=== PATIENT | female | born 1930 | race Caucasian/White ===

== ENCOUNTER 2016-02-11 10:50 | Outpatient (CLI) | payer MEDICARE, OTHER | END 2016-02-11 10:51 | disposition home or self-care (01) | DX: N30.00 Acute cystitis without hematuria (principal) ==

== ENCOUNTER 2016-02-11 11:00 | Outpatient (CLI) | payer MEDICARE, OTHER | END 2016-02-11 11:01 | disposition home or self-care (01) | DX: N30.00 Acute cystitis without hematuria (principal); I10 Essential (primary) hypertension ==

== ENCOUNTER 2016-02-11 14:03 | Emergency (ER) | payer MEDICARE, OTHER ==
[2016-02-11] MEDS ORDERED: SODIUM CHLORIDE 0.9% 1,000 ML IV ONE (15:17)
[2016-02-11] MEDS ORDERED: cefTRIAXone 1 GM in SODIUM CHLORIDE 0.9% MINIBAG 100 ML IV STA (17:28)
== END 2016-02-11 17:47 | disposition home or self-care (01) ==
DX: N30.00 Acute cystitis without hematuria (principal); R06.02 Shortness of breath; R53.1 Weakness; J44.9 Chronic obstructive pulmonary disease, unspecified; K21.9 Gastro-esophageal reflux disease without esophagitis; M19.90 Unspecified osteoarthritis, unspecified site; I10 Essential (primary) hypertension

== ENCOUNTER 2016-03-09 09:03 | Outpatient (CLI) | payer MEDICARE, OTHER | END 2016-03-09 09:04 | disposition home or self-care (01) | DX: D50.9 Iron deficiency anemia, unspecified (principal); R63.4 Abnormal weight loss; N30.90 Cystitis, unspecified without hematuria; R79.9 Abnormal finding of blood chemistry, unspecified ==

== ENCOUNTER 2016-03-17 07:53 | Outpatient (CLI) | payer MEDICARE, OTHER | END 2016-03-17 07:54 | disposition home or self-care (01) | DX: D64.9 Anemia, unspecified (principal) ==

== ENCOUNTER 2016-04-16 09:01 | Outpatient (CLI) | payer MEDICARE, OTHER | END 2016-04-16 09:02 | disposition home or self-care (01) | DX: L29.8 Other pruritus (principal); L57.0 Actinic keratosis; Z85.828 Personal history of other malignant neoplasm of skin; L21.8 Other seborrheic dermatitis ==

== ENCOUNTER 2016-05-07 17:57 | Outpatient (CLI) | payer MEDICARE, OTHER | END 2016-05-07 17:58 | disposition home or self-care (01) | DX: L29.8 Other pruritus (principal) ==

== ENCOUNTER 2016-05-29 18:29 | Outpatient (CLI) | payer MEDICARE, OTHER | END 2016-05-29 18:30 | disposition critical access hospital (66) | DX: R53.1 Weakness (principal) | CPT/HCPCS: A0425; A0429 ==

== ENCOUNTER 2016-05-29 18:43 | Emergency (ER) | payer MEDICARE, OTHER ==
[2016-05-29] MEDS ORDERED: SODIUM CHLORIDE 0.9% 1,000 ML IV ONE (19:02)
== END 2016-05-29 21:25 | disposition home or self-care (01) ==
DX: R53.1 Weakness (principal); M79.1 Myalgia; R19.7 Diarrhea, unspecified; D64.9 Anemia, unspecified; N28.9 Disorder of kidney and ureter, unspecified

== ENCOUNTER 2016-06-03 15:40 | Outpatient (CLI) | payer MEDICARE, OTHER | END 2016-06-03 15:41 | disposition home or self-care (01) | DX: R50.9 Fever, unspecified (principal); M79.1 Myalgia ==

== ENCOUNTER 2016-06-14 08:01 | Outpatient (CLI) | payer MEDICARE, OTHER | END 2016-06-14 08:02 | disposition home or self-care (01) | DX: M35.3 Polymyalgia rheumatica (principal) ==

== ENCOUNTER 2016-06-22 09:35 | Outpatient (CLI) | payer MEDICARE, OTHER | END 2016-06-22 09:36 | disposition home or self-care (01) | DX: M35.3 Polymyalgia rheumatica (principal) ==

== ENCOUNTER 2016-06-26 10:00 | Outpatient (CLI) | payer MEDICARE, OTHER | END 2016-06-26 10:01 | disposition home or self-care (01) | LOC: LAB 10:00 | PROVIDERS: ATTEND Physician Assistant | DX: Z71.89 Other specified counseling (principal); L81.4 Other melanin hyperpigmentation; L29.8 Other pruritus | CPT/HCPCS: 87177; 87209 ==

== ENCOUNTER 2016-06-30 10:12 | Outpatient (CLI) | payer MEDICARE, OTHER | END 2016-06-30 10:13 | disposition home or self-care (01) | LOC: LAB 10:12 | PROVIDERS: ATTEND Internal Medicine | DX: M35.3 Polymyalgia rheumatica (principal) | CPT/HCPCS: 36415; 85651; 86140 ==

== ENCOUNTER 2016-07-02 14:43 | Outpatient (CLI) | payer MEDICARE, OTHER ==
--- NOTE | 2016-07-06 15:20 | DEXA Report ---
DEXA SCAN: 07/02/2016 CLINICAL INDICATION: Osteoporosis. TECHNIQUE: Dual energy x-ray absorptiometry (DXA) was performed on a [employer] system. Regions measured are the AP spine, femoral neck, and, if needed, forearm. COMPARISON: None. In accordance with the International Society for Clinical Densitometry (ISCD) guidelines, data from previous exams may be reanalyzed using current recommendations and techniques. This is done to allow a more accurate basis for comparison with the current study. FINDINGS: The data for the lumbar spine is as follows: REGION BMD (g/cm/cm) T-SCORE Z-SCORE L1 1.019 -0.9 1.6 L2 0.921 -2.3 0.2 L3 1.019 -1.5 1.0 L4 1.152 -0.4 2.1 TOTAL 1.037 -1.2 1.3 NOTE: All evaluable vertebrae are used for classification. The data for the hip is as follows: REGION BMD (g/cm/cm) T-SCORE Z-SCORE Neck 0.738 -2.2 0.7 TOTAL 0.747 -2.1 0.7 NOTE: The femoral neck or total proximal femur, whichever is lowest, is used for classification. * Denotes significant change at the 95% confidence level. Denotes dissimilar scan types or analysis methods. IMPRESSION: THE WHO CLASSIFICATION BASED ON THE INTERNATIONAL REFERENCE STANDARD IS OSTEOPENIA. THE FRACTURE RISK IS INCREASED. RECOMMENDATION: Patients with diagnosis of osteoporosis or osteopenia should have regular bone mineral density assessment. For those eligible for Medicare, routine testing is allowed once every 2 years. Testing frequency can be increased for patients who have rapidly progressing disease or for those who are receiving medical therapy to restore bone mass. COMMENT: World Health Organization (WHO) definitions for osteoporosis and osteopenia: NORMAL BMD: T-score at -1.0 or higher, fracture risk is low. OSTEOPENIA BMD: T-score between -1.0 and -2.5, fracture risk is increased. OSTEOPOROSIS BMD: T-score at -2.5 or lower, fracture risk high. National Osteoporosis Foundation recommends: 1. Obtain adequate dietary calcium (at least 1200 mg per day) and vitamin D (400 -800 international units per day). 2. Participate, as appropriate, in regular weightbearing and muscle- strengthening exercise. 3. Avoid tobacco use and reduce alcohol and caffeine intake. 4. For more detailed information see the website at www.NOF.org. MTDD
== END 2016-07-02 14:44 | disposition home or self-care (01) ==
LOC: DI 14:43
PROVIDERS: ATTEND Internal Medicine
DX: M85.89 Other specified disorders of bone density and structure, multiple sites (principal)
CPT/HCPCS: 77080

== ENCOUNTER 2016-07-14 09:56 | Outpatient (CLI) | payer MEDICARE, OTHER | END 2016-07-14 09:57 | disposition home or self-care (01) | LOC: LAB 09:56 | PROVIDERS: ATTEND Internal Medicine | DX: M35.3 Polymyalgia rheumatica (principal) | CPT/HCPCS: 36415; 85651; 86140 ==

== ENCOUNTER 2016-07-19 20:35 | Inpatient (IN) | payer MEDICARE, OTHER ==
[2016-07-19] MEDS ORDERED: HYDROCORTISONE SUCCINATE 100 MG/2 ML VIAL IVP ONE (20:54)
[2016-07-19] MEDS ORDERED: SODIUM CHLORIDE 0.9% 1,000 ML IV ONE ×5 (21:00→23:37)
[2016-07-19] MEDS ORDERED: HYDROCORTISONE SUCCINATE 100 MG/2 ML VIAL IVP STA (21:00)
--- NOTE | 2016-07-19 21:04 | ED Physician Documentation ---
History of Present Illness - Stated complaint Stated Complaint: BODY ACHES - Chief complaint Chief Complaint: Back Pain - History obtained from History obtained from: Patient, Family - History of Present Illness Timing: Today - Additonal information Additional information: 86 y/o female on prednisone for PMR has developed a cough 3 days ago and today she has developed profound weakness, vomiting and worsening pain of her PMR. She has been tapered to about 10mg this past week and she is getting weekly blood draws to check her ESR. Review of Systems Constitutional: reports: Myalgias. denies: Fever, Chills Eyes: denies: Decreased vision Ears: denies: Ear pain Nose: reports: Rhinorrhea / runny nose, Sinus pressure / pain Throat: denies: Sore throat Cardiac: denies: Chest pain / pressure, Palpitations Respiratory: reports: Cough. denies: Dyspnea GI: reports: Nausea, Vomiting. denies: Abdominal Pain, Constipation, Diarrhea : denies: Dysuria, Frequency Skin: denies: Rash Musculoskeletal: denies: Neck pain, Back pain, Extremity pain Neurologic: reports: Generalized weakness. denies: Focal weakness, Numbness PD PAST MEDICAL HISTORY - Past Medical History Cardiovascular: Arrhythmia Respiratory: COPD Neuro: None Endocrine/Autoimmune: None GI: GERD, Hiatal hernia : Other HEENT: None Psych: None Musculoskeletal: Osteoarthritis, Osteoporosis Derm: Eczema, Psoriasis, Other - Past Surgical History Past Surgical History: Yes General: Cholecystectomy, Colonoscopy, EGD Ortho: Hip replacement, Other /[employer]: Other Cardiovascular: Other HEENT: Cataracts Derm: Skin cancer surgery - Present Medications Home Medications: Ambulatory Orders Medication Instructions Recorded Confirmed Calcium Carbonate [Calcium] 600 mg PO DAILY 04/01/13 05/29/16 Amitriptyline [Elavil] 10 mg PO HS 11/08/13 05/29/16 Montelukast [Singulair] 10 mg PO QPM 05/18/16 05/29/16 Triamcinolone 0.1% Cream [Kenalog 15 gm TOP 05/29/16 0.1% Cream] - Allergies Allergies/Adverse Reactions: Allergies Allergy/AdvReac Type Severity Reaction Status Date / Time ciprofloxacin HCl * Allergy Intermediate Itching Verified 02/11/16 14:32 [From Cipro] Sulfa (Sulfonamide Allergy Mild Respiratory Verified 02/11/16 14:32 Antibiotics) ciprofloxacin [From Cipro] Allergy Itching Verified 02/11/16 14:32 nitrofurantoin Allergy Unknown Verified 02/14/16 15:11 Ubdqeir-Vbg-Dnx Reductase Allergy Cramps Verified 02/11/16 14:32 Inhibitor levofloxacin AdvReac Nausea Verified 02/11/16 14:32 metoprolol AdvReac Respiratory Verified 02/11/16 14:32 shrimp Allergy Severe Anaphylaxis Uncoded 02/11/16 14:32 statin Allergy Unknown Uncoded 02/14/16 15:11 - Social History Does the pt smoke?: No Smoking Status: Never smoker Does the pt drink ETOH?: Yes Does the pt have substance abuse?: No - Immunizations Immunizations are current?: Yes - POLST Patient has POLST: Yes POLST Status: Full Code PD ED PE NORMAL - Vitals Vital signs reviewed: Yes (febrile tachy and hypotensive ) - General General: Well developed/nourished, Other (The patient appears anxious and is in pain ) - HEENT HEENT: Atraumatic, PERRL, EOMI - Neck Neck: Supple, no meningeal sign - Cardiac Cardiac: Other (tachy with a rate of 120 and regular) - Respiratory Respiratory: No respiratory distress, Other (unable to cooperate with exam well. bibasilar rhonchi are present. ) - Abdomen Abdomen: Soft, Non tender, Other (well healed surgical scars without inflamation ) - Back Back: No CVA TTP, No spinal TTP - Derm Derm: Normal color, Warm and dry, No rash - Extremities Extremities: No deformity, No edema - Neuro Neuro: No motor deficit, No sensory deficit - Psych Psych: Normal affect, Other (mood is anxious ) Results - Vitals Vitals: Vital Signs - 24 hr 07/19/16 07/19/16 07/19/16 20:44 21:08 21:39 Temperature 38.4 C H 39.2 C H Heart Rate 122 H 107 H 105 H Respiratory 20 20 26 H Rate Blood Pressure 85/57 L 85/51 L 76/48 L O2 Saturation 100 98 97 07/19/16 07/19/16 07/19/16 21:56 22:06 22:39 Temperature Heart Rate 108 H 106 H 100 Respiratory 28 H 22 18 Rate Blood Pressure 66/40 L 69/52 L 67/52 L O2 Saturation 98 95 93 07/19/16 07/19/1617 23:37 23:50 00:10 Temperature Heart Rate 104 H 101 H 108 H Respiratory 22 29 H 8 L Rate Blood Pressure 74/55 L 76/50 L O2 Saturation 95 94 94 07/20/16 07/20/16 07/20/16 00:15 00:20 00:25 Temperature Heart Rate 105 H 105 H 105 H Respiratory 28 H 26 H 25 H Rate Blood Pressure 120/74 122/72 122/71 O2 Saturation 94 95 96 07/20/16 07/20/16 00:30 00:50 Temperature Heart Rate 104 H 104 H Respiratory 26 H 22 Rate Blood Pressure 123/70 114/74 O2 Saturation 96 97 Oxygen O2 Source Nasal cannula Oxygen Flow Rate 4 - Labs Labs: Laboratory Tests 07/19/16 07/19/16 07/19/16 20:50 20:50 20:50 WBC 10.8 RBC 3.52 L Hgb 11.0 L Hct 33.5 L MCV 95.1 MCH 31.3 H MCHC 32.9 RDW 15.7 H Plt Count 237 MPV 8.3 Neut # Not Reportable Lymph # Not Reportable [place] # Not Reportable Eos # Not Reportable Baso # Not Reportable Absolute Nucleated RBC Not Reportable Total Counted 100 Band Neuts % (Manual) 20 H Neutrophils # (Manual) 9.9 H Lymphocytes # (Manual) 0.1 L Monocytes # (Manual) 0.4 Eosinophils # (Manual) 0.2 Basophils # (Manual) 0.1 Nucleated RBCs Not Reportable Differential Comment MANUAL DIFFERENTIAL Manual Slide Review Indicated WBC Morphology NORMAL APPEARANCE Platelet Estimate NORMAL (130-450,000) Platelet Morphology NORMAL APPEARANCE RBC Morph Micro Appear NORMAL APPEARANCE ESR Sodium 136 Potassium 4.2 Chloride 101 Carbon Dioxide 24 Anion Gap 11.0 BUN 31 H Creatinine 1.5 H Estimated GFR (MDRD) 33 L Glucose 103 H Lactic Acid Calcium 9.2 Total Bilirubin 0.5 AST 24 ALT 17 Alkaline Phosphatase 53 Troponin I < 0.04 C-Reactive Protein 4.0 H Total Protein 6.4 L Albumin 3.5 Globulin 2.9 Albumin/Globulin Ratio 1.2 Lipase 116 H Urine Color Urine Clarity Urine pH Ur Specific [place] Urine Protein Urine Glucose (UA) Urine Ketones Urine Occult Blood Urine Nitrite Urine Bilirubin Urine Urobilinogen Ur Leukocyte Esterase Ur Microscopic Review Urine Culture Comments 07/19/16 07/19/16 07/19/16 20:50 20:50 21:53 WBC RBC Hgb Hct MCV MCH MCHC RDW Plt Count MPV Neut # Lymph # [place] # Eos # Baso # Absolute Nucleated RBC Total Counted Band Neuts % (Manual) Neutrophils # (Manual) Lymphocytes # (Manual) Monocytes # (Manual) Eosinophils # (Manual) Basophils # (Manual) Nucleated RBCs Differential Comment Manual Slide Review WBC Morphology Platelet Estimate Platelet Morphology RBC Morph Micro Appear ESR 29 Sodium Potassium Chloride Carbon Dioxide Anion Gap BUN Creatinine Estimated GFR (MDRD) Glucose Lactic Acid 2.3 H Calcium Total Bilirubin AST ALT Alkaline Phosphatase Troponin I C-Reactive Protein Total Protein Albumin Globulin Albumin/Globulin Ratio Lipase Urine Color YELLOW Urine Clarity CLEAR Urine pH 7.5 Ur Specific [place] 1.010 Urine Protein NEGATIVE Urine Glucose (UA) NEGATIVE Urine Ketones NEGATIVE Urine Occult Blood NEGATIVE Urine Nitrite NEGATIVE Urine Bilirubin NEGATIVE Urine Urobilinogen 0.2 (NORMAL) Ur Leukocyte Esterase NEGATIVE Ur Microscopic Review NOT INDICATED Urine Culture Comments NOT INDICATED - Rads (name of study) 2 view chest Radiology: Prelim report reviewed (Impression: No acute cardiopulmonary abnormality.), EMP read indepedently, See rad report 1 view chest Radiology: Prelim report reviewed (Impression: Right IJ line to the low SVC, otherwise no change. No pneumothorax identified.), EMP read indepedently, See rad report CT chest without Radiology: Prelim report reviewed (Impression: 1. New bibasilar pulmonary opacities, right greater than left, with small pleural effusions. Suspect pneumonia or aspiration. 2. Increased interstitial prominence which may represent pulmonary edema. 3. Groundglass opacity in the left upper lobe appears more tense and slightly larger compared with the prior exam. Slowly growing neoplasm not excluded. 4. Mildly enlarged paratracheal lymph node measuring 1 point exam air. This is nonspecific.), EMP read indepedently, See rad report CT ab/pel w/o Radiology: Prelim report reviewed (Impression: 1. See chest CT report regarding pulmonary findings. 2. Multiple nonspecific normal to upper normal caliper fluid -filled small bowel loops with air-fluid levels. 3. Moderate stool in the colon. ), EMP read indepedently, See rad report Procedures - Central Line Central Line Preparation: Ultrasound used, Sterile prep and drape Central line location: Right IJ Central line type: Triple lumen Central line aftercare: Chlorhexidine disc placed, Secured - IVC sono (time) 2100 Bedside IVC sono: IVC measures (cm) (1.02), IVC collapsed c insp (cm) (complete) , Dehydration 2350 Bedside IVC sono: IVC measures (cm) (1.47), IVC collapsed c insp (cm) (1.20), Euvolemia PD MEDICAL DECISION MAKING - ED course Complexity details: reviewed old records, reviewed results, re-evaluated patient , considered differential, d/w patient, d/w family ED course: 86 y/o female being treated for PMR has developed a cough and now is profoundly weak. She is found to have low central venous pressure and IV saline is given as well as stress dose of hydrocortisone. She is febrile, tachycardic and hypotensive on arrival. She meets criteria for admission for sepsis and Dr. Begum is consulted in the case at 2200 and recommends placement of a central line and administration of zosyn and vanco as well as a CT of the abdomen and pelvis and chest. The central line is placed and the fluid rates is decreased to 200ml/hr and levophed is started. The patient has remained alert, talkative and oriented. Prior to transfer to the CT scan the patient's CVP is checked by ultrasound and is normal. CT demonstrates bibasilar infiltrates. She does have improvement in her blood pressure on levofed and is transferred to the CCU on levophed with a motley in place. Departure - Departure Disposition: [address] [facility] DC/Xfer Clinical Impression: Sepsis Qualifiers: Sepsis type: sepsis due to unspecified organism Qualified Code(s): A41.9 - Sepsis, unspecified organism Pneumonia Qualifiers: Pneumonia type: due to unspecified organism Laterality: bilateral Lung location : lower lobe of lung Qualified Code(s): J18.9 - Pneumonia, unspecified organism Condition: Serious
[2016-07-19 21:13] LABS: BASOPHILS % (AUTO) 0.2 %; EOSINOPHILS % (AUTO) 0.9 %; HCT - HEMATOCRIT 33.5 % (37.0-47.0); LYMPHOCYTES % (AUTO) 4.4 %; MEAN CORPUSCULAR HEMOGLOBIN 31.3 pg (27.0-31.0); MEAN CORPUSCULAR HGB CONC 32.9 g/dL (32.0-36.0); MEAN CORPUSCULAR VOLUME 95.1 fL (81.0-99.0); MEAN PLATELET VOLUME 8.3 fL (7.9-10.8); MONOCYTES % (AUTO) 3.5 %; RED BLOOD COUNT 3.52 10^6/uL (4.20-5.40); RED CELL DISTRIBUTION WIDTH 15.7 % (12.0-15.0); UNCORRECTED WHITE BLOOD COUNT 10.8 x10^3/uL; WHITE BLOOD COUNT 10.8 x10^3/uL (4.8-10.8)
[2016-07-19 21:31] LABS: ALBUMIN/GLOBULIN RATIO 1.2 (1.0-2.2); BILIRUBIN,TOTAL 0.5 mg/dL (0.2-1.0); CALCIUM 9.2 mg/dL (8.5-10.3); CREATININE 1.5 mg/dL (0.4-1.0); POTASSIUM 4.2 mmol/L (3.5-5.0); TOTAL PROTEIN 6.4 g/dL (6.7-8.2)
[2016-07-19] MEDS ORDERED: ACETAMINOPHEN 325 MG TABLET PO ONE (21:40)
--- NOTE | 2016-07-19 21:45 | XRAY Preliminary Report ---
Exam: XR Chest 2 View PA/LAT IMPRESSION: No acute cardiopulmonary abnormality. [facility] SITE ID: [id number]
--- NOTE | 2016-07-19 21:47 | XRAY Report ---
EXAM: CHEST RADIOGRAPHY EXAM DATE: 07/19/2016 09:16 PM. CLINICAL HISTORY: Cough weakness. COMPARISON: 05/29/2016 chest x-ray. TECHNIQUE: 2 views. FINDINGS: Lungs/Pleura: No focal opacities evident. No pleural effusion. No pneumothorax. Normal volumes. Mediastinum: Normal heart size and mitral annulus calcifications noted. Other: None. IMPRESSION: No acute cardiopulmonary abnormality. [facility] Referring Provider Line: [phone] SITE ID: [id number]
[2016-07-19] MEDS ORDERED: ACETAMINOPHEN 325 MG TABLET PO STA (21:51)
[2016-07-19] MEDS ORDERED: cefTRIAXone 1 GM VIAL ONE (21:59)
[2016-07-19 22:01] LABS: BAND NEUTROPHILS % (MANUAL) 20 %; BASOPHILS % (MANUAL) 1 %; EOSINOPHILS % (MANUAL) 2 %; LYMPHOCYTES % (MANUAL) 1 %; NEUTROPHILS % (MANUAL) 72 %; TOTAL CELLS COUNTED 100
[2016-07-19 22:03] LABS: PLATELET ESTIMATE, MANUAL NORMAL (130-450,000) (NORMAL); PLATELET MORPHOLOGY NORMAL APPEARANCE (NORMAL); WBC MORPHOLOGY (MULTIPLE) NORMAL APPEARANCE (NORMAL)
[2016-07-19] MEDS ORDERED: VANCOMYCIN INJ 1 GM in SODIUM CHLORIDE 0.9% 250 ML IV STA (22:03)
[2016-07-19] MEDS ORDERED: PIPERACILLIN/TAZOBACTAM 4.5 GM in SODIUM CHLORIDE 0.9% MINIBAG 100 ML IV STA (22:03)
[2016-07-19 22:04] LABS: NP AUTO DIFFERENTIAL? YES; NP MAN DIFFERENTIAL? NO
[2016-07-19 22:05] LABS: BILIRUBIN,URINE NEGATIVE (NEGATIVE); PH,URINE 7.5 PH (5.0-7.5)
[2016-07-19 22:08] LABS: UA CHARGE (STRIP ONLY) YES; UR CULTURE IF IND NOT INDICATED
[2016-07-19] MEDS ORDERED: VANCOMYCIN 1 GM VIAL ONE (22:54)
[2016-07-19] MEDS ORDERED: SODIUM CHLORIDE 0.9% 250 ML IV ONE (22:55)
--- NOTE | 2016-07-19 23:54 | XRAY Preliminary Report ---
Exam: XR Chest 1 View IMPRESSION: Right IJ line to the low SVC, otherwise no change. No pneumothorax identified. [facility] SITE ID: [id number]
--- NOTE | 2016-07-19 23:57 | XRAY Report ---
EXAM: CHEST RADIOGRAPHY EXAM DATE: 07/19/2016 11:40 PM. CLINICAL HISTORY: Line placement. COMPARISON: Today at 2108. TECHNIQUE: 1 view. FINDINGS: Lungs/Pleura: No focal opacities evident. No pleural effusion. No pneumothorax. Mediastinum: Within exam limitations, cardiomediastinal contour is normal. Other: Right IJ line to the low SVC. IMPRESSION: Right IJ line to the low SVC, otherwise no change. No pneumothorax identified. [facility] Referring Provider Line: [phone] SITE ID: [id number]
[2016-07-20] MEDS ORDERED: SODIUM CHLORIDE 0.9% 1,000 ML IV ONE ×2 (00:22→00:45)
[2016-07-20] MEDS ORDERED: ONDANSETRON 4 MG/2 ML VIAL IVP STA (00:35)
[2016-07-20] MEDS ORDERED: HYDROmorphone 1 MG/ML SYRINGE IVP STA (00:35)
[2016-07-20] MEDS ORDERED: HYDROmorphone 1 MG/ML SYRINGE ONE (00:44)
--- NOTE | 2016-07-20 00:44 | CT Report ---
EXAM: CT CHEST EXAM DATE: 07/20/2016 12:18 AM. CLINICAL HISTORY: RUQ pain, sepsis, cough. COMPARISONS: 10/18/2015. TECHNIQUE: Routine helical CT imaging was performed through the chest. IV contrast: None. Reconstructions: Coron al and sagittal. In accordance with CT protocol optimization, one or more of the following dose reduction techniques w ere utilized for this exam: automated exposure control, adjustment of mA and/or KV based on patient s ize, or use of iterative reconstructive technique. FINDINGS: Lungs/Pleura: There are new bibasilar infiltrates, right greater than left. Small bilateral pleural e ffusions are seen. There is bilateral interstitial prominence possibly representing pulmonary edema. Groundglass opacity in the left upper lobe appears more dense and slightly larger compared with the p rior exam. No pneumothorax is seen. There is emphysema. Mediastinum: Heart size is normal to upper normal. Coronary artery calcifications and mitral annulus calcification again seen. Pretracheal lymph node measuring 1.2 cm. Small hiatal hernia. Aorta and arc h vessels show moderate atherosclerosis. Bones: Osteopenia. Degenerative changes in the spine. Degenerative joint disease in the shoulders. Visualized Abdomen: See abdomen and pelvis CT report. Other: None. IMPRESSION: 1. New bibasilar pulmonary opacities, right greater than left, with small pleural effusions. Suspect pneumonia or aspiration. 2. Increased interstitial prominence which may represent pulmonary edema. 3. Groundglass opacity in the left upper lobe appears more dense and slightly larger compared with th e prior exam. Slowly growing neoplasm not excluded. 4. Mildly enlarged pretracheal lymph node measuring 1.2 cm. This is nonspecific. [facility] Referring Provider Line: [phone] SITE ID: [id number]
[2016-07-20] MEDS ORDERED: ONDANSETRON 4 MG/2 ML VIAL ONE (00:45)
--- NOTE | 2016-07-20 00:50 | CT Preliminary Report ---
Exam: CT Abdomen/Pelvis W/O IMPRESSION: 1. See chest CT report regarding pulmonary findings. 2. Multiple nonspecific normal to upper normal caliber fluid-filled small bowel loops with air-fluid levels. 3. Moderate stool in the colon. [facility] SITE ID: [id number]
[2016-07-20] MEDS ORDERED: HYDROmorphone 1 MG/ML SYRINGE IVP PRN (00:52)
[2016-07-20] MEDS ORDERED: ONDANSETRON 4 MG/2 ML VIAL IVP PRN (00:52)
[2016-07-20] MEDS ORDERED: ALBUTEROL NEB 2.5 MG/3 ML INH PRN (00:52)
--- NOTE | 2016-07-20 00:52 | CT Report ---
EXAM: CT ABDOMEN AND PELVIS EXAM DATE: 07/20/2016 12:18 AM. CLINICAL HISTORY: Abdominal pain and sepsis. COMPARISONS: 12/20/2013. TECHNIQUE: Routine helical CT imaging was performed through the abdomen and pelvis. IV contrast: None . Enteric contrast: No. Reconstructions: Coronal and sagittal. In accordance with CT protocol optimization, one or more of the following dose reduction techniques w ere utilized for this exam: automated exposure control, adjustment of mA and/or KV based on patient s ize, or use of iterative reconstructive technique. FINDINGS: Lung Bases: See chest CT report. Liver: No focal lesion identified on this noncontrast examination. Gallbladder/Bile Ducts: Gallbladder is not seen. Spleen: Normal. Pancreas: Normal. Adrenal Glands: Normal. Kidneys: No obvious masses or hydronephrosis. Peritoneal Cavity/Bowel: Multiple normal to upper normal caliber fluid-filled small bowel loops with air-fluid levels. Moderate stool in the colon. No diverticulitis seen. No free air or free fluid. Nor mal-sized retroperitoneal lymph nodes. Appendix is not well seen. No evidence of appendicitis. Pelvic Organs: Streak artifact. Pelvic floor relaxation. Visualized pelvic organs are otherwise gross ly unremarkable. Vasculature: Severe atherosclerosis. Bones: Osteopenia. Right hip prosthesis. Grade 1 degenerative spondylolisthesis at L5-S1. Degenerativ e joint disease in the left hip. Other: None. IMPRESSION: 1. See chest CT report regarding pulmonary findings. 2. Multiple nonspecific normal to upper normal caliber fluid-filled small bowel loops with air-fluid levels. 3. Moderate stool in the colon. [facility] Referring Provider Line: [phone] SITE ID: [id number]
[2016-07-20] MEDS ORDERED: TRIAMCINOLONE 0.1% CREAM 15 GM TUBE TOP PRN (01:19)
[2016-07-20] MEDS: AZITHROMYCIN INJ 500 MG in SODIUM CHLORIDE 0.9% 250 ML IV SCH ×2 (02:14→09:03)
[2016-07-20] MEDS: FAMOTIDINE 20 MG/50 ML 50 ML IV SCH ×2 (02:14→09:04)
[2016-07-20] MEDS ORDERED: FLUMAZENIL 0.1 MG/1 ML 5 ML MDV IVP ONE (02:17)
--- NOTE | 2016-07-20 02:17 | PROVIDER PROGRESS NOTE ---
Assessment/Plan - Lab Result Lab results reviewed: Yes Fish Bone Diagrams: 07/20/16 03:55 07/20/16 03:55 - EKG Results EKG Comparison: Other (Pending) - Additional Planning My Orders: My Active Orders 07/20/16 00:58 Straight Catheter Insertion [RC] PRN 07/20/16 01:00 CUL, RESPIRATORY [RM] Routine GRAM STAIN [RM] Routine Dextrose 5% [D5w] 242 ml NORepinephrine [Levophed] 8 mg IV 8 mcg/min 07/20/16 01:02 EKG - Electrocardiogram [RC] .ONCE 07/20/16 01:19 Triamcinolone 0.1% Cream [Kenalog 0.1% Cream] 0 applic TOP BID PRN 07/20/16 01:35 RT [Nebulizer/MDI Tx.] [RC] .q4prn 07/20/16 02:03 LACTIC ACID, VENOUS [CHEM] Q2H TROPONIN I [IAI] Q6H 07/20/16 02:58 LACTIC ACID, VENOUS [CHEM] Q2H 07/20/16 04:58 LACTIC ACID, VENOUS [CHEM] Q2H 07/20/16 05:00 CBC - COMP BLD CT W/AUTO DIFF [HEME] DAILYLAB 07/20/16 06:00 Hydrocortisone Succinate [Solu-CORTEF] 100 mg IVP Q6HR Piperacillin/Tazobactam [Zosyn] 3.375 gm Sodium Chloride 0.9% Minibag [Normal Saline 0.9% Minibag] 100 ml IV Q6HR 07/20/16 06:58 LACTIC ACID, VENOUS [CHEM] Q2H 07/20/16 07:03 TROPONIN I [IAI] Q6H 07/20/16 08:58 LACTIC ACID, VENOUS [CHEM] Q2H 07/20/16 13:03 TROPONIN I [IAI] Q6H 07/20/16 21:00 Montelukast [Singulair] 10 mg PO QPM Subjective - Subjective Patient Reports: Other (Asked to see patient for increased drowsiness, somnolence and hypoxia. Pt received some iv ativan due to agitation and also hx of ETOH dependence. She was not hypertensive or tachycardic and still agittaed so given zyprexa 5 mg im. About an ho) Objective Vital Signs: Vital Signs - 24 hr 07/20/16 07/20/16 01:00 01:18 Heart Rate 106 H 106 H Respiratory 20 20 Rate Blood Pressure 108/64 101/63 O2 Saturation 96 96 Oxygen O2 Source Nasal cannula - Results Results: Laboratory Results WBC 10.8 x10^3/uL (4.8-10.8) 07/19/16 20:50 RBC 3.52 10^6/uL (4.20-5.40) L 07/19/16 20:50 Hgb 11.0 g/dL (12.0-16.0) L 07/19/16 20:50 Hct 33.5 % (37.0-47.0) L 07/19/16 20:50 MCV 95.1 fL (81.0-99.0) 07/19/16 20:50 MCH 31.3 pg (27.0-31.0) H 07/19/16 20:50 MCHC 32.9 g/dL (32.0-36.0) 07/19/16 20:50 RDW 15.7 % (12.0-15.0) H 07/19/16 20:50 Plt Count 237 10^3/uL (130-450) 07/19/16 20:50 MPV 8.3 fL (7.9-10.8) 07/19/16 20:50 Neut # Not Reportable 07/19/16 20:50 Lymph # Not Reportable 07/19/16 20:50 [place] # Not Reportable 07/19/16 20:50 Eos # Not Reportable 07/19/16 20:50 Baso # Not Reportable 07/19/16 20:50 Absolute Nucleated RBC Not Reportable 07/19/16 20:50 Total Counted 100 07/19/16 20:50 Band Neuts % (Manual) 20 % (0-10) H 07/19/16 20:50 Neutrophils # (Manual) 9.9 10^3/uL (1.5-6.6) H 07/19/16 20:50 Lymphocytes # (Manual) 0.1 10^3/uL (1.5-3.5) L 07/19/16 20:50 Monocytes # (Manual) 0.4 10^3/uL (0.0-1.0) 07/19/16 20:50 Eosinophils # (Manual) 0.2 10^3/uL (0-0.7) 07/19/16 20:50 Basophils # (Manual) 0.1 10^3/uL (0-0.1) 07/19/16 20:50 Nucleated RBCs Not Reportable 07/19/16 20:50 Differential Comment MANUAL DIFFERENTIAL 07/19/16 20:50 Manual Slide Review Indicated 07/19/16 20:50 WBC Morphology NORMAL APPEARANCE (NORMAL) 07/19/16 20:50 Platelet Estimate NORMAL (130-450,000) (NORMAL) 07/19/16 20:50 Platelet Morphology NORMAL APPEARANCE (NORMAL) 07/19/16 20:50 RBC Morph Micro Appear NORMAL APPEARANCE (NORMAL) 07/19/16 20:50 ESR 29 mm/Hr (0-30) 07/19/16 20:50 Sodium 136 mmol/L (135-145) 07/19/16 20:50 Potassium 4.2 mmol/L (3.5-5.0) 07/19/16 20:50 Chloride 101 mmol/L (101-111) 07/19/16 20:50 Carbon Dioxide 24 mmol/L (21-32) 07/19/16 20:50 Anion Gap 11.0 (6-13) 07/19/16 20:50 BUN 31 mg/dL (6-20) H 07/19/16 20:50 Creatinine 1.5 mg/dL (0.4-1.0) H 07/19/16 20:50 Estimated GFR (MDRD) 33 (>89) L 07/19/16 20:50 Glucose 103 mg/dL (70-100) H 07/19/16 20:50 Lactic Acid 2.3 mmol/L (0.5-2.2) H 07/19/16 20:50 Calcium 9.2 mg/dL (8.5-10.3) 07/19/16 20:50 Total Bilirubin 0.5 mg/dL (0.2-1.0) 07/19/16 20:50 AST 24 IU/L (10-42) 07/19/16 20:50 ALT 17 IU/L (10-60) 07/19/16 20:50 Alkaline Phosphatase 53 IU/L (42-121) 07/19/16 20:50 Troponin I < 0.04 ng/mL (<0.49) 07/19/16 20:50 C-Reactive Protein 4.0 mg/dL (0-1.0) H 07/19/16 20:50 Total Protein 6.4 g/dL (6.7-8.2) L 07/19/16 20:50 Albumin 3.5 g/dL (3.2-5.5) 07/19/16 20:50 Globulin 2.9 g/dL (2.1-4.2) 07/19/16 20:50 Albumin/Globulin Ratio 1.2 (1.0-2.2) 07/19/16 20:50 Lipase 116 U/L (22-51) H 07/19/16 20:50 Urine Color YELLOW 07/19/16 21:53 Urine Clarity CLEAR (CLEAR) 07/19/16 21:53 Urine pH 7.5 PH (5.0-7.5) 07/19/16 21:53 Ur Specific [place] 1.010 (1.002-1.030) 07/19/16 21:53 Urine Protein NEGATIVE mg/dL (NEGATIVE) 07/19/16 21:53 Urine Glucose (UA) NEGATIVE mg/dL (NEGATIVE) 07/19/16 21:53 Urine Ketones NEGATIVE mg/dL (NEGATIVE) 07/19/16 21:53 Urine Occult Blood NEGATIVE (NEGATIVE) 07/19/16 21:53 Urine Nitrite NEGATIVE (NEGATIVE) 07/19/16 21:53 Urine Bilirubin NEGATIVE (NEGATIVE) 07/19/16 21:53 Urine Urobilinogen 0.2 (NORMAL) E.U./dL (NORMAL) 07/19/16 21:53 Ur Leukocyte Esterase NEGATIVE (NEGATIVE) 07/19/16 21:53 Ur Microscopic Review NOT INDICATED 07/19/16 21:53 Urine Culture Comments NOT INDICATED 07/19/16 21:53 - Procedures Procedures: Procedures CATARAC PHACOEMULS/ASPIR (03/20/14) ESOPHAGOGASTRODUODENOSCOPY [EGD] W/CLOSED BIOPSY (11/08/13) INSERT LENS AT CATAR EXT (03/20/14)
[2016-07-20] MEDS: HEPARIN 5,000 UNIT/ML VIAL SUBQ SCH ×3 (02:45→20:13)
--- NOTE | 2016-07-20 03:19 | HISTORY & PHYSICAL EXAMINATION ---
DATE OF ADMISSION: 07/20/2016 PRIMARY CARE PROVIDER: Reji Baeza MD. CHIEF COMPLAINT: Fevers, chills, weakness. HISTORY OF PRESENT ILLNESS: This is an 86-year-old female who presents with several days of a slight cough, generally nonproductive. She also felt weak. She had some vomiting today. Also notes significa nt right upper abdominal pain and right posterior back pain in the same area, which started today. Rosalee turner does have a history of PMR, currently is on a taper of prednisone 10 mg p.o. daily. [facility] in [facility] upon presentation, she was found to have profound hypotension down to 66/40 with a heart rate of 108 sinus, T-max in the emergency room was 39.2. She also had a central line placed in the em ergency room and started on IV Levophed for blood pressure support along with aggressive IV fluids. H er O2 saturations have been approximately 4 liters nasal cannula 96%. She does have intact mentation. Initial chest x-ray did not reveal any acute abnormalities. Because she was having right upper quadr ant pain, right lower back pain, CT of chest, abdomen and pelvis without contrast as she does have ch ronic kidney disease with GFR of 33 was done and revealed new bibasilar primary opacities, right grea ter than left, with small pleural effusions, suspect pneumonia or aspiration, increased interstitial prominence, may represent pulmonary edema. Ground glass opacity in left upper lobe appears more dense and slightly larger compared with prior exam. Slowly growing neoplasm cannot be excluded. Mildly enl arged peritracheal lymph node measuring 1.2 cm, multiple nonspecific normal to the upper normal calib er fluid filled small bowel loops with air fluid levels noted. Moderate stool in the colon seen. Lact ic acid was noted to be 2.3. White count 10.8 with 20% bands, 9.9 neutrophils. Urine was negative for infection. PAST MEDICAL HISTORY 1. Polymyalgia rheumatica, currently on steroid therapy. 2. History of COPD. Still smokes occasionally. 3. History of osteoporosis. 4. History of eczema and psoriasis. 5. Status post cholecystectomy. 6. Status post hip replacement. 7. History of monoclonal gammopathy of undetermined significance. 8. History of bladder cancer. 9. History of hyperlipidemia. 10. History of appendectomy. 11. History of supraventricular tachycardia with ablation. 12. History of dyspepsia. ALLERGIES 1. CIPROFLOXACIN. 2. SULFA. 3. LEVAQUIN. MEDICATIONS UPON ADMISSION 1. Amitriptyline 10 mg p.o. at bedtime. 2. Calcium carbonate 500 mg p.o. daily. 3. Montelukast 10 mg p.o. q.p.m. 4. Triamcinolone 0.1% topically to skin p.r.n. SOCIAL HISTORY: Lives with . History of smoking, continues to smoke maybe 1-2 cigarettes daily . Alcohol is rare. FAMILY MEDICAL HISTORY: Mom at the age of 99 of dementia. One child committed suicide. REVIEW OF SYSTEMS: All other review of systems are reviewed and are negative except for as documented in the HPI. The patient denies any chest pain, denies any lower extremity swelling. PHYSICAL EXAMINATION VITAL SIGNS: Heart rate 101, blood pressure 76/50, respiratory rate 29, 4 liters nasal cannula, O2 sa turation 94%. CONSTITUTIONAL: Elderly woman who is in moderate pain distress. HEAD: Normocephalic, atraumatic. EYES: PERLLA-DC. EOMI. MOUTH: No lesions. NECK: No adenopathy. Carotids 2+/4, right has mild bruit. CHEST: Crackles at her bases. COR: Tachycardic, S1, S2 without murmur. ABDOMEN: Soft. There is tenderness in the right upper quadrant. There also is some tenderness to palp ation over the right CVA area. No rebound, no guarding. Bowel sounds are present. EXTREMITIES: No pedal edema. SKIN: No rashes. PSYCHIATRIC: Mood and affect are appropriate. NEUROLOGIC: Alert and oriented x3. Motor strength is intact bilaterally. LABORATORY DATA: As above, also to include urine, specific gravity 1.010, otherwise negative. Sodium 136, potassium 4.2, chloride 101, bicarbonate 24, anion gap 11, BUN 31, creatinine 1.5, calculated GF R 33, which is stable for her, glucose 103, lactic acid 2.3, calcium 9.2, total bilirubin 0.5, AST 24 , ALT 17, alkaline phosphatase 53. Troponin less than 0.04. C-reactive protein 4.0, total protein 6.4 , albumin 3.5, lipase 116. White count 10.8, hemoglobin 11.0, hematocrit 33.5, MCV 95.1, platelets 23 7 with 20% bands. EKG is pending at the time of this dictation. ASSESSMENT AND PLAN 1. Septic shock secondary to bibasilar pneumonia, right greater than left, acute, present on admissio n. We will treat with IV Zosyn and IV azithromycin. This will cover for community-acquired pneumonia, as well as possible aspiration pneumonia. The patient did have an episode of vomiting today. Hence, one might consider aspiration also. The patient will be in ICU. We will monitor CVP, fluid resuscitat ion as appropriate, and we will also start low dose Levophed to maintain MAP at 65. Also, check sputu m studies. Monitor q.2h. lactic acid levels to ensure improvement. 2. Stage III chronic kidney disease, present on admission. GFR is fairly stable at 33. Will continue to monitor. 3. Acute respiratory failure with tachypnea secondary to pneumonia and possibly underlying chronic ob structive pulmonary disease. We will go ahead and replete oxygen and give support as necessary. 4. Deep venous thrombosis prophylaxis. We will use SCDs and place on subcutaneous heparin, renally ad justed. 5. CODE STATUS. The patient is FULL CODE. TIME SPENT: 60 minutes. JOB #: [id number] EXT JOB #:[id number]
[2016-07-20] MEDS: SODIUM CHLORIDE 0.9% 1,000 ML IV SCH ×3 (03:30→23:55)
[2016-07-20 04:04] LABS: BASOPHILS % (AUTO) 0.2 %; HCT - HEMATOCRIT 29.1 % (37.0-47.0); HGB - HEMOGLOBIN 9.4 g/dL (12.0-16.0); LYMPHOCYTES % (AUTO) 2.4 %; MEAN CORPUSCULAR HEMOGLOBIN 30.9 pg (27.0-31.0); MEAN CORPUSCULAR HGB CONC 32.3 g/dL (32.0-36.0); MEAN CORPUSCULAR VOLUME 95.7 fL (81.0-99.0); MONOCYTES % (AUTO) 8.1 %; NEUTROPHILS % (AUTO) 89.3 %; RED BLOOD COUNT 3.04 10^6/uL (4.20-5.40); RED CELL DISTRIBUTION WIDTH 15.3 % (12.0-15.0); UNCORRECTED WHITE BLOOD COUNT 23.6 x10^3/uL; WHITE BLOOD COUNT 23.6 x10^3/uL (4.8-10.8)
[2016-07-20 04:17] LABS: ALBUMIN/GLOBULIN RATIO 1.2 (1.0-2.2); BILIRUBIN,TOTAL 0.9 mg/dL (0.2-1.0); CALCIUM 7.1 mg/dL (8.5-10.3)
[2016-07-20 04:56] LABS: BAND NEUTROPHILS % (MANUAL) 37 %; LYMPHOCYTES % (MANUAL) 5 %; NEUTROPHILS % (MANUAL) 52 %; TOTAL CELLS COUNTED 100
[2016-07-20 04:57] LABS: NP AUTO DIFFERENTIAL? YES; NP MAN DIFFERENTIAL? NO; PLATELET ESTIMATE, MANUAL NORMAL (130-450,000) (NORMAL); PLATELET MORPHOLOGY NORMAL APPEARANCE (NORMAL)
[2016-07-20] MEDS ORDERED: PIPERACILLIN/TAZOBACTAM 3.375 GM in SODIUM CHLORIDE 0.9% MINIBAG 100 ML IV SCH (06:00)
[2016-07-20] MEDS: SODIUM CHLORIDE FLUSH 0.9% 10 ML SYRINGE IVP SCH ×3 (06:06→21:17)
[2016-07-20] MEDS: HYDROCORTISONE SUCCINATE 100 MG/2 ML VIAL IVP SCH ×3 (06:12→20:13)
[2016-07-20] MEDS ORDERED: CALCIUM GLUCONATE 1,000 MG in SODIUM CHLORIDE 0.9% 50 ML IV ONE (08:00)
[2016-07-20] MEDS: SODIUM CHLORIDE FLUSH 0.9% 10 ML SYRINGE IVP PRN ×2 (08:20→10:29)
[2016-07-20 08:33] LABS: CALCIUM, IONIZED 1.05 mmol/L (1.15-1.33); VBG PH 7.266 (7.31-7.41)
[2016-07-20 08:38] LABS: MAGNESIUM 1.6 mg/dL (1.7-2.8); PHOSPHORUS 3.3 mg/dL (2.5-4.6)
[2016-07-20 09:02] LABS: BASOPHILS % (AUTO) 0.2 %; EOSINOPHILS % (AUTO) 0.1 %; HCT - HEMATOCRIT 29.5 % (37.0-47.0); HGB - HEMOGLOBIN 9.9 g/dL (12.0-16.0); LYMPHOCYTES % (AUTO) 2.2 %; MEAN CORPUSCULAR HEMOGLOBIN 31.7 pg (27.0-31.0); MEAN CORPUSCULAR HGB CONC 33.6 g/dL (32.0-36.0); MEAN CORPUSCULAR VOLUME 94.5 fL (81.0-99.0); MEAN PLATELET VOLUME 7.8 fL (7.9-10.8); MONOCYTES % (AUTO) 9.1 %; NEUTROPHILS % (AUTO) 88.4 %; RED BLOOD COUNT 3.13 10^6/uL (4.20-5.40); RED CELL DISTRIBUTION WIDTH 15.7 % (12.0-15.0)
[2016-07-20] MEDS: PIPERACILLIN/TAZOBACTAM 3.375 GM in SODIUM CHLORIDE 0.9% MINIBAG 100 ML IV SCH ×2 (09:13→16:38)
[2016-07-20 09:14] LABS: ALBUMIN/GLOBULIN RATIO 1.1 (1.0-2.2); BILIRUBIN,TOTAL 0.8 mg/dL (0.2-1.0); BUN - BLOOD UREA NITROGEN 24 mg/dL (6-20); CALCIUM 7.3 mg/dL (8.5-10.3); CARBON DIOXIDE - CO2 17 mmol/L (21-32); CHLORIDE 115 mmol/L (101-111); CREATININE 1.2 mg/dL (0.4-1.0); GFR - MDRD 42 (>89); GLUCOSE 143 mg/dL (70-100); MAGNESIUM 1.5 mg/dL (1.7-2.8); PHOSPHORUS 3.3 mg/dL (2.5-4.6); POTASSIUM 4.3 mmol/L (3.5-5.0); SODIUM 140 mmol/L (135-145); TOTAL PROTEIN 5.3 g/dL (6.7-8.2)
[2016-07-20 09:19] LABS: CALCIUM, IONIZED 1.06 mmol/L (1.15-1.33); VBG PH 7.25 (7.31-7.41)
[2016-07-20 10:24] LABS: BAND NEUTROPHILS % (MANUAL) 44 %; LYMPHOCYTES % (MANUAL) 2 %; NEUTROPHILS % (MANUAL) 46 %; TOTAL CELLS COUNTED 100
[2016-07-20] MEDS: ACETAMINOPHEN 325 MG TABLET PO PRN ×2 (10:24→20:04)
[2016-07-20 10:25] LABS: NP AUTO DIFFERENTIAL? YES; NP MAN DIFFERENTIAL? NO
[2016-07-20] MEDS ORDERED: MAGNESIUM SULFATE 2 GRAM 50 ML IV SCH (12:00)
--- NOTE | 2016-07-20 16:16 | PROVIDER PROGRESS NOTE ---
Hospitalist Cross-cover Note - Cross-Cover Note Cross-Cover Note: Patient was admitted for septic shock secondary to pneumonia. On levophed this morning but alert and breathing well on O2. Lactate improved. Patient with elevated Trop peaked at 1.46 likely secondary to septic shock. Echo showed normal EF and no wall motion abnormalities. Patient not started on heparin drip. Continue broad spectrum IV abx with vanco and zosyn. Improving slowly. Wean levophed today. Will monitor closely.
[2016-07-20] MEDS: MONTELUKAST 10 MG TABLET PO SCH (20:03)
[2016-07-21] MEDS: HYDROCORTISONE SUCCINATE 100 MG/2 ML VIAL IVP SCH ×4 (00:06→18:00)
[2016-07-21] MEDS: SODIUM CHLORIDE 0.9% 1,000 ML IV SCH ×5 (00:53→19:51)
[2016-07-21] MEDS: PIPERACILLIN/TAZOBACTAM 3.375 GM in SODIUM CHLORIDE 0.9% MINIBAG 100 ML IV SCH ×3 (00:53→17:24)
[2016-07-21 04:45] LABS: BASOPHILS % (AUTO) 0.1 %; HCT - HEMATOCRIT 28.6 % (37.0-47.0); HGB - HEMOGLOBIN 9.4 g/dL (12.0-16.0); LYMPHOCYTES # (AUTO) 0.6 10^3/uL (1.5-3.5); LYMPHOCYTES % (AUTO) 2.4 %; MEAN CORPUSCULAR HEMOGLOBIN 31.3 pg (27.0-31.0); MEAN CORPUSCULAR HGB CONC 32.9 g/dL (32.0-36.0); MEAN CORPUSCULAR VOLUME 95.2 fL (81.0-99.0); MEAN PLATELET VOLUME 8.5 fL (7.9-10.8); MONOCYTES # (AUTO) 1.4 10^3/uL (0.0-1.0); MONOCYTES % (AUTO) 5.7 %; NEUTROPHILS % (AUTO) 91.8 %
[2016-07-21 04:56] LABS: ALBUMIN/GLOBULIN RATIO 0.9 (1.0-2.2); BILIRUBIN,TOTAL 0.3 mg/dL (0.2-1.0); BUN - BLOOD UREA NITROGEN 22 mg/dL (6-20); CALCIUM 7.6 mg/dL (8.5-10.3); CARBON DIOXIDE - CO2 17 mmol/L (21-32); CHLORIDE 116 mmol/L (101-111); CREATININE 1.1 mg/dL (0.4-1.0); GFR - MDRD 47 (>89); GLUCOSE 173 mg/dL (70-100); MAGNESIUM 2.2 mg/dL (1.7-2.8); PHOSPHORUS 2.7 mg/dL (2.5-4.6); POTASSIUM 3.5 mmol/L (3.5-5.0); SODIUM 140 mmol/L (135-145); TOTAL PROTEIN 5.2 g/dL (6.7-8.2)
[2016-07-21 05:09] LABS: CALCIUM, IONIZED 1.16 mmol/L (1.15-1.33); VBG PH 7.243 (7.31-7.41)
[2016-07-21] MEDS: SODIUM CHLORIDE FLUSH 0.9% 10 ML SYRINGE IVP SCH ×3 (05:10→21:24)
[2016-07-21 05:15] LABS: PLATELET ESTIMATE, MANUAL NORMAL (130-450,000) (NORMAL); PLATELET MORPHOLOGY NORMAL APPEARANCE (NORMAL)
--- NOTE | 2016-07-21 05:47 | XRAY Preliminary Report ---
Exam: XR Chest 1 View IMPRESSION: 1. Pulmonary vascular congestion with worsening pulmonary opacities and pleural effusions. [facility] SITE ID: [id number]
--- NOTE | 2016-07-21 05:50 | XRAY Report ---
EXAM: CHEST RADIOGRAPHY EXAM DATE: 07/21/2016 05:41 AM. CLINICAL HISTORY: Short of breath, in ICU. COMPARISON: 07/19/2016. TECHNIQUE: 1 view. FINDINGS: Lungs/Pleura: Pulmonary vascular congestion. Worsening pulmonary edema or infiltrate. Increased bilat eral pleural effusions. No pneumothorax. Mediastinum: Heart size normal to upper normal. Aortic atherosclerosis. Other: Right internal jugular catheter is unchanged. Osteopenia. IMPRESSION: 1. Pulmonary vascular congestion with worsening pulmonary opacities and pleural effusions. [facility] Referring Provider Line: [phone] SITE ID: [id number]
[2016-07-21] MEDS ORDERED: FUROSEMIDE 40 MG/4 ML VIAL IVP STA (05:51)
[2016-07-21] MEDS: POLYETHYLENE GLYCOL 3350 17 GM PACKET PO SCH (08:37)
[2016-07-21] MEDS: FAMOTIDINE 20 MG/50 ML 50 ML IV SCH (08:37)
[2016-07-21] MEDS: AZITHROMYCIN INJ 500 MG in SODIUM CHLORIDE 0.9% 250 ML IV SCH (08:37)
[2016-07-21] MEDS: HEPARIN 5,000 UNIT/ML VIAL SUBQ SCH ×2 (08:38→20:01)
--- NOTE | 2016-07-21 17:19 | PROVIDER PROGRESS NOTE ---
Assessment/Plan - Problem List (1) Septic shock Assessment/Plan: Secondary to pneumonia Blood cx negative On Levophed 4mcg this am On broad spectrum abx Lactate normalized WBC improved slightly down to 24K Bandemia resolved Plan: COntinue IV zosyn and azithromycin Continue levophed Stopped iVFs as patient was overloaded this am (2) Elevated troponin Assessment/Plan: Echo showed normal EF No wall motion abnormalities Trop peaked at 1.46 No chest pain or EKG changes Likely secondary to septic shock Patient will need follow up with PCP after hospitalization Cardiology would not consider any intervention during septic shock (3) Acute kidney injury Assessment/Plan: Secondary to septic shock Learning Facilitator was 1.5 on presentation Improved with IVFs and levophed Learning Facilitator down to 1.1 today (4) CAP (community acquired pneumonia) Assessment/Plan: Likely cause of septic shock Blood cx negative Day 2 of zosyn and azithromycin Continues to be hypoxic Wean O2 - Current Meds Current Meds: Current Medications Generic Name Dose Route Start Last Admin Trade Name Freq PRN Reason Stop Dose Admin Acetaminophen 650 mg 07/20/16 00:52 07/20/16 20:04 Tylenol PO 650 mg Q4HR PRN Administration Pain 1 to 4 Albuterol 2.5 mg 07/20/16 00:52 07/21/16 04:36 INH 2.5 mg Q4HR PRN Administration Wheezing Heparin Sodium (Porcine) 5,000 unit 07/20/16 01:00 07/21/16 08:38 SUBQ 5,000 unit BID MCKAY Administration Hydrocortisone Sodium Succinate 100 mg 07/20/16 06:00 07/21/16 13:11 Solu-Cortef IVP 100 mg Q6HR MCKAY Administration Azithromycin 500 mg/ Sodium 250 mls @ 250 mls/hr 07/20/16 01:00 07/21/16 08:37 Chloride IV 250 mls/hr DAILY MCKAY Administration Famotidine 50 mls @ 100 mls/hr 07/20/16 01:00 07/21/16 08:37 Pepcid 20 Mg/50 Ml IV 100 mls/hr DAILY MCKAY Administration Norepinephrine Bitartrate 8 mg 250 mls @ 15 mls/hr 07/20/16 01:00 07/21/16 15: 51 / Dextrose IV 0 mcg/min .[id number] MCKAY Titration Protocol 8 MCG/MIN Piperacillin Sod/Tazobactam 100 mls @ 25 mls/hr 07/20/16 09:00 07/21/16 08:37 Sod 3.375 gm/ Sodium Chloride IV 25 mls/hr Q8H MCKAY Administration Sodium Chloride 1,000 mls @ 80 mls/hr 07/21/16 04:57 07/21/16 10:52 Normal Saline 0.9% IV 80 mls/hr .[id number] MCKAY Administration Montelukast Sodium 10 mg 07/20/16 21:00 07/20/16 20:03 Singulair PO 10 mg QPM MCKAY Administration Ondansetron HCl 4 mg 07/20/16 00:52 07/20/16 10:27 Zofran Inj IVP 4 mg Q6HR PRN Administration Nausea / Vomiting Polyethylene Glycol 17 gm 07/21/16 09:00 07/21/16 08:37 Miralax PO 17 gm DAILY MCKAY Administration Sodium Chloride 10 ml 07/20/16 00:52 07/20/16 10:29 Normal Saline Flush 0.9% IVP 10 ml PRN PRN Administration NEEDED PER PROVIDER ORDERS Sodium Chloride 10 ml 07/20/16 06:00 07/21/16 13:11 Normal Saline Flush 0.9% IVP 10 ml Q8HR MCKAY Administration - Lab Result Lab results reviewed: Yes Fish Bone Diagrams: 07/21/16 04:12 07/21/16 04:12 - EKG Results EKG Interpreted Independently: Yes - Diagnostic Imaging Results Diagnostic Imaging Results: positive: Final report reviewed - Additional Planning Condition/Complexity: Critical My Orders: My Active Orders 07/21/16 09:00 Polyethylene Glycol 3350 [Miralax] 17 gm PO DAILY 07/22/16 05:00 BNP - B-NATRIURETIC PEPTIDE [IAI] DAILYLAB CBC - COMP BLD CT W/AUTO DIFF [HEME] DAILYLAB CMP, RFLX TO IONIZED CA IF [CHEM] DAILYLAB MAGNESIUM [CHEM] DAILYLAB PHOSPHORUS [CHEM] DAILYLAB 07/23/16 05:00 BNP - B-NATRIURETIC PEPTIDE [IAI] DAILYLAB CBC - COMP BLD CT W/AUTO DIFF [HEME] DAILYLAB CMP, RFLX TO IONIZED CA IF [CHEM] DAILYLAB MAGNESIUM [CHEM] DAILYLAB PHOSPHORUS [CHEM] DAILYLAB 07/24/16 05:00 BNP - B-NATRIURETIC PEPTIDE [IAI] DAILYLAB CBC - COMP BLD CT W/AUTO DIFF [HEME] DAILYLAB CMP, RFLX TO IONIZED CA IF [CHEM] DAILYLAB MAGNESIUM [CHEM] DAILYLAB PHOSPHORUS [CHEM] DAILYLAB 07/25/16 05:00 BNP - B-NATRIURETIC PEPTIDE [IAI] DAILYLAB CBC - COMP BLD CT W/AUTO DIFF [HEME] DAILYLAB CMP, RFLX TO IONIZED CA IF [CHEM] DAILYLAB MAGNESIUM [CHEM] DAILYLAB PHOSPHORUS [CHEM] DAILYLAB Plan Discussed with:: Patient, Family Time Spent: 31-60 minutes Subjective - Subjective Patient Reports: Shortness of Breath (Very short of breath this morning. With coughing and became hypoxic. She improved with IV lasix. Now feeling better. Still very weak. No fevers overnight.) Nursing Reports: No Complaints Objective Vital Signs: Vital Signs - 24 hr 07/20/16 07/20/16 07/20/16 18:00 19:00 19:45 Temperature 36.5 C Heart Rate Heart Rate [ 85 78 79 Monitoring electrodes] Respiratory 24 22 19 Rate Blood Pressure 99/55 L 93/54 L 102/55 L [Right Brachial artery] O2 Saturation 96 99 99 07/20/16 07/20/16 07/20/16 20:49 21:52 22:00 Temperature Heart Rate Heart Rate [ 85 79 78 Monitoring electrodes] Respiratory 23 17 18 Rate Blood Pressure 92/49 L 83/42 L 100/54 L [Right Brachial artery] O2 Saturation 96 96 96 07/20/16 07/21/16 07/21/16 22:53 00:00 00:54 Temperature 36.9 C Heart Rate Heart Rate [ 76 75 76 Monitoring electrodes] Respiratory 19 18 17 Rate Blood Pressure 102/54 L 93/56 L 100/47 L [Right Brachial artery] O2 Saturation 95 96 92 07/21/16 07/21/16 07/21/16 01:58 02:59 03:50 Temperature Heart Rate Heart Rate [ 72 72 71 Monitoring electrodes] Respiratory 17 17 18 Rate Blood Pressure 101/57 L 113/55 L 108/60 [Right Brachial artery] O2 Saturation 95 94 94 07/21/16 07/21/16 07/21/16 04:36 05:00 05:48 Temperature 35.9 C L Heart Rate 91 Heart Rate [ 87 82 Monitoring electrodes] Respiratory 22 20 18 Rate Blood Pressure 102/67 92/50 L [Right Brachial artery] O2 Saturation 97 96 07/21/16 07/21/16 07/21/16 07:00 07:35 08:00 Temperature 36.7 C Heart Rate 85 Heart Rate [ 86 94 Monitoring electrodes] Respiratory 20 18 20 Rate Blood Pressure 111/98 H 112/68 [Right Brachial artery] O2 Saturation 96 96 07/21/16 07/21/16 07/21/16 09:00 10:00 11:00 Temperature Heart Rate Heart Rate [ 91 98 85 Monitoring electrodes] Respiratory 18 24 18 Rate Blood Pressure 103/61 110/78 99/80 [Right Brachial artery] O2 Saturation 97 99 98 07/21/16 07/21/16 07/21/16 12:00 13:00 14:00 Temperature Heart Rate Heart Rate [ 74 93 96 Monitoring electrodes] Respiratory 15 21 30 H Rate Blood Pressure 98/55 L 114/72 160/139 H [Right Brachial artery] O2 Saturation 96 97 85 L 07/21/16 07/21/16 07/21/16 14:41 15:00 15:50 Temperature 36.2 C L Heart Rate Heart Rate [ 92 89 102 H Monitoring electrodes] Respiratory 27 H 22 Rate Blood Pressure 92/58 L 101/71 97/45 L [Right Brachial artery] O2 Saturation 97 94 07/21/16 17:00 Temperature Heart Rate Heart Rate [ 103 H Monitoring electrodes] Respiratory 22 Rate Blood Pressure 86/33 L [Right Brachial artery] O2 Saturation 96 Oxygen O2 Source Nasal cannula I&O (Last 24 Hrs): Intake and Output Totals x24h 07/19/16 07/20/16 07/21/16 23:59 23:59 23:59 Intake Total 4936 3401 Output Total 2082 2811 Balance 2854 590 General: Alert, Oriented x3, Mild distress (short of breath) HEENT: Atraumatic, PERRLA, EOMI, Mucous membr. moist/pink Neck: Supple, No thyromegaly, +2 carotid pulse wo bruit, No LAD Lymphatic: no adenopathy Neuro: Alert, Non Focal, CN 2-12 Grossly Intact, Oriented Times 3 Cardiovascular: Regular rate, Normal S1, Normal S2, No murmurs Respiratory: Chest non-tender, Rales (bibasilar), Rhonchi (bilateral with coarse breath sounds) Abdomen: Normal bowel sounds, Soft, No tenderness, No hepatospenomegaly Extremities: No clubbing, No cyanosis, No edema, Normal pulses Skin: No rashes, No breakdown - Results Results: Laboratory Results WBC 24.0 x10^3/uL (4.8-10.8) H 07/21/16 04:12 RBC 3.00 10^6/uL (4.20-5.40) L 07/21/16 04:12 Hgb 9.4 g/dL (12.0-16.0) L 07/21/16 04:12 Hct 28.6 % (37.0-47.0) L 07/21/16 04:12 MCV 95.2 fL (81.0-99.0) 07/21/16 04:12 MCH 31.3 pg (27.0-31.0) H 07/21/16 04:12 MCHC 32.9 g/dL (32.0-36.0) 07/21/16 04:12 RDW 16.0 % (12.0-15.0) H 07/21/16 04:12 Plt Count 228 10^3/uL (130-450) 07/21/16 04:12 MPV 8.5 fL (7.9-10.8) 07/21/16 04:12 Neut # 22.0 10^3/uL (1.5-6.6) H 07/21/16 04:12 Lymph # 0.6 10^3/uL (1.5-3.5) L 07/21/16 04:12 [place] # 1.4 10^3/uL (0.0-1.0) H 07/21/16 04:12 Eos # 0.0 10^3/uL (0.0-0.7) 07/21/16 04:12 Baso # 0.0 10^3/uL (0.0-0.1) 07/21/16 04:12 Absolute Nucleated RBC 0.00 x10^3/uL 07/21/16 04:12 Total Counted 100 07/20/16 08:54 Band Neuts % (Manual) 44 % (0-10) H 07/20/16 08:54 Metamyelocytes % 4 % (-0) H 07/20/16 08:54 Neutrophils # (Manual) 22.5 10^3/uL (1.5-6.6) H 07/20/16 08:54 Lymphocytes # (Manual) 0.5 10^3/uL (1.5-3.5) L 07/20/16 08:54 Monocytes # (Manual) 1.0 10^3/uL (0.0-1.0) 07/20/16 08:54 Eosinophils # (Manual) 0.2 10^3/uL (0-0.7) 07/19/16 20:50 Basophils # (Manual) 0.1 10^3/uL (0-0.1) 07/19/16 20:50 Nucleated RBCs 0.0 /100WBC 07/21/16 04:12 Differential Comment MANUAL DIFFERENTIAL 07/20/16 08:54 Manual Slide Review Indicated 07/21/16 04:12 WBC Morphology NORMAL APPEARANCE (NORMAL) 07/19/16 20:50 Platelet Estimate NORMAL (130-450,000) (NORMAL) 07/21/16 04:12 Platelet Morphology NORMAL APPEARANCE (NORMAL) 07/21/16 04:12 RBC Morph Micro Appear 1+ ANISOCYTOSIS (NORMAL) 07/21/16 04:12 ESR 29 mm/Hr (0-30) 07/19/16 20:50 VBG pH 7.243 (7.31-7.41) L 07/21/16 04:12 Ionized Calcium 1.16 mmol/L (1.15-1.33) 07/21/16 04:12 Sodium 140 mmol/L (135-145) 07/21/16 04:12 Potassium 3.5 mmol/L (3.5-5.0) 07/21/16 04:12 Chloride 116 mmol/L (101-111) H 07/21/16 04:12 Carbon Dioxide 17 mmol/L (21-32) L 07/21/16 04:12 Anion Gap 7.0 (6-13) 07/21/16 04:12 BUN 22 mg/dL (6-20) H 07/21/16 04:12 Creatinine 1.1 mg/dL (0.4-1.0) H 07/21/16 04:12 Estimated GFR (MDRD) 47 (>89) L 07/21/16 04:12 Glucose 173 mg/dL (70-100) H 07/21/16 04:12 Lactic Acid 1.1 mmol/L (0.5-2.2) 07/20/16 08:54 Calcium 7.6 mg/dL (8.5-10.3) L 07/21/16 04:12 Ionized Calcium YES 07/21/16 04:12 Phosphorus 2.7 mg/dL (2.5-4.6) 07/21/16 04:12 Magnesium 2.2 mg/dL (1.7-2.8) 07/21/16 04:12 Total Bilirubin 0.3 mg/dL (0.2-1.0) 07/21/16 04:12 AST 32 IU/L (10-42) 07/21/16 04:12 ALT 25 IU/L (10-60) 07/21/16 04:12 Alkaline Phosphatase 45 IU/L (42-121) 07/21/16 04:12 Troponin I 1.36 ng/mL (<0.49) H* 07/20/16 14:18 C-Reactive Protein 4.0 mg/dL (0-1.0) H 07/19/16 20:50 B-Natriuretic Peptide 1715 pg/mL (5-100) H 07/21/16 04:12 Total Protein 5.2 g/dL (6.7-8.2) L 07/21/16 04:12 Albumin 2.4 g/dL (3.2-5.5) L 07/21/16 04:12 Globulin 2.8 g/dL (2.1-4.2) 07/21/16 04:12 Albumin/Globulin Ratio 0.9 (1.0-2.2) L 07/21/16 04:12 Lipase 116 U/L (22-51) H 07/19/16 20:50 Urine Color YELLOW 07/19/16 21:53 Urine Clarity CLEAR (CLEAR) 07/19/16 21:53 Urine pH 7.5 PH (5.0-7.5) 07/19/16 21:53 Ur Specific [place] 1.010 (1.002-1.030) 07/19/16 21:53 Urine Protein NEGATIVE mg/dL (NEGATIVE) 07/19/16 21:53 Urine Glucose (UA) NEGATIVE mg/dL (NEGATIVE) 07/19/16 21:53 Urine Ketones NEGATIVE mg/dL (NEGATIVE) 07/19/16 21:53 Urine Occult Blood NEGATIVE (NEGATIVE) 07/19/16 21:53 Urine Nitrite NEGATIVE (NEGATIVE) 07/19/16 21:53 Urine Bilirubin NEGATIVE (NEGATIVE) 07/19/16 21:53 Urine Urobilinogen 0.2 (NORMAL) E.U./dL (NORMAL) 07/19/16 21:53 Ur Leukocyte Esterase NEGATIVE (NEGATIVE) 07/19/16 21:53 Ur Microscopic Review NOT INDICATED 07/19/16 21:53 Urine Culture Comments NOT INDICATED 07/19/16 21:53 - Procedures Procedures: Procedures CATARAC PHACOEMULS/ASPIR (03/20/14) ESOPHAGOGASTRODUODENOSCOPY [EGD] W/CLOSED BIOPSY (11/08/13) INSERT LENS AT CATAR EXT (03/20/14)
[2016-07-21] MEDS ORDERED: FUROSEMIDE 40 MG/4 ML VIAL IVP SCH (17:30)
[2016-07-21] MEDS: ACETAMINOPHEN 325 MG TABLET PO PRN (19:51)
[2016-07-21] MEDS: MONTELUKAST 10 MG TABLET PO SCH (20:01)
[2016-07-22] MEDS: HYDROCORTISONE SUCCINATE 100 MG/2 ML VIAL IVP SCH ×2 (00:19→05:13)
[2016-07-22] MEDS: PIPERACILLIN/TAZOBACTAM 3.375 GM in SODIUM CHLORIDE 0.9% MINIBAG 100 ML IV SCH (00:55)
[2016-07-22 03:47] LABS: BASOPHILS % (AUTO) 0.1 %; HCT - HEMATOCRIT 26.6 % (37.0-47.0); HGB - HEMOGLOBIN 8.8 g/dL (12.0-16.0); LYMPHOCYTES # (AUTO) 0.5 10^3/uL (1.5-3.5); LYMPHOCYTES % (AUTO) 2.6 %; MEAN CORPUSCULAR HEMOGLOBIN 31.1 pg (27.0-31.0); MEAN CORPUSCULAR HGB CONC 33.2 g/dL (32.0-36.0); MEAN CORPUSCULAR VOLUME 93.7 fL (81.0-99.0); MEAN PLATELET VOLUME 8.4 fL (7.9-10.8); MONOCYTES # (AUTO) 0.9 10^3/uL (0.0-1.0); MONOCYTES % (AUTO) 4.7 %; NEUTROPHILS # (AUTO) 18.2 10^3/uL (1.5-6.6); NEUTROPHILS % (AUTO) 92.6 %; NUCLEATED RED BLOOD CELLS AUTO 0.1 /100WBC; RED BLOOD COUNT 2.84 10^6/uL (4.20-5.40); RED CELL DISTRIBUTION WIDTH 15.1 % (12.0-15.0); UNCORRECTED WHITE BLOOD COUNT 19.6 x10^3/uL; WHITE BLOOD COUNT 19.6 x10^3/uL (4.8-10.8)
[2016-07-22 04:01] LABS: ALBUMIN/GLOBULIN RATIO 0.9 (1.0-2.2); BILIRUBIN,TOTAL 0.3 mg/dL (0.2-1.0); BUN - BLOOD UREA NITROGEN 30 mg/dL (6-20); CARBON DIOXIDE - CO2 22 mmol/L (21-32); CHLORIDE 112 mmol/L (101-111); CREATININE 1.5 mg/dL (0.4-1.0); GFR - MDRD 33 (>89); GLUCOSE 127 mg/dL (70-100); MAGNESIUM 1.9 mg/dL (1.7-2.8); PHOSPHORUS 3.1 mg/dL (2.5-4.6); POTASSIUM 2.6 mmol/L (3.5-5.0); SODIUM 144 mmol/L (135-145); TOTAL PROTEIN 5.3 g/dL (6.7-8.2)
[2016-07-22 04:06] LABS: CALCIUM, IONIZED 1.11 mmol/L (1.15-1.33); VBG PH 7.375 (7.31-7.41)
[2016-07-22] MEDS: SODIUM CHLORIDE FLUSH 0.9% 10 ML SYRINGE IVP SCH ×2 (05:13→16:04)
[2016-07-22] MEDS: POTASSIUM CHLOR 20 MEQ/100 ML 100 ML IV SCH ×4 (05:13→09:48)
[2016-07-22] MEDS: AZITHROMYCIN INJ 500 MG in SODIUM CHLORIDE 0.9% 250 ML IV SCH (08:42)
[2016-07-22] MEDS: HEPARIN 5,000 UNIT/ML VIAL SUBQ SCH ×2 (08:43→21:24)
[2016-07-22] MEDS: FAMOTIDINE 20 MG/50 ML 50 ML IV SCH (08:43)
[2016-07-22] MEDS: POLYETHYLENE GLYCOL 3350 17 GM PACKET PO SCH (08:45)
[2016-07-22] MEDS ORDERED: SODIUM CHLORIDE 0.9% 1,000 ML IV SCH (09:00)
[2016-07-22] MEDS ORDERED: CALCIUM GLUCONATE 1,000 MG in SODIUM CHLORIDE 0.9% 50 ML IV ONE (09:00)
[2016-07-22] MEDS ORDERED: FUROSEMIDE 40 MG/4 ML VIAL IVP SCH (09:39)
[2016-07-22] MEDS ORDERED: IPRATROPIUM/ALBUTEROL 3 ML NEB INH PRN (09:41)
[2016-07-22] MEDS ORDERED: IPRATROPIUM/ALBUTEROL 3 ML NEB INH SCH (09:41)
[2016-07-22 09:42] LABS: IRON 10 ug/dL (28-170); TOTAL IRON BINDING CAPACITY 262 ug/dL (250-450); TRANSFERRIN 187 mg/dL (192-382)
[2016-07-22 09:53] LABS: FERRITIN 63.1 ng/mL (11.0-306.8)
[2016-07-22] MEDS: CEFEPIME 2 GM in SODIUM CHLORIDE 0.9% MINIBAG 100 ML IV SCH (09:55)
[2016-07-22 09:57] LABS: FOLATE 20.52 ng/mL (5.90 - >24.8)
[2016-07-22] MEDS: POTASSIUM CHLORIDE 20 MEQ TABLET PO SCH (16:11)
[2016-07-22] MEDS: MONTELUKAST 10 MG TABLET PO SCH (21:24)
[2016-07-22] MEDS ORDERED: diphenhydrAMINE 25 MG CAPSULE PO PRN (21:35)
[2016-07-22] MEDS ORDERED: POTASSIUM CHLORIDE 20 MEQ TABLET PO ONE (21:37)
[2016-07-23] MEDS: POTASSIUM CHLORIDE 20 MEQ TABLET PO SCH ×3 (00:38→08:55)
[2016-07-23] MEDS: SODIUM CHLORIDE FLUSH 0.9% 10 ML SYRINGE IVP PRN (03:20)
[2016-07-23 03:45] LABS: BASOPHILS % (AUTO) 0.3 %; EOSINOPHILS % (AUTO) 0.7 %; HCT - HEMATOCRIT 27.2 % (37.0-47.0); LYMPHOCYTES % (AUTO) 10.1 %; MEAN CORPUSCULAR HEMOGLOBIN 30.7 pg (27.0-31.0); MEAN CORPUSCULAR HGB CONC 33.1 g/dL (32.0-36.0); MEAN CORPUSCULAR VOLUME 92.8 fL (81.0-99.0); MEAN PLATELET VOLUME 8.1 fL (7.9-10.8); MONOCYTES % (AUTO) 6.8 %; NEUTROPHILS % (AUTO) 82.1 %; RED BLOOD COUNT 2.93 10^6/uL (4.20-5.40); RED CELL DISTRIBUTION WIDTH 15.2 % (12.0-15.0); UNCORRECTED WHITE BLOOD COUNT 18.2 x10^3/uL; WHITE BLOOD COUNT 18.2 x10^3/uL (4.8-10.8)
[2016-07-23 03:51] LABS: ALBUMIN/GLOBULIN RATIO 0.8 (1.0-2.2); BILIRUBIN,TOTAL 0.2 mg/dL (0.2-1.0); BUN - BLOOD UREA NITROGEN 32 mg/dL (6-20); CALCIUM 8.3 mg/dL (8.5-10.3); CARBON DIOXIDE - CO2 23 mmol/L (21-32); CHLORIDE 110 mmol/L (101-111); CREATININE 1.3 mg/dL (0.4-1.0); GFR - MDRD 39 (>89); GLUCOSE 87 mg/dL (70-100); MAGNESIUM 1.8 mg/dL (1.7-2.8); PHOSPHORUS 1.6 mg/dL (2.5-4.6); POTASSIUM 2.7 mmol/L (3.5-5.0); SODIUM 142 mmol/L (135-145); TOTAL PROTEIN 5.6 g/dL (6.7-8.2)
[2016-07-23 03:57] LABS: CALCIUM, IONIZED 1.17 mmol/L (1.15-1.33); VBG PH 7.432 (7.31-7.41)
[2016-07-23 04:29] LABS: BAND NEUTROPHILS % (MANUAL) 7 %; LYMPHOCYTES % (MANUAL) 23 %; NEUTROPHILS % (MANUAL) 61 %; TOTAL CELLS COUNTED 100
[2016-07-23 04:30] LABS: NP AUTO DIFFERENTIAL? YES; NP MAN DIFFERENTIAL? NO; PLATELET ESTIMATE, MANUAL NORMAL (130-450,000) (NORMAL)
[2016-07-23] MEDS: NEUTRA-PHOS 250 MG TABLET PO SCH ×2 (05:06→09:02)
[2016-07-23] MEDS: SODIUM CHLORIDE FLUSH 0.9% 10 ML SYRINGE IVP SCH ×3 (06:58→13:50)
[2016-07-23] MEDS: predniSONE 20 MG TABLET PO SCH (08:54)
[2016-07-23] MEDS: ASPIRIN 325 MG TABLET PO SCH (08:54)
[2016-07-23] MEDS: AZITHROMYCIN INJ 500 MG in SODIUM CHLORIDE 0.9% 250 ML IV SCH (08:54)
[2016-07-23] MEDS: FAMOTIDINE 20 MG/50 ML 50 ML IV SCH (08:55)
[2016-07-23] MEDS: HEPARIN 5,000 UNIT/ML VIAL SUBQ SCH (08:55)
[2016-07-23] MEDS: POLYETHYLENE GLYCOL 3350 17 GM PACKET PO SCH (09:02)
[2016-07-23] MEDS: CEFEPIME 2 GM in SODIUM CHLORIDE 0.9% MINIBAG 100 ML IV SCH (10:43)
--- NOTE | 2016-07-23 17:03 | PROVIDER PROGRESS NOTE ---
Assessment/Plan - Problem List (1) Septic shock Assessment/Plan: Secondary to pneumonia Blood cx negative Off levophed this morning On broad spectrum abx change to cefepime and azithro secondary to renal failure and worsening SOA Lactate normalized WBC improved slightly down to 19.6 from 25 Bandemia resolved COntinue IV cefepime and azithromycin Monitor in ICU for one more day as patient still has borderline BP and very short of breath (2) Elevated troponin Assessment/Plan: Echo showed normal EF, moderate tricuspid regurgitation and RVSP of 52 mmHg No wall motion abnormalities Trop peaked at 1.46 No chest pain or EKG changes Likely secondary to septic shock Patient will need follow up with PCP after hospitalization Cardiology would not consider any intervention during septic shock (3) Acute kidney injury Assessment/Plan: Secondary to septic shock Assistant Manager/Embalmer was 1.5 on presentation Improved with IVFs and levophed But back up to 1.5 this am Concern that it is because of zosyn will stop zosyn Patient does not appear volume depleted will continue lasix maybe cardiorenal (4) CAP (community acquired pneumonia) Assessment/Plan: Likely cause of septic shock Blood cx negative 2 days of zosyn and azithromycin will change to cefepime Continues to be hypoxic and had acute worsening this morning associated with fluid overload Wean O2 (5) Fluid Overload Assessment/Plan: Patient has had orthopnea and several episodes of crackles and acute shortness of breath Given lasix yesterday Will give lasix again this morning as patient again short of breath with crackles Echo showed normal EF but patient does have moderate tricuspid regurg and elevated RVSP - Current Meds Current Meds: Current Medications Generic Name Dose Route Start Last Admin Trade Name Gómezq PRN Reason Stop Dose Admin Acetaminophen 650 mg 07/20/16 00:52 07/21/16 19:51 Tylenol PO 650 mg Q4HR PRN Administration Pain 1 to 4 Albuterol 2.5 mg 07/20/16 00:52 07/21/16 04:36 INH 2.5 mg Q4HR PRN Administration Wheezing Albuterol/Ipratropium 3 ml 07/22/16 09:41 07/23/16 05:15 Duoneb INH 3 ml RTQID PRN Administration Shortness of Air/Wheezing Aspirin 325 mg 07/23/16 08:00 07/23/16 08:54 Michael PO 325 mg DAILYWM MCKAY Administration Diphenhydramine HCl 25 mg 07/22/16 21:35 07/22/16 21:41 Benadryl PO 25 mg QPM PRN Administration Insomnia Heparin Sodium (Porcine) 5,000 unit 07/20/16 01:00 07/23/16 08:55 SUBQ 5,000 unit BID MCKAY Administration Hydromorphone HCl 0.5 mg 07/20/16 00:52 07/23/16 03:30 Dilaudid Inj IVP 0.5 mg Q2HR PRN Administration Pain 8 to 10 Azithromycin 500 mg/ Sodium 250 mls @ 250 mls/hr 07/20/16 01:00 07/23/16 08:54 Chloride IV 250 mls/hr DAILY MCKAY Administration Famotidine 50 mls @ 100 mls/hr 07/20/16 01:00 07/23/16 08:55 Pepcid 20 Mg/50 Ml IV 100 mls/hr DAILY MCKAY Administration Norepinephrine Bitartrate 8 mg 250 mls @ 15 mls/hr 07/20/16 01:00 07/23/16 05: 01 / Dextrose IV Not Given .[id number] MCKAY Protocol 8 MCG/MIN Cefepime HCl 2 gm/ Sodium 100 mls @ 200 mls/hr 07/22/16 10:00 07/23/16 10:43 Chloride IV 200 mls/hr Q24H MCKAY Administration Montelukast Sodium 10 mg 07/20/16 21:00 07/22/16 21:24 Singulair PO 10 mg QPM MCKAY Administration Ondansetron HCl 4 mg 07/20/16 00:52 07/20/16 10:27 Zofran Inj IVP 4 mg Q6HR PRN Administration Nausea / Vomiting Polyethylene Glycol 17 gm 07/21/16 09:00 07/23/16 09:02 Miralax PO Not Given DAILY MCKAY Prednisone 20 mg 07/23/16 08:00 07/23/16 08:54 Deltasone PO 20 mg DAILYWM MCKAY Administration Sodium Chloride 10 ml 07/20/16 00:52 07/23/16 03:20 Normal Saline Flush 0.9% IVP 20 ml PRN PRN Administration NEEDED PER PROVIDER ORDERS Sodium Chloride 10 ml 07/20/16 06:00 07/23/16 13:50 Normal Saline Flush 0.9% IVP 10 ml Q8HR MCKAY Administration - Lab Result Lab results reviewed: Yes Fish Bone Diagrams: 07/23/16 03:15 07/23/16 03:15 - EKG Results EKG Interpreted Independently: Yes - Diagnostic Imaging Results Diagnostic Imaging Results: positive: Final report reviewed - Additional Planning Condition/Complexity: Guarded My Orders: My Active Orders 07/23/16 Evaluate and Treat PT [PT] Routine 07/23/16 08:00 Aspirin [Michael] 325 mg PO DAILYWM predniSONE [Deltasone] 20 mg PO DAILYWM 07/23/16 14:58 Admit [Admit \ Transfer \ Status] [RC] ONCE IO [RC] IOSHIFT Vital Signs [RC] Q4HR 07/24/16 05:00 BNP - B-NATRIURETIC PEPTIDE [IAI] DAILYLAB CBC - COMP BLD CT W/AUTO DIFF [HEME] DAILYLAB CMP, RFLX TO IONIZED CA IF [CHEM] DAILYLAB MAGNESIUM [CHEM] DAILYLAB PHOSPHORUS [CHEM] DAILYLAB 07/25/16 05:00 BNP - B-NATRIURETIC PEPTIDE [IAI] DAILYLAB CBC - COMP BLD CT W/AUTO DIFF [HEME] DAILYLAB CMP, RFLX TO IONIZED CA IF [CHEM] DAILYLAB MAGNESIUM [CHEM] DAILYLAB PHOSPHORUS [CHEM] DAILYLAB Plan Discussed with:: Patient, Family Time Spent: 31-60 minutes Subjective - Subjective Patient Reports: Shortness of Breath (Patient is very anxious and short of breath this am. She has audible crackles. No chest pain, no fevers.) Nursing Reports: No Complaints Objective Vital Signs: Vital Signs - 24 hr 07/22/16 07/22/16 07/22/16 17:00 18:00 18:55 Temperature Heart Rate 85 Heart Rate [ 92 93 Monitoring electrodes] Respiratory 20 22 18 Rate Blood Pressure 141/67 H 151/56 H [Left Ankle] Blood Pressure [Right Brachial artery] O2 Saturation 95 99 07/22/16 07/22/16 07/22/16 18:58 20:00 21:00 Temperature 37.1 C Heart Rate Heart Rate [ 85 85 85 Monitoring electrodes] Respiratory 16 19 20 Rate Blood Pressure 148/60 H 150/57 H 150/72 H [Left Ankle] Blood Pressure [Right Brachial artery] O2 Saturation 97 97 97 07/22/16 07/22/16 07/23/16 22:00 23:00 00:00 Temperature 37.0 C Heart Rate Heart Rate [ 81 73 72 Monitoring electrodes] Respiratory 16 18 21 Rate Blood Pressure 125/62 118/57 L 127/51 L [Left Ankle] Blood Pressure [Right Brachial artery] O2 Saturation 96 95 96 07/23/16 07/23/16 07/23/16 01:00 02:00 03:00 Temperature Heart Rate Heart Rate [ 72 81 81 Monitoring electrodes] Respiratory 20 17 20 Rate Blood Pressure 119/57 L 115/56 L 136/65 H [Left Ankle] Blood Pressure [Right Brachial artery] O2 Saturation 95 94 97 07/23/16 07/23/16 07/23/16 04:00 05:00 05:15 Temperature 36.7 C Heart Rate 73 Heart Rate [ 71 84 Monitoring electrodes] Respiratory 16 20 16 Rate Blood Pressure 101/49 L 86/44 L [Left Ankle] Blood Pressure [Right Brachial artery] O2 Saturation 95 97 07/23/16 07/23/16 07/23/16 06:00 07:00 08:00 Temperature 98.6 C H Heart Rate Heart Rate [ 80 88 96 Monitoring electrodes] Respiratory 16 21 22 Rate Blood Pressure 107/57 L [Left Ankle] Blood Pressure 90/45 L 100/49 L [Right Brachial artery] O2 Saturation 93 95 98 07/23/16 07/23/16 07/23/16 09:00 10:00 11:00 Temperature Heart Rate Heart Rate [ 89 93 88 Monitoring electrodes] Respiratory 21 20 21 Rate Blood Pressure 116/57 L [Left Ankle] Blood Pressure 116/66 134/71 H [Right Brachial artery] O2 Saturation 96 98 96 07/23/16 07/23/16 07/23/16 12:00 12:55 14:00 Temperature 97.7 C H Heart Rate Heart Rate [ 92 80 Monitoring electrodes] Respiratory 22 19 80 H Rate Blood Pressure [Left Ankle] Blood Pressure 118/74 117/53 L 122/67 [Right Brachial artery] O2 Saturation 94 97 97 Oxygen O2 Source Nasal cannula I&O (Last 24 Hrs): Intake and Output Totals x24h 07/21/16 07/22/16 07/23/16 23:59 23:59 23:59 Intake Total 4391 2595 1680 Output Total 5666 4603 6586 Balance -1275 -2030 324 General: Alert, Oriented x3, Cooperative, Moderate distress (anxious and dyspneic) HEENT: Atraumatic, PERRLA, EOMI, Mucous membr. moist/pink Neck: Supple, No JVD, No thyromegaly, +2 carotid pulse wo bruit, No LAD Lymphatic: no adenopathy Neuro: Alert, Non Focal, CN 2-12 Grossly Intact, Oriented Times 3 Cardiovascular: Regular rate, Normal S1, Normal S2, No murmurs Respiratory: Chest non-tender, Rales (bilateral half way up lungs), Other ( respiratory distress) Abdomen: Normal bowel sounds, Soft, No tenderness, No hepatospenomegaly, No masses Extremities: No clubbing, No cyanosis, No edema, Normal pulses Skin: No rashes, No breakdown - Results Results: Laboratory Results WBC 18.2 x10^3/uL (4.8-10.8) H 07/23/16 03:15 RBC 2.93 10^6/uL (4.20-5.40) L 07/23/16 03:15 Hgb 9.0 g/dL (12.0-16.0) L 07/23/16 03:15 Hct 27.2 % (37.0-47.0) L 07/23/16 03:15 MCV 92.8 fL (81.0-99.0) 07/23/16 03:15 MCH 30.7 pg (27.0-31.0) 07/23/16 03:15 MCHC 33.1 g/dL (32.0-36.0) 07/23/16 03:15 RDW 15.2 % (12.0-15.0) H 07/23/16 03:15 Plt Count 274 10^3/uL (130-450) 07/23/16 03:15 MPV 8.1 fL (7.9-10.8) 07/23/16 03:15 Neut # Not Reportable 07/23/16 03:15 Lymph # Not Reportable 07/23/16 03:15 [place] # Not Reportable 07/23/16 03:15 Eos # Not Reportable 07/23/16 03:15 Baso # Not Reportable 07/23/16 03:15 Absolute Nucleated RBC Not Reportable 07/23/16 03:15 Total Counted 100 07/23/16 03:15 Band Neuts % (Manual) 7 % (0-10) 07/23/16 03:15 Metamyelocytes % 4 % (-0) H 07/20/16 08:54 Neutrophils # (Manual) 12.4 10^3/uL (1.5-6.6) H 07/23/16 03:15 Lymphocytes # (Manual) 4.2 10^3/uL (1.5-3.5) H 07/23/16 03:15 Monocytes # (Manual) 1.6 10^3/uL (0.0-1.0) H 07/23/16 03:15 Eosinophils # (Manual) 0.2 10^3/uL (0-0.7) 07/19/16 20:50 Basophils # (Manual) 0.1 10^3/uL (0-0.1) 07/19/16 20:50 Nucleated RBCs Not Reportable 07/23/16 03:15 Differential Comment MANUAL DIFFERENTIAL 07/23/16 03:15 Manual Slide Review Indicated 07/21/16 04:12 WBC Morphology NORMAL APPEARANCE (NORMAL) 07/19/16 20:50 Platelet Estimate NORMAL (130-450,000) (NORMAL) 07/23/16 03:15 Platelet Morphology NORMAL APPEARANCE (NORMAL) 07/21/16 04:12 RBC Morph Micro Appear NORMAL APPEARANCE (NORMAL) 07/23/16 03:15 ESR 29 mm/Hr (0-30) 07/19/16 20:50 VBG pH 7.432 (7.31-7.41) H 07/23/16 03:15 Ionized Calcium 1.17 mmol/L (1.15-1.33) 07/23/16 03:15 Sodium 142 mmol/L (135-145) 07/23/16 03:15 Potassium 2.7 mmol/L (3.5-5.0) L 07/23/16 03:15 Chloride 110 mmol/L (101-111) 07/23/16 03:15 Carbon Dioxide 23 mmol/L (21-32) 07/23/16 03:15 Anion Gap 9.0 (6-13) 07/23/16 03:15 BUN 32 mg/dL (6-20) H 07/23/16 03:15 Creatinine 1.3 mg/dL (0.4-1.0) H 07/23/16 03:15 Estimated GFR (MDRD) 39 (>89) L 07/23/16 03:15 Glucose 87 mg/dL (70-100) 07/23/16 03:15 Lactic Acid 1.1 mmol/L (0.5-2.2) 07/20/16 08:54 Calcium 8.3 mg/dL (8.5-10.3) L 07/23/16 03:15 Ionized Calcium YES 07/23/16 03:15 Phosphorus 1.6 mg/dL (2.5-4.6) L 07/23/16 03:15 Magnesium 1.8 mg/dL (1.7-2.8) 07/23/16 03:15 Iron 10 ug/dL (28-170) L 07/22/16 08:50 TIBC 262 ug/dL (250-450) 07/22/16 08:50 % Saturation 4 % (20-50) L 07/22/16 08:50 Transferrin 187 mg/dL (192-382) L 07/22/16 08:50 Ferritin 63.1 ng/mL (11.0-306.8) 07/22/16 08:50 Total Bilirubin 0.2 mg/dL (0.2-1.0) 07/23/16 03:15 AST 20 IU/L (10-42) 07/23/16 03:15 ALT 22 IU/L (10-60) 07/23/16 03:15 Alkaline Phosphatase 53 IU/L (42-121) 07/23/16 03:15 Troponin I 1.36 ng/mL (<0.49) H* 07/20/16 14:18 C-Reactive Protein 4.0 mg/dL (0-1.0) H 07/19/16 20:50 B-Natriuretic Peptide 1182 pg/mL (5-100) H 07/23/16 03:15 Total Protein 5.6 g/dL (6.7-8.2) L 07/23/16 03:15 Albumin 2.5 g/dL (3.2-5.5) L 07/23/16 03:15 Globulin 3.1 g/dL (2.1-4.2) 07/23/16 03:15 Albumin/Globulin Ratio 0.8 (1.0-2.2) L 07/23/16 03:15 Lipase 116 U/L (22-51) H 07/19/16 20:50 Vitamin B12 1375 pg/mL (180-914) H 07/22/16 08:50 Folate 20.52 ng/mL (5.90 - >24.8) 07/22/16 08:50 Urine Color YELLOW 07/19/16 21:53 Urine Clarity CLEAR (CLEAR) 07/19/16 21:53 Urine pH 7.5 PH (5.0-7.5) 07/19/16 21:53 Ur Specific [place] 1.010 (1.002-1.030) 07/19/16 21:53 Urine Protein NEGATIVE mg/dL (NEGATIVE) 07/19/16 21:53 Urine Glucose (UA) NEGATIVE mg/dL (NEGATIVE) 07/19/16 21:53 Urine Ketones NEGATIVE mg/dL (NEGATIVE) 07/19/16 21:53 Urine Occult Blood NEGATIVE (NEGATIVE) 07/19/16 21:53 Urine Nitrite NEGATIVE (NEGATIVE) 07/19/16 21:53 Urine Bilirubin NEGATIVE (NEGATIVE) 07/19/16 21:53 Urine Urobilinogen 0.2 (NORMAL) E.U./dL (NORMAL) 07/19/16 21:53 Ur Leukocyte Esterase NEGATIVE (NEGATIVE) 07/19/16 21:53 Ur Microscopic Review NOT INDICATED 07/19/16 21:53 Urine Culture Comments NOT INDICATED 07/19/16 21:53 - Procedures Procedures: Procedures CATARAC PHACOEMULS/ASPIR (03/20/14) ESOPHAGOGASTRODUODENOSCOPY [EGD] W/CLOSED BIOPSY (11/08/13) INSERT LENS AT CATAR EXT (03/20/14)
--- NOTE | 2016-07-23 17:10 | PROVIDER PROGRESS NOTE ---
Assessment/Plan - Problem List (1) Septic shock Assessment/Plan: Secondary to pneumonia Blood cx negative Off levophed this morning On broad spectrum abx cefepime and azithro Lactate normalized WBC improved slightly down to 18.2 from 25 Bandemia resolved COntinue IV cefepime and azithromycin Resolved will transfer to Med/Surg today (2) Elevated troponin Assessment/Plan: Echo showed normal EF, moderate tricuspid regurgitation and RVSP of 52 mmHg No wall motion abnormalities Trop peaked at 1.46 No chest pain or EKG changes Likely secondary to septic shock Patient will need follow up with PCP after hospitalization Cardiology would not consider any intervention during septic shock Will need outpatient follow up No chest pain (3) Acute kidney injury Assessment/Plan: Secondary to septic shock Med Spa Manager was 1.5 on presentation Improved with IVFs and levophed Then went back up to 1.5 yesterday thought to be secondary to zosyn and fluid overload Improved today down to 1.3 will continue to monitor Avoid nephrotoxic agents (4) CAP (community acquired pneumonia) Assessment/Plan: Likely cause of septic shock Blood cx negative 2 days of zosyn and azithromycin, day 2 of cefepime and azithro Patient improving, less short of air today Up in chair today 2L O2 will wean (5) Fluid Overload Assessment/Plan: Improving, mild basilar crackles but breathing is much improved Will give lasix again this morning as patient again short of breath with crackles Echo showed normal EF but patient does have moderate tricuspid regurg and elevated RVSP Patient will need PT eval over the weekend and then may need placement but needs at least 1-2 more days of IV abx prior to discharge would like to see WBC closer to normal range - Current Meds Current Meds: Current Medications Generic Name Dose Route Start Last Admin Trade Name Freq PRN Reason Stop Dose Admin Acetaminophen 650 mg 07/20/16 00:52 07/21/16 19:51 Tylenol PO 650 mg Q4HR PRN Administration Pain 1 to 4 Albuterol 2.5 mg 07/20/16 00:52 07/21/16 04:36 INH 2.5 mg Q4HR PRN Administration Wheezing Albuterol/Ipratropium 3 ml 07/22/16 09:41 07/23/16 05:15 Duoneb INH 3 ml RTQID PRN Administration Shortness of Air/Wheezing Aspirin 325 mg 07/23/16 08:00 07/23/16 08:54 Michael PO 325 mg DAILYWM MCKAY Administration Diphenhydramine HCl 25 mg 07/22/16 21:35 07/22/16 21:41 Benadryl PO 25 mg QPM PRN Administration Insomnia Heparin Sodium (Porcine) 5,000 unit 07/20/16 01:00 07/23/16 08:55 SUBQ 5,000 unit BID MCKAY Administration Hydromorphone HCl 0.5 mg 07/20/16 00:52 07/23/16 03:30 Dilaudid Inj IVP 0.5 mg Q2HR PRN Administration Pain 8 to 10 Azithromycin 500 mg/ Sodium 250 mls @ 250 mls/hr 07/20/16 01:00 07/23/16 08:54 Chloride IV 250 mls/hr DAILY MCKAY Administration Famotidine 50 mls @ 100 mls/hr 07/20/16 01:00 07/23/16 08:55 Pepcid 20 Mg/50 Ml IV 100 mls/hr DAILY MCKAY Administration Norepinephrine Bitartrate 8 mg 250 mls @ 15 mls/hr 07/20/16 01:00 07/23/16 05: 01 / Dextrose IV Not Given .[id number] MCKAY Protocol 8 MCG/MIN Cefepime HCl 2 gm/ Sodium 100 mls @ 200 mls/hr 07/22/16 10:00 07/23/16 10:43 Chloride IV 200 mls/hr Q24H MCKAY Administration Montelukast Sodium 10 mg 07/20/16 21:00 07/22/16 21:24 Singulair PO 10 mg QPM MCKAY Administration Ondansetron HCl 4 mg 07/20/16 00:52 07/20/16 10:27 Zofran Inj IVP 4 mg Q6HR PRN Administration Nausea / Vomiting Polyethylene Glycol 17 gm 07/21/16 09:00 07/23/16 09:02 Miralax PO Not Given DAILY MCKAY Prednisone 20 mg 07/23/16 08:00 07/23/16 08:54 Deltasone PO 20 mg DAILYWM MCKAY Administration Sodium Chloride 10 ml 07/20/16 00:52 07/23/16 03:20 Normal Saline Flush 0.9% IVP 20 ml PRN PRN Administration NEEDED PER PROVIDER ORDERS Sodium Chloride 10 ml 07/20/16 06:00 07/23/16 13:50 Normal Saline Flush 0.9% IVP 10 ml Q8HR MCKAY Administration - Lab Result Lab results reviewed: Yes Fish Bone Diagrams: 07/23/16 03:15 07/23/16 03:15 - EKG Results EKG Interpreted Independently: Yes - Diagnostic Imaging Results Diagnostic Imaging Results: positive: Final report reviewed - Additional Planning Condition/Complexity: Improved My Orders: My Active Orders 07/23/16 Evaluate and Treat PT [PT] Routine 07/23/16 08:00 Aspirin [Michael] 325 mg PO DAILYWM predniSONE [Deltasone] 20 mg PO DAILYWM 07/23/16 14:58 Admit [Admit \ Transfer \ Status] [RC] ONCE IO [RC] IOSHIFT Vital Signs [RC] Q4HR 07/24/16 05:00 BNP - B-NATRIURETIC PEPTIDE [IAI] DAILYLAB CBC - COMP BLD CT W/AUTO DIFF [HEME] DAILYLAB CMP, RFLX TO IONIZED CA IF [CHEM] DAILYLAB MAGNESIUM [CHEM] DAILYLAB PHOSPHORUS [CHEM] DAILYLAB 07/25/16 05:00 BNP - B-NATRIURETIC PEPTIDE [IAI] DAILYLAB CBC - COMP BLD CT W/AUTO DIFF [HEME] DAILYLAB CMP, RFLX TO IONIZED CA IF [CHEM] DAILYLAB MAGNESIUM [CHEM] DAILYLAB PHOSPHORUS [CHEM] DAILYLAB Consult/Specialty: PT Time Spent: 31-60 minutes Subjective - Subjective Patient Reports: Feeling Better (Patient up in chair this morning. She feels better. She states her shortness of breath is improving. No chest pain, no fevers.) Nursing Reports: No Complaints Objective Vital Signs: Vital Signs - 24 hr 07/22/16 07/22/16 07/22/16 18:00 18:55 18:58 Temperature Heart Rate 85 Heart Rate [ 93 85 Monitoring electrodes] Respiratory 22 18 16 Rate Blood Pressure 151/56 H 148/60 H [Left Ankle] Blood Pressure [Right Brachial artery] O2 Saturation 99 97 07/22/16 07/22/16 07/22/16 20:00 21:00 22:00 Temperature 37.1 C Heart Rate Heart Rate [ 85 85 81 Monitoring electrodes] Respiratory 19 20 16 Rate Blood Pressure 150/57 H 150/72 H 125/62 [Left Ankle] Blood Pressure [Right Brachial artery] O2 Saturation 97 97 96 07/22/16 07/23/1617 23:00 00:00 01:00 Temperature 37.0 C Heart Rate Heart Rate [ 73 72 72 Monitoring electrodes] Respiratory 18 21 20 Rate Blood Pressure 118/57 L 127/51 L 119/57 L [Left Ankle] Blood Pressure [Right Brachial artery] O2 Saturation 95 96 95 07/23/16 07/23/16 07/23/16 02:00 03:00 04:00 Temperature 36.7 C Heart Rate Heart Rate [ 81 81 71 Monitoring electrodes] Respiratory 17 20 16 Rate Blood Pressure 115/56 L 136/65 H 101/49 L [Left Ankle] Blood Pressure [Right Brachial artery] O2 Saturation 94 97 95 07/23/16 07/23/16 07/23/16 05:00 05:15 06:00 Temperature Heart Rate 73 Heart Rate [ 84 80 Monitoring electrodes] Respiratory 20 16 16 Rate Blood Pressure 86/44 L 107/57 L [Left Ankle] Blood Pressure [Right Brachial artery] O2 Saturation 97 93 07/23/16 07/23/16 07/23/16 07:00 08:00 09:00 Temperature 98.6 C H Heart Rate Heart Rate [ 88 96 89 Monitoring electrodes] Respiratory 21 22 21 Rate Blood Pressure [Left Ankle] Blood Pressure 90/45 L 100/49 L 116/66 [Right Brachial artery] O2 Saturation 95 98 96 07/23/16 07/23/16 07/23/16 10:00 11:00 12:00 Temperature 97.7 C H Heart Rate Heart Rate [ 93 88 92 Monitoring electrodes] Respiratory 20 21 22 Rate Blood Pressure 116/57 L [Left Ankle] Blood Pressure 134/71 H 118/74 [Right Brachial artery] O2 Saturation 98 96 94 07/23/16 07/23/16 12:55 14:00 Temperature Heart Rate Heart Rate [ 80 Monitoring electrodes] Respiratory 19 80 H Rate Blood Pressure [Left Ankle] Blood Pressure 117/53 L 122/67 [Right Brachial artery] O2 Saturation 97 97 Oxygen O2 Source Nasal cannula I&O (Last 24 Hrs): Intake and Output Totals x24h 07/21/16 07/22/16 07/23/16 23:59 23:59 23:59 Intake Total 4391 2595 1680 Output Total 5666 4688 1356 Balance -1275 -2030 324 General: Alert, Oriented x3, Cooperative, No acute distress HEENT: Atraumatic, PERRLA, EOMI, Mucous membr. moist/pink Neck: Supple, No JVD, No thyromegaly, +2 carotid pulse wo bruit, No LAD Lymphatic: no adenopathy Neuro: Alert, Non Focal, CN 2-12 Grossly Intact, Oriented Times 3 Cardiovascular: Regular rate, Normal S1, Normal S2, No murmurs Respiratory: Chest non-tender, No respiratory distress, Rales (Faint bibaliar), Rhonchi (bilateral improved) Abdomen: Normal bowel sounds, Soft, No tenderness, No hepatospenomegaly, No masses Extremities: No clubbing, No cyanosis, No edema, Normal pulses, No tenderness/ swelling - Results Results: Laboratory Results WBC 18.2 x10^3/uL (4.8-10.8) H 07/23/16 03:15 RBC 2.93 10^6/uL (4.20-5.40) L 07/23/16 03:15 Hgb 9.0 g/dL (12.0-16.0) L 07/23/16 03:15 Hct 27.2 % (37.0-47.0) L 07/23/16 03:15 MCV 92.8 fL (81.0-99.0) 07/23/16 03:15 MCH 30.7 pg (27.0-31.0) 07/23/16 03:15 MCHC 33.1 g/dL (32.0-36.0) 07/23/16 03:15 RDW 15.2 % (12.0-15.0) H 07/23/16 03:15 Plt Count 274 10^3/uL (130-450) 07/23/16 03:15 MPV 8.1 fL (7.9-10.8) 07/23/16 03:15 Neut # Not Reportable 07/23/16 03:15 Lymph # Not Reportable 07/23/16 03:15 [place] # Not Reportable 07/23/16 03:15 Eos # Not Reportable 07/23/16 03:15 Baso # Not Reportable 07/23/16 03:15 Absolute Nucleated RBC Not Reportable 07/23/16 03:15 Total Counted 100 07/23/16 03:15 Band Neuts % (Manual) 7 % (0-10) 07/23/16 03:15 Metamyelocytes % 4 % (-0) H 07/20/16 08:54 Neutrophils # (Manual) 12.4 10^3/uL (1.5-6.6) H 07/23/16 03:15 Lymphocytes # (Manual) 4.2 10^3/uL (1.5-3.5) H 07/23/16 03:15 Monocytes # (Manual) 1.6 10^3/uL (0.0-1.0) H 07/23/16 03:15 Eosinophils # (Manual) 0.2 10^3/uL (0-0.7) 07/19/16 20:50 Basophils # (Manual) 0.1 10^3/uL (0-0.1) 07/19/16 20:50 Nucleated RBCs Not Reportable 07/23/16 03:15 Differential Comment MANUAL DIFFERENTIAL 07/23/16 03:15 Manual Slide Review Indicated 07/21/16 04:12 WBC Morphology NORMAL APPEARANCE (NORMAL) 07/19/16 20:50 Platelet Estimate NORMAL (130-450,000) (NORMAL) 07/23/16 03:15 Platelet Morphology NORMAL APPEARANCE (NORMAL) 07/21/16 04:12 RBC Morph Micro Appear NORMAL APPEARANCE (NORMAL) 07/23/16 03:15 ESR 29 mm/Hr (0-30) 07/19/16 20:50 VBG pH 7.432 (7.31-7.41) H 07/23/16 03:15 Ionized Calcium 1.17 mmol/L (1.15-1.33) 07/23/16 03:15 Sodium 142 mmol/L (135-145) 07/23/16 03:15 Potassium 2.7 mmol/L (3.5-5.0) L 07/23/16 03:15 Chloride 110 mmol/L (101-111) 07/23/16 03:15 Carbon Dioxide 23 mmol/L (21-32) 07/23/16 03:15 Anion Gap 9.0 (6-13) 07/23/16 03:15 BUN 32 mg/dL (6-20) H 07/23/16 03:15 Creatinine 1.3 mg/dL (0.4-1.0) H 07/23/16 03:15 Estimated GFR (MDRD) 39 (>89) L 07/23/16 03:15 Glucose 87 mg/dL (70-100) 07/23/16 03:15 Lactic Acid 1.1 mmol/L (0.5-2.2) 07/20/16 08:54 Calcium 8.3 mg/dL (8.5-10.3) L 07/23/16 03:15 Ionized Calcium YES 07/23/16 03:15 Phosphorus 1.6 mg/dL (2.5-4.6) L 07/23/16 03:15 Magnesium 1.8 mg/dL (1.7-2.8) 07/23/16 03:15 Iron 10 ug/dL (28-170) L 07/22/16 08:50 TIBC 262 ug/dL (250-450) 07/22/16 08:50 % Saturation 4 % (20-50) L 07/22/16 08:50 Transferrin 187 mg/dL (192-382) L 07/22/16 08:50 Ferritin 63.1 ng/mL (11.0-306.8) 07/22/16 08:50 Total Bilirubin 0.2 mg/dL (0.2-1.0) 07/23/16 03:15 AST 20 IU/L (10-42) 07/23/16 03:15 ALT 22 IU/L (10-60) 07/23/16 03:15 Alkaline Phosphatase 53 IU/L (42-121) 07/23/16 03:15 Troponin I 1.36 ng/mL (<0.49) H* 07/20/16 14:18 C-Reactive Protein 4.0 mg/dL (0-1.0) H 07/19/16 20:50 B-Natriuretic Peptide 1182 pg/mL (5-100) H 07/23/16 03:15 Total Protein 5.6 g/dL (6.7-8.2) L 07/23/16 03:15 Albumin 2.5 g/dL (3.2-5.5) L 07/23/16 03:15 Globulin 3.1 g/dL (2.1-4.2) 07/23/16 03:15 Albumin/Globulin Ratio 0.8 (1.0-2.2) L 07/23/16 03:15 Lipase 116 U/L (22-51) H 07/19/16 20:50 Vitamin B12 1375 pg/mL (180-914) H 07/22/16 08:50 Folate 20.52 ng/mL (5.90 - >24.8) 07/22/16 08:50 Urine Color YELLOW 07/19/16 21:53 Urine Clarity CLEAR (CLEAR) 07/19/16 21:53 Urine pH 7.5 PH (5.0-7.5) 07/19/16 21:53 Ur Specific [place] 1.010 (1.002-1.030) 07/19/16 21:53 Urine Protein NEGATIVE mg/dL (NEGATIVE) 07/19/16 21:53 Urine Glucose (UA) NEGATIVE mg/dL (NEGATIVE) 07/19/16 21:53 Urine Ketones NEGATIVE mg/dL (NEGATIVE) 07/19/16 21:53 Urine Occult Blood NEGATIVE (NEGATIVE) 07/19/16 21:53 Urine Nitrite NEGATIVE (NEGATIVE) 07/19/16 21:53 Urine Bilirubin NEGATIVE (NEGATIVE) 07/19/16 21:53 Urine Urobilinogen 0.2 (NORMAL) E.U./dL (NORMAL) 07/19/16 21:53 Ur Leukocyte Esterase NEGATIVE (NEGATIVE) 07/19/16 21:53 Ur Microscopic Review NOT INDICATED 07/19/16 21:53 Urine Culture Comments NOT INDICATED 07/19/16 21:53 - Procedures Procedures: Procedures CATARAC PHACOEMULS/ASPIR (03/20/14) ESOPHAGOGASTRODUODENOSCOPY [EGD] W/CLOSED BIOPSY (11/08/13) INSERT LENS AT CATAR EXT (03/20/14)
[2016-07-24] MEDS: HEPARIN 5,000 UNIT/ML VIAL SUBQ SCH ×3 (01:00→20:28)
[2016-07-24] MEDS: SODIUM CHLORIDE FLUSH 0.9% 10 ML SYRINGE IVP SCH ×4 (02:39→20:28)
[2016-07-24] MEDS: MONTELUKAST 10 MG TABLET PO SCH ×2 (02:39→20:28)
[2016-07-24 05:48] LABS: BASOPHILS % (AUTO) 0.3 %; EOSINOPHILS % (AUTO) 3.8 %; HCT - HEMATOCRIT 27.7 % (37.0-47.0); HGB - HEMOGLOBIN 8.9 g/dL (12.0-16.0); LYMPHOCYTES % (AUTO) 12.3 %; MEAN CORPUSCULAR HEMOGLOBIN 30.2 pg (27.0-31.0); MEAN CORPUSCULAR HGB CONC 31.9 g/dL (32.0-36.0); MEAN CORPUSCULAR VOLUME 94.5 fL (81.0-99.0); MEAN PLATELET VOLUME 7.9 fL (7.9-10.8); MONOCYTES % (AUTO) 9.1 %; NEUTROPHILS % (AUTO) 74.5 %; RED BLOOD COUNT 2.94 10^6/uL (4.20-5.40); RED CELL DISTRIBUTION WIDTH 15.8 % (12.0-15.0); UNCORRECTED WHITE BLOOD COUNT 12.6 x10^3/uL; WHITE BLOOD COUNT 12.6 x10^3/uL (4.8-10.8)
[2016-07-24 05:59] LABS: ALBUMIN/GLOBULIN RATIO 0.9 (1.0-2.2); BILIRUBIN,TOTAL 0.4 mg/dL (0.2-1.0); BUN - BLOOD UREA NITROGEN 26 mg/dL (6-20); CALCIUM 8.6 mg/dL (8.5-10.3); CARBON DIOXIDE - CO2 24 mmol/L (21-32); CHLORIDE 111 mmol/L (101-111); GFR - MDRD 52 (>89); GLUCOSE 82 mg/dL (70-100); PHOSPHORUS 2.6 mg/dL (2.5-4.6); POTASSIUM 3.4 mmol/L (3.5-5.0); SODIUM 143 mmol/L (135-145)
[2016-07-24 06:49] LABS: BAND NEUTROPHILS % (MANUAL) 6 %; EOSINOPHILS % (MANUAL) 5 %; LYMPHOCYTES % (MANUAL) 13 %; NEUTROPHILS % (MANUAL) 69 %; TOTAL CELLS COUNTED 100
[2016-07-24 06:50] LABS: NP AUTO DIFFERENTIAL? YES; NP MAN DIFFERENTIAL? NO; PLATELET ESTIMATE, MANUAL NORMAL (130-450,000) (NORMAL); PLATELET MORPHOLOGY NORMAL APPEARANCE (NORMAL)
[2016-07-24] MEDS: ASPIRIN 325 MG TABLET PO SCH (08:52)
[2016-07-24] MEDS: predniSONE 20 MG TABLET PO SCH (08:52)
[2016-07-24] MEDS: POTASSIUM CHLORIDE 20 MEQ TABLET PO SCH (08:53)
[2016-07-24] MEDS: AZITHROMYCIN INJ 500 MG in SODIUM CHLORIDE 0.9% 250 ML IV SCH (08:55)
[2016-07-24] MEDS: POLYETHYLENE GLYCOL 3350 17 GM PACKET PO SCH (09:09)
[2016-07-24] MEDS: FAMOTIDINE 20 MG/50 ML 50 ML IV SCH (10:00)
[2016-07-24] MEDS: CEFEPIME 2 GM in SODIUM CHLORIDE 0.9% MINIBAG 100 ML IV SCH (10:42)
[2016-07-24] MEDS: SODIUM CHLORIDE FLUSH 0.9% 10 ML SYRINGE IVP PRN (10:45)
[2016-07-24] MEDS ORDERED: MIN OIL/DIMETHICON/COCONUT OIL 92 GM TUBE TOP ONE (11:13)
[2016-07-25] MEDS: SODIUM CHLORIDE FLUSH 0.9% 10 ML SYRINGE IVP SCH (06:27)
[2016-07-25 06:52] LABS: BASOPHILS % (AUTO) 0.2 %; EOSINOPHILS # (AUTO) 0.5 10^3/uL (0.0-0.7); EOSINOPHILS % (AUTO) 3.6 %; HCT - HEMATOCRIT 30.6 % (37.0-47.0); HGB - HEMOGLOBIN 9.9 g/dL (12.0-16.0); LYMPHOCYTES # (AUTO) 1.7 10^3/uL (1.5-3.5); LYMPHOCYTES % (AUTO) 11.1 %; MEAN CORPUSCULAR HEMOGLOBIN 30.5 pg (27.0-31.0); MEAN CORPUSCULAR HGB CONC 32.5 g/dL (32.0-36.0); MEAN CORPUSCULAR VOLUME 93.8 fL (81.0-99.0); MEAN PLATELET VOLUME 7.9 fL (7.9-10.8); MONOCYTES # (AUTO) 1.1 10^3/uL (0.0-1.0); MONOCYTES % (AUTO) 7.4 %; NEUTROPHILS # (AUTO) 11.6 10^3/uL (1.5-6.6); NEUTROPHILS % (AUTO) 77.7 %; RED BLOOD COUNT 3.26 10^6/uL (4.20-5.40); RED CELL DISTRIBUTION WIDTH 15.7 % (12.0-15.0); UNCORRECTED WHITE BLOOD COUNT 14.9 x10^3/uL; WHITE BLOOD COUNT 14.9 x10^3/uL (4.8-10.8)
[2016-07-25 07:03] LABS: ALBUMIN/GLOBULIN RATIO 0.8 (1.0-2.2); BILIRUBIN,TOTAL 0.5 mg/dL (0.2-1.0); BUN - BLOOD UREA NITROGEN 26 mg/dL (6-20); CALCIUM 9.1 mg/dL (8.5-10.3); CARBON DIOXIDE - CO2 25 mmol/L (21-32); CHLORIDE 107 mmol/L (101-111); CREATININE 1.2 mg/dL (0.4-1.0); GFR - MDRD 42 (>89); GLUCOSE 89 mg/dL (70-100); POTASSIUM 3.2 mmol/L (3.5-5.0); SODIUM 141 mmol/L (135-145); TOTAL PROTEIN 5.7 g/dL (6.7-8.2)
[2016-07-25 07:17] LABS: NP AUTO DIFFERENTIAL? NO; NP MAN DIFFERENTIAL? YES; PLATELET ESTIMATE, MANUAL NORMAL (130-450,000) (NORMAL); PLATELET MORPHOLOGY NORMAL APPEARANCE (NORMAL)
[2016-07-25] MEDS: AZITHROMYCIN INJ 500 MG in SODIUM CHLORIDE 0.9% 250 ML IV SCH (08:58)
[2016-07-25] MEDS: ASPIRIN 325 MG TABLET PO SCH (09:01)
[2016-07-25] MEDS: predniSONE 20 MG TABLET PO SCH (09:01)
[2016-07-25] MEDS: POTASSIUM CHLORIDE 20 MEQ TABLET PO SCH (09:01)
[2016-07-25] MEDS: HEPARIN 5,000 UNIT/ML VIAL SUBQ SCH (09:03)
[2016-07-25] MEDS: FAMOTIDINE 20 MG/50 ML 50 ML IV SCH (09:03)
[2016-07-25] MEDS: POLYETHYLENE GLYCOL 3350 17 GM PACKET PO SCH (09:03)
[2016-07-25 09:41] VITALS: BP 117/64
[2016-07-25] MEDS: CEFEPIME 2 GM in SODIUM CHLORIDE 0.9% MINIBAG 100 ML IV SCH (10:02)
[2016-07-25] MEDS ORDERED: MAGIC MOUTHWASH 120 ML BOTTLE PO PRN (10:21)
--- NOTE | 2016-07-25 12:04 | PROVIDER PROGRESS NOTE ---
Assessment/Plan - Problem List (1) Septic shock Assessment/Plan: Secondary to pneumonia Blood cx negative Off levophed On broad spectrum abx cefepime and azithro Lactate normalized WBC improved down to 12.6 Bandemia resolved COntinue IV cefepime and azithromycin will discharge on PO vantin and azithro to complete 7 days of treatment Resolved (2) Elevated troponin Assessment/Plan: Echo showed normal EF, moderate tricuspid regurgitation and RVSP of 52 mmHg No wall motion abnormalities Trop peaked at 1.46 No chest pain or EKG changes Likely secondary to septic shock Patient will need follow up with PCP after hospitalization Cardiology would not consider any intervention during septic shock Will need outpatient follow up No chest pain (3) Acute kidney injury Assessment/Plan: Secondary to septic shock [employer] was 1.5 on presentation Improved with IVFs and levophed Then went back up to 1.5 thought to be secondary to zosyn and fluid overload Improved today down to 1.0 will continue to monitor Avoid nephrotoxic agents resolved (4) CAP (community acquired pneumonia) Assessment/Plan: Likely cause of septic shock Blood cx negative 2 days of zosyn and azithromycin, day 3 of cefepime and azithro with change to vantin and azithro at discharge and complete 7 days of treatment since starting cefepime Patient improving, less short of air today Working with PT today needs Rehab Off O2 but still very short of breath with any exertion not ready to go home today (5) Fluid Overload Assessment/Plan: Improving, mild basilar crackles but breathing is much improved Given several doses of lasix but now appears stable Echo showed normal EF but patient does have moderate tricuspid regurg and elevated RVSP PT recs home with home health PT will arrange for home with home health tomorrow - Current Meds Current Meds: Current Medications Generic Name Dose Route Start Last Admin Trade Name Freq PRN Reason Stop Dose Admin Acetaminophen 650 mg 07/20/16 00:52 07/21/16 19:51 Tylenol PO 650 mg Q4HR PRN Administration Pain 1 to 4 Albuterol 2.5 mg 07/20/16 00:52 07/21/16 04:36 INH 2.5 mg Q4HR PRN Administration Wheezing Albuterol/Ipratropium 3 ml 07/22/16 09:41 07/23/16 05:15 Duoneb INH 3 ml RTQID PRN Administration Shortness of Air/Wheezing Aspirin 325 mg 06/16/17 08:00 07/25/16 09:01 Michael PO 325 mg DAILYWM MCKAY Administration Diphenhydramine HCl 25 mg 07/22/16 21:35 07/22/16 21:41 Benadryl PO 25 mg QPM PRN Administration Insomnia Heparin Sodium (Porcine) 5,000 unit 07/20/16 01:00 07/25/16 09:03 SUBQ Not Given BID MCKAY Hydromorphone HCl 0.5 mg 07/20/16 00:52 07/23/16 03:30 Dilaudid Inj IVP 0.5 mg Q2HR PRN Administration Pain 8 to 10 Azithromycin 500 mg/ Sodium 250 mls @ 250 mls/hr 07/20/16 01:00 07/25/16 08:58 Chloride IV 250 mls/hr DAILY MCKAY Administration Famotidine 50 mls @ 100 mls/hr 07/20/16 01:00 07/25/16 09:03 Pepcid 20 Mg/50 Ml IV Not Given DAILY MCKAY Cefepime HCl 2 gm/ Sodium 100 mls @ 200 mls/hr 07/22/16 10:00 07/25/16 10:02 Chloride IV 200 mls/hr Q24H MCKAY Administration Montelukast Sodium 10 mg 07/20/16 21:00 07/24/16 20:28 Singulair PO 10 mg QPM MCKAY Administration Ondansetron HCl 4 mg 07/20/16 00:52 07/20/16 10:27 Zofran Inj IVP 4 mg Q6HR PRN Administration Nausea / Vomiting Polyethylene Glycol 17 gm 07/21/16 09:00 07/25/16 09:03 Miralax PO Not Given DAILY MCKAY Potassium Chloride 20 meq 07/24/16 08:00 07/25/16 09:01 K-Dur PO 20 meq DAILYWM MCKAY Administration Prednisone 20 mg 07/23/16 08:00 07/25/16 09:01 Deltasone PO 20 mg DAILYWM MCKAY Administration Sodium Chloride 10 ml 07/20/16 00:52 07/24/16 10:45 Normal Saline Flush 0.9% IVP 10 ml PRN PRN Administration NEEDED PER PROVIDER ORDERS Sodium Chloride 10 ml 07/20/16 06:00 07/25/16 06:27 Normal Saline Flush 0.9% IVP 10 ml Q8HR MCKAY Administration - Lab Result Lab results reviewed: Yes Fish Bone Diagrams: 07/25/16 06:19 07/25/16 06:19 - EKG Results EKG Interpreted Independently: Yes - Diagnostic Imaging Results Diagnostic Imaging Results: positive: Final report reviewed - Additional Planning Condition/Complexity: Improved My Orders: My Active Orders 07/24/16 11:07 Central Line Discontinuation [RC] .ONCE 07/24/16 11:48 Guiaic [OCCULT BLOOD IN PAT. SINGLE] [RAPID] Routine 07/25/16 10:21 Magic Mouthwash 30 ml PO Q4H PRN Consult/Specialty: PT Plan Discussed with:: Patient, Family Subjective - Subjective Patient Reports: Shortness of Breath (Still short of breath with exertion. She is otherwise feeling better at rest), Other (No fevers, no chills, no chest pain. No nausea, no vomiting.) Nursing Reports: No Complaints Objective Vital Signs: Vital Signs - 24 hr 07/24/16 07/24/16 07/24/16 13:00 13:10 17:32 Temperature 36.8 C Heart Rate Heart Rate [ Brachial] Heart Rate [ 88 84 Monitoring electrodes] Respiratory 22 20 Rate Blood Pressure [Left Ankle] Blood Pressure 140/71 H [Right Brachial artery] O2 Saturation 94 94 O2 Saturation [ 96 With Activity] 07/24/16 07/24/16 07/24/16 17:59 19:10 20:00 Temperature 36.2 C L Heart Rate 96 Heart Rate [ Brachial] Heart Rate [ 95 104 H Monitoring electrodes] Respiratory 16 20 Rate Blood Pressure 154/83 H [Left Ankle] Blood Pressure 159/91 H [Right Brachial artery] O2 Saturation 99 O2 Saturation [ With Activity] 07/24/16 07/25/16 07/25/16 20:19 00:25 06:09 Temperature 36.6 C 36.5 C 36.6 C Heart Rate Heart Rate [ 100 91 87 Brachial] Heart Rate [ Monitoring electrodes] Respiratory 16 20 18 Rate Blood Pressure [Left Ankle] Blood Pressure 134/78 H 121/69 128/74 [Right Brachial artery] O2 Saturation 95 94 93 O2 Saturation [ With Activity] 07/25/16 09:00 Temperature 36.6 C Heart Rate Heart Rate [ 84 Brachial] Heart Rate [ Monitoring electrodes] Respiratory 16 Rate Blood Pressure [Left Ankle] Blood Pressure 117/64 [Right Brachial artery] O2 Saturation 97 O2 Saturation [ With Activity] Oxygen O2 Source [With Activity] Room air O2 Source Room air I&O (Last 24 Hrs): Intake and Output Totals x24h 07/23/16 07/24/16 07/25/16 23:59 23:59 23:59 Intake Total 1680 1020 640 Output Total 1356 1500 1650 Balance 324 -480 -1010 General: Alert, Oriented x3, Cooperative, Other (pressured speech, anxious, cachectic) HEENT: Atraumatic, PERRLA, EOMI, Mucous membr. moist/pink Neck: Supple, No JVD, No thyromegaly, +2 carotid pulse wo bruit, No LAD Lymphatic: no adenopathy Neuro: Alert, Non Focal, CN 2-12 Grossly Intact, Oriented Times 3 Cardiovascular: Regular rate, Normal S1, Normal S2 Respiratory: Chest non-tender, Rales (improved at bases), Rhonchi (Improved bilateral) Abdomen: Normal bowel sounds, Soft, No tenderness, No hepatospenomegaly, No masses Extremities: No clubbing, No cyanosis, No edema, Normal pulses Skin: No rashes, No breakdown - Results Results: Laboratory Results WBC 14.9 x10^3/uL (4.8-10.8) H 07/25/16 06:19 RBC 3.26 10^6/uL (4.20-5.40) L 07/25/16 06:19 Hgb 9.9 g/dL (12.0-16.0) L 07/25/16 06:19 Hct 30.6 % (37.0-47.0) L 07/25/16 06:19 MCV 93.8 fL (81.0-99.0) 07/25/16 06:19 MCH 30.5 pg (27.0-31.0) 07/25/16 06:19 MCHC 32.5 g/dL (32.0-36.0) 07/25/16 06:19 RDW 15.7 % (12.0-15.0) H 07/25/16 06:19 Plt Count 331 10^3/uL (130-450) 07/25/16 06:19 MPV 7.9 fL (7.9-10.8) 07/25/16 06:19 Neut # 11.6 10^3/uL (1.5-6.6) H 07/25/16 06:19 Lymph # 1.7 10^3/uL (1.5-3.5) 07/25/16 06:19 [place] # 1.1 10^3/uL (0.0-1.0) H 07/25/16 06:19 Eos # 0.5 10^3/uL (0.0-0.7) 07/25/16 06:19 Baso # 0.0 10^3/uL (0.0-0.1) 07/25/16 06:19 Absolute Nucleated RBC 0.00 x10^3/uL 07/25/16 06:19 Total Counted 100 07/24/16 05:25 Band Neuts % (Manual) Not Reportable 07/25/16 06:19 Reactive Lymphs % (Man) 1 % 07/24/16 05:25 Metamyelocytes % 4 % (-0) H 07/20/16 08:54 Neutrophils # (Manual) 9.5 10^3/uL (1.5-6.6) H 07/24/16 05:25 Lymphocytes # (Manual) 1.8 10^3/uL (1.5-3.5) 07/24/16 05:25 Monocytes # (Manual) 0.8 10^3/uL (0.0-1.0) 07/24/16 05:25 Eosinophils # (Manual) 0.6 10^3/uL (0-0.7) 07/24/16 05:25 Basophils # (Manual) 0.1 10^3/uL (0-0.1) 07/19/16 20:50 Nucleated RBCs 0.0 /100WBC 07/25/16 06:19 Differential Comment MANUAL=AUTO DIFF 07/25/16 06:19 Manual Slide Review Indicated 07/21/16 04:12 WBC Morphology NORMAL APPEARANCE (NORMAL) 07/19/16 20:50 Platelet Estimate NORMAL (130-450,000) (NORMAL) 07/25/16 06:19 Platelet Morphology NORMAL APPEARANCE (NORMAL) 07/25/16 06:19 RBC Morph Micro Appear 1+ ANISOCYTOSIS (NORMAL) 1+ SCHISTOCYTES (NORMAL) 05:25 RBC Morph Micro Appear NORMAL APPEARANCE (NORMAL) 07/25/16 06:19 ESR 29 mm/Hr (0-30) 07/19/16 20:50 VBG pH 7.432 (7.31-7.41) H 07/23/16 03:15 Ionized Calcium 1.17 mmol/L (1.15-1.33) 07/23/16 03:15 Sodium 141 mmol/L (135-145) 07/25/16 06:19 Potassium 3.2 mmol/L (3.5-5.0) L 07/25/16 06:19 Chloride 107 mmol/L (101-111) 07/25/16 06:19 Carbon Dioxide 25 mmol/L (21-32) 07/25/16 06:19 Anion Gap 9.0 (6-13) 07/25/16 06:19 BUN 26 mg/dL (6-20) H 07/25/16 06:19 Creatinine 1.2 mg/dL (0.4-1.0) H 07/25/16 06:19 Estimated GFR (MDRD) 42 (>89) L 07/25/16 06:19 Glucose 89 mg/dL (70-100) 07/25/16 06:19 Lactic Acid 1.1 mmol/L (0.5-2.2) 07/20/16 08:54 Calcium 9.1 mg/dL (8.5-10.3) 07/25/16 06:19 Ionized Calcium NO 07/25/16 06:19 Phosphorus 3.0 mg/dL (2.5-4.6) 07/25/16 06:19 Magnesium 2.0 mg/dL (1.7-2.8) 07/25/16 06:19 Iron 10 ug/dL (28-170) L 07/22/16 08:50 TIBC 262 ug/dL (250-450) 07/22/16 08:50 % Saturation 4 % (20-50) L 07/22/16 08:50 Transferrin 187 mg/dL (192-382) L 07/22/16 08:50 Ferritin 63.1 ng/mL (11.0-306.8) 07/22/16 08:50 Total Bilirubin 0.5 mg/dL (0.2-1.0) 07/25/16 06:19 AST 22 IU/L (10-42) 07/25/16 06:19 ALT 23 IU/L (10-60) 07/25/16 06:19 Alkaline Phosphatase 57 IU/L (42-121) 07/25/16 06:19 Troponin I 1.36 ng/mL (<0.49) H* 07/20/16 14:18 C-Reactive Protein 4.0 mg/dL (0-1.0) H 07/19/16 20:50 B-Natriuretic Peptide 943 pg/mL (5-100) H 07/25/16 06:19 Total Protein 5.7 g/dL (6.7-8.2) L 07/25/16 06:19 Albumin 2.6 g/dL (3.2-5.5) L 07/25/16 06:19 Globulin 3.1 g/dL (2.1-4.2) 07/25/16 06:19 Albumin/Globulin Ratio 0.8 (1.0-2.2) L 07/25/16 06:19 Lipase 116 U/L (22-51) H 07/19/16 20:50 Vitamin B12 1375 pg/mL (180-914) H 07/22/16 08:50 Folate 20.52 ng/mL (5.90 - >24.8) 07/22/16 08:50 Urine Color YELLOW 07/19/16 21:53 Urine Clarity CLEAR (CLEAR) 07/19/16 21:53 Urine pH 7.5 PH (5.0-7.5) 07/19/16 21:53 Ur Specific [place] 1.010 (1.002-1.030) 07/19/16 21:53 Urine Protein NEGATIVE mg/dL (NEGATIVE) 07/19/16 21:53 Urine Glucose (UA) NEGATIVE mg/dL (NEGATIVE) 07/19/16 21:53 Urine Ketones NEGATIVE mg/dL (NEGATIVE) 07/19/16 21:53 Urine Occult Blood NEGATIVE (NEGATIVE) 07/19/16 21:53 Urine Nitrite NEGATIVE (NEGATIVE) 07/19/16 21:53 Urine Bilirubin NEGATIVE (NEGATIVE) 07/19/16 21:53 Urine Urobilinogen 0.2 (NORMAL) E.U./dL (NORMAL) 07/19/16 21:53 Ur Leukocyte Esterase NEGATIVE (NEGATIVE) 07/19/16 21:53 Ur Microscopic Review NOT INDICATED 07/19/16 21:53 Urine Culture Comments NOT INDICATED 07/19/16 21:53 - Procedures Procedures: Procedures CATARAC PHACOEMULS/ASPIR (03/20/14) ESOPHAGOGASTRODUODENOSCOPY [EGD] W/CLOSED BIOPSY (11/08/13) INSERT LENS AT CATAR EXT (03/20/14)
--- NOTE | 2016-07-25 12:17 | Discharge Plan ---
Discharge Plan Disposition: Home Health Service Condition: Fair Prescriptions: Aspirin [Adult Low Dose Aspirin EC] 81 mg PO DAILY #30 tablet. Azithromycin 250 mg PO DAILY #3 tablet Nystatin 100,000 unit PO QID 7 Days Cefpodoxime Proxetil [Vantin] 200 mg PO BID #6 tablet Diet: Regular Activity Restrictions: Activity as Tolerated Shower Restrictions: No Driving Restrictions: No Assistance Devices: Walker Weight Bearing: Full Weight Additional Instructions or Follow Up instructions: You presented to the emergency department with septic shock secondary to pneumonia. You were given IV antibiotics and treated with medications to keep your blood pressure up. You were initially very sick but have slowly been able to recover with antibiotics. Secondary to the septic shock you also had strain on your heart which caused you to have an elevated troponin. I did start you on some aspirin for this and you will need to followup with Dr. garcia. You will need to continue antibiotics orally for the next 3 days to complete a course. You were also referred for home health PT and nursing. You should followup with Dr. garcia regarding your polymyalgia rheumatica I will continue you on your same dose of prednisone at discharge. Follow-Up Care: Home Health - RN, Home Health - PT No Smoking: If you smoke, Please STOP! Call for help.
--- NOTE | 2016-07-26 05:32 | DISCHARGE SUMMARY ---
DATE OF ADMISSION: 07/20/2016 DATE OF DISCHARGE: 07/25/2016 PRIMARY CARE PHYSICIAN: Reji Baeza MD DISCHARGING PHYSICIAN: Nicolás Sanchez MD DISCHARGE DIAGNOSES 1. Septic shock. 2. Community-acquired pneumonia. 3. Elevated troponin. 4. Acute kidney injury. 5. Fluid overload. 6. Polymyalgia rheumatica. 7. Venous thromboembolism prophylaxis with low molecular weight heparin. 8. Moderate tricuspid regurgitation. 9. Iron-deficiency anemia. DISCHARGE MEDICATIONS 1. Aspirin 81 mg p.o. daily. 2. Vantin 200 mg p.o. b.i.d. x3 days. 3. Azithromycin 250 mg p.o. daily x3 days. 4. Nystatin 100,000 units p.o. q.i.d. x7 days. 5. Prednisone 20 mg p.o. daily with meals. 6. Tramadol 50 mg p.o. q.8 hours p.r.n. for pain. 7. Multivitamin 1 tablet p.o. daily. 8. Tylenol 650 mg p.o. b.i.d. 9. Zantac 300 mg p.o. daily. 10. Calcium carbonate/vitamin D3 two tablets p.o. daily. 11. Iron sulfate 325 mg p.o. daily. HOSPITAL COURSE: The patient is a very pleasant but very anxious 86-year-old female who has a past me dical history significant for polymyalgia rheumatica currently on prednisone therapy, COPD, osteoporo sis, eczema, psoriasis, and history of bladder cancer, who presented to the emergency department with a chief complaint of generalized weakness and nausea. The patient on presentation to the emergency d [facility] was found to be profoundly hypotensive with a blood pressure of 66/40, was tachycardic and had a T max in the emergency room of 39.2. She had a central line placed in the emergency department and was started on IV Levophed along with aggressive IV fluids. The patient was requiring approximate ly 4 liters of oxygen by nasal cannula as she was hypoxic on presentation. The patient's initial ches t x-ray did not show any acute abnormalities. The patient was also having some right upper quadrant p ain and right lower back pain; therefore, a CT chest, abdomen, and pelvis was also done, which reveal ed new bibasilar primary opacities, right greater than left, with small pleural effusions, which was suspicious for pneumonia. The patient also had ground-glass opacity in the left upper lobe, which clare eared slightly more dense than prior examination. The patient also had bandemia of 20% and lactic aci d of 2.3. She was admitted to our intensive care unit for septic shock due to community-acquired pneu monia. The patient was initially treated with IV fluids, IV Levophed, ceftriaxone and azithromycin. T he patient's white blood cell count spiked up to 25,000 and she had a bandemia up to 44%. Her blood c ultures were negative, and she initially had worsening respiratory status with increasing O2 requirem ents and increasing shortness of air. We did have to switch her antibiotics to cefepime and azithromy wei, after which she showed significant improvement. The patient also had fluid overload secondary to all the fluids that she received initially when she was in septic shock, and she received several do ses of Lasix. Her echocardiogram did show some grade 1 diastolic dysfunction and moderate tricuspid r egurgitation, but there was no significant decrease in her ejection fraction. The patient did have an elevated troponin during the hospitalization, which peaked at 1.46. The patient's echocardiogram; charlotte shaw, did not show any wall motion abnormalities. This was thought to be likely secondary to septic shock and due to supply demand mismatch with her severe hypotension. The patient was put on aspirin, she is ALLERGIC TO LIPITOR AND METOPROLOL. The patient had slowly improved over the course of the nex t several days and was able to be transferred out of the ICU. She was weaned off of oxygen. She was still very weak and debilitated from this prolonged hospitalization. The patient was seen by Physical Therapy, who recommended home health PT for the patient, we did order home health PT prior to discha [facility]. The patient's antibiotics were de-escalated to oral Vantin and oral azithromycin, which she will take for another 3 days after discharge to complete a course of antibiotics for her pneumonia and se ptic shock. The patient will continue on her prednisone at 10 mg daily and taper down as instructed patricia Baeza. The patient will follow up with her primary care physician to ensure that she is fully re covered from this acute infection. The patient is planning to go to [place] in 3 weeks on a cruise. yue will need significant improvement from where she is right now to be able to go on that cruise, but she does seem to be motivated and she will be helped by her daughter, who is going to be staying with her for the next week and is a former nurse. The patient was a very pleasant lady whom it was a plea sure to take care of, and she will follow up with her primary care physician for further care. PHYSICAL EXAMINATION VITAL SIGNS: Temperature 36.6, heart rate 84, blood pressure 117/64, respiratory rate 16, O2 saturati on 97% on room air. GENERAL: The patient is a elderly, cachectic appearing female who appears to be younger than her stat ed age. She is alert and able to answer my questions appropriately. HEENT: Pupils are equal and reactive to light. Extraocular muscles are intact. Mucous membranes are m oist. There is no conjunctival pallor or scleral icterus noted. The patient does have some oral thrus h. NECK: Supple. No thyromegaly. No JVD. Trachea is midline. LYMPH NODES: There is no cervical or axillary adenopathy noted. CARDIOVASCULAR: S1, S2, regular rate and rhythm. No murmurs, rubs, or gallops. LUNGS: There are some mild bibasilar crackles and mild rhonchi heard. These are much improved from pr evious examinations. The patient is not in any respiratory distress at the moment. ABDOMEN: Soft, nontender, nondistended. Bowel sounds are present in all 4 quadrants. EXTREMITIES: There is no lower extremity edema. Peripheral pulses are palpable. There is no cyanosis or clubbing. MUSCULOSKELETAL: The patient has good range of motion. No joint tenderness, no joint effusions. SKIN: There are no skin rashes, lesions, cellulitis, or abscesses. The patient does have some hypopig mentation over her entire skin that looks almost like she has some vitiligo, but the patient states t hat this is a reaction to a medication in the past. NEUROLOGIC: The patient is alert and oriented x3. Cranial nerves 2-12 grossly intact. Strength is destin ssly normal. Sensations are intact. LABORATORY: WBC is 14.9, hemoglobin 9.9, hematocrit 30.6, platelet count 331. Ionized calcium 1.17, s odium 141, potassium 3.2, chloride 107, carbon dioxide 25, BUN 26, creatinine 1.2, glucose 89, calciu m 9.1, phosphorus 3.0, magnesium 2.0. Iron 10, TIBC 262, ferritin 63.1, BNP 943, total bilirubin 0.5, AST 22, ALT 23, alkaline phosphatase 57, vitamin B12 is 1375. Folate 20.52. IMAGING 1. Echocardiogram, impression: 1) Overall, left ventricular systolic function is normal with an eject ion fraction of 70% to 75%. 2) Impaired relaxation consistent with grade 1 diastolic dysfunction. 3) Right ventricle is normal in size and function. 4) Severe increase in left atrial volume index. 5) Th ere is mild mitral regurgitation. 6) Moderate tricuspid regurgitation. 7) Right ventricular systolic pressure was at rest is 52 mmHg. 2. Chest x-ray 07/19/2016, impression: No acute cardiopulmonary abnormality. 3. CT abdomen and pelvis 07/19/2016, impression: Multiple nonspecific low normal to upper normal emily harjit fluid-filled small bowel loops with air fluid levels, moderate stool in the colon. 4. CT chest 07/19/2016, impression: 1) New basilar pulmonary opacities, right greater than left, with small pleural effusions, suspect pneumonia or aspiration. 2) Increased interstitial prominence, whic h may represent pulmonary edema. 3) Ground-glass opacities in the left upper lobe, appears more dense and slightly larger compared to prior exam. Slowly growing neoplasm not excluded. 4) Mildly enlarged pretracheal lymph nodes measuring 1.2 cm. This is nonspecific. 5. Chest x-ray 07/19/2016, impression : Right IJ line to low SVC, otherwise no change. No pneumothorax identified. 6. Chest x-ray 07/21/2016, impression: Pulmonary vascular congestion with worsening pulmonary opaciti es and pleural effusions. FOLLOWUP/RECOMMENDATIONS: The patient is being discharged with 3 more days of p.o. antibiotics, which she will complete. She has also been given nystatin for some oral thrush and had been prescribed iro n for iron-deficiency anemia. The patient will follow up with her primary care physician to ensure th at she does recover fully from her pneumonia. She will continue on her paper dose of prednisone for h er polymyalgia rheumatica and follow up with her PCP for further tapering. The patient will get home health PT and RN once she returns home, as she has severe debility due to the slow prolonged hospital ization and severe illness and does require physical therapy to improve her functional status. Greater than 30 minutes were spent on discharge. JOB #: [id number] EXT JOB #:[id number]
== END 2016-07-25 13:22 | disposition home health service (06) | DRG 871 ==
LOC: ED 20:35 → ICU 07-20 00:52 → MS 07-24 17:56
PROVIDERS: ADMIT Specialist; ATTEND Internal Medicine
DX: A41.9 Sepsis, unspecified organism (principal); J18.9 Pneumonia, unspecified organism; R65.21 Severe sepsis with septic shock; I95.9 Hypotension, unspecified; E86.0 Dehydration; J96.01 Acute respiratory failure with hypoxia; K21.9 Gastro-esophageal reflux disease without esophagitis; Z85.828 Personal history of other malignant neoplasm of skin; J44.0 Chronic obstructive pulmonary disease with (acute) lower respiratory infection; N17.9 Acute kidney failure, unspecified; B37.0 Candidal stomatitis; E87.70 Fluid overload, unspecified; T50.3X5A Adverse effect of electrolytic, caloric and water-balance agents, initial encounter; Y92.239 Unspecified place in hospital as the place of occurrence of the external cause; R45.1 Restlessness and agitation; I07.1 Rheumatic tricuspid insufficiency; D50.9 Iron deficiency anemia, unspecified; M35.3 Polymyalgia rheumatica; N18.3 Chronic kidney disease, stage 3 (moderate); L40.9 Psoriasis, unspecified; L30.9 Dermatitis, unspecified; D47.2 Monoclonal gammopathy; E78.5 Hyperlipidemia, unspecified; M81.0 Age-related osteoporosis without current pathological fracture; Z96.649 Presence of unspecified artificial hip joint; Z85.51 Personal history of malignant neoplasm of bladder; Z86.79 Personal history of other diseases of the circulatory system; Z90.49 Acquired absence of other specified parts of digestive tract; Z72.0 Tobacco use; Z79.52 Long term (current) use of systemic steroids; Z88.8 Allergy status to other drugs, medicaments and biological substances; Z87.898 Personal history of other specified conditions
CPT/HCPCS: 36415; 36556; 36569; 43752; 51701; 51702; 71010; 71020; 71250; 74176; 80053; 81001; 81003; 82270; 82330; 82607; 82728; 82746; 83540; 83605; 83690; 83735; 83880; 84100; 84132; 84466; 84484; 85025; 85651; 86140; 87040; 87070; 87086; 87150; 87205; 93005; 93306; 94640; 96361; 96365; 96366; 96368; 96375; 99285

== ENCOUNTER 2016-08-03 10:07 | Outpatient (CLI) | payer MEDICARE, OTHER | END 2016-08-03 10:08 | disposition home or self-care (01) | LOC: LAB 10:07 | PROVIDERS: ATTEND Internal Medicine | DX: M35.3 Polymyalgia rheumatica (principal) | CPT/HCPCS: 36415; 85651; 86140 ==

== ENCOUNTER 2016-08-31 10:01 | Outpatient (CLI) | payer MEDICARE, OTHER | END 2016-08-31 10:02 | disposition home or self-care (01) | LOC: LAB 10:01 | PROVIDERS: ATTEND Internal Medicine | DX: M35.3 Polymyalgia rheumatica (principal) | CPT/HCPCS: 36415; 85651; 86140 ==

== ENCOUNTER 2016-10-05 14:42 | Outpatient (CLI) | payer MEDICARE, OTHER | END 2016-10-05 14:43 | disposition home or self-care (01) | LOC: LAB.R 14:42 | PROVIDERS: ATTEND Internal Medicine | DX: M35.3 Polymyalgia rheumatica (principal) | CPT/HCPCS: 85651; 86140 ==

== ENCOUNTER 2016-11-02 13:43 | Outpatient (CLI) | payer MEDICARE, OTHER | END 2016-11-02 13:44 | disposition home or self-care (01) | LOC: LAB.R 13:43 | PROVIDERS: ATTEND Internal Medicine | DX: M35.3 Polymyalgia rheumatica (principal); Z79.899 Other long term (current) drug therapy | CPT/HCPCS: 85651; 86140 ==

== ENCOUNTER 2016-11-15 16:07 | Outpatient (CLI) | payer MEDICARE, OTHER ==
[2016-11-15 16:51] LABS: BASOPHILS # (AUTO) 0.1 10^3/uL (0.0-0.1); BASOPHILS % (AUTO) 1.1 %; EOSINOPHILS # (AUTO) 0.6 10^3/uL (0.0-0.7); EOSINOPHILS % (AUTO) 5.4 %; HCT - HEMATOCRIT 37.3 % (37.0-47.0); HGB - HEMOGLOBIN 12.1 g/dL (12.0-16.0); LYMPHOCYTES # (AUTO) 1.3 10^3/uL (1.5-3.5); LYMPHOCYTES % (AUTO) 11.5 %; MEAN CORPUSCULAR HGB CONC 32.4 g/dL (32.0-36.0); MEAN CORPUSCULAR VOLUME 92.4 fL (81.0-99.0); MEAN PLATELET VOLUME 8.1 fL (7.9-10.8); MONOCYTES # (AUTO) 0.9 10^3/uL (0.0-1.0); MONOCYTES % (AUTO) 8.1 %; NEUTROPHILS # (AUTO) 8.6 10^3/uL (1.5-6.6); NEUTROPHILS % (AUTO) 73.9 %; RED BLOOD COUNT 4.03 10^6/uL (4.20-5.40); RED CELL DISTRIBUTION WIDTH 16.2 % (12.0-15.0); UNCORRECTED WHITE BLOOD COUNT 11.6 x10^3/uL; WHITE BLOOD COUNT 11.6 x10^3/uL (4.8-10.8)
[2016-11-15 17:04] LABS: ALBUMIN/GLOBULIN RATIO 1.4 (1.0-2.2); BILIRUBIN,TOTAL 0.3 mg/dL (0.2-1.0); CALCIUM 10.3 mg/dL (8.5-10.3); CREATININE 1.8 mg/dL (0.4-1.0); POTASSIUM 4.5 mmol/L (3.5-5.0); TOTAL PROTEIN 7.3 g/dL (6.7-8.2)
--- NOTE | 2016-11-15 17:27 | XRAY Preliminary Report ---
Exam: XR Chest 2 View PA/LAT IMPRESSION: No acute cardiopulmonary disease is seen. Small hiatal hernia is suspected. [facility] SITE ID: [id number]
--- NOTE | 2016-11-15 17:29 | XRAY Report ---
EXAM: CHEST RADIOGRAPHY EXAM DATE: 11/15/2016 04:36 PM. CLINICAL HISTORY: DYSPNEA. COMPARISON: Chest 07/21/2016. TECHNIQUE: 2 views. FINDINGS: Lungs/Pleura: No consolidation. No acute pulmonary findings are seen. No pleural effusion. No pneumot horax. Mediastinum: Normal heart size. Small hiatal hernia is suspected. IMPRESSION: No acute cardiopulmonary disease is seen. Small hiatal hernia is suspected. [facility] Referring Provider Line: [phone] SITE ID: [id number]
== END 2016-11-15 16:08 | disposition home or self-care (01) ==
LOC: DI 16:07
PROVIDERS: ATTEND Internal Medicine
DX: R06.00 Dyspnea, unspecified (principal)
CPT/HCPCS: 36415; 71020; 80053; 85025

== ENCOUNTER 2016-11-30 12:33 | Outpatient (CLI) | payer MEDICARE, OTHER ==
[2016-11-30 18:43] LABS: BUN - BLOOD UREA NITROGEN 31 mg/dL (6-20); CALCIUM 9.5 mg/dL (8.5-10.3); CARBON DIOXIDE - CO2 26 mmol/L (21-32); CHLORIDE 103 mmol/L (101-111); CREATININE 1.7 mg/dL (0.4-1.0); GFR - MDRD 28 (>89); GLUCOSE 95 mg/dL (70-100); POTASSIUM 3.7 mmol/L (3.5-5.0); SODIUM 137 mmol/L (135-145)
== END 2016-11-30 12:34 | disposition home or self-care (01) ==
LOC: LAB.R 12:33
PROVIDERS: ATTEND Physician Assistant Medical
DX: N18.9 Chronic kidney disease, unspecified (principal); M35.3 Polymyalgia rheumatica; Z79.899 Other long term (current) drug therapy
CPT/HCPCS: 80048; 85651; 86140

== ENCOUNTER 2016-12-18 10:18 | Emergency (ER) | payer MEDICARE, OTHER ==
[2016-12-18 11:18] LABS: BASOPHILS # (AUTO) 0.1 10^3/uL (0.0-0.1); EOSINOPHILS # (AUTO) 0.7 10^3/uL (0.0-0.7); EOSINOPHILS % (AUTO) 6.3 %; HCT - HEMATOCRIT 24.8 % (37.0-47.0); HGB - HEMOGLOBIN 8.3 g/dL (12.0-16.0); LYMPHOCYTES # (AUTO) 1.1 10^3/uL (1.5-3.5); MEAN CORPUSCULAR HEMOGLOBIN 31.8 pg (27.0-31.0); MEAN CORPUSCULAR HGB CONC 33.7 g/dL (32.0-36.0); MEAN CORPUSCULAR VOLUME 94.5 fL (81.0-99.0); MEAN PLATELET VOLUME 8.6 fL (7.9-10.8); MONOCYTES # (AUTO) 0.9 10^3/uL (0.0-1.0); MONOCYTES % (AUTO) 8.4 %; NEUTROPHILS # (AUTO) 8.2 10^3/uL (1.5-6.6); NEUTROPHILS % (AUTO) 74.3 %; RED BLOOD COUNT 2.62 10^6/uL (4.20-5.40); RED CELL DISTRIBUTION WIDTH 16.4 % (12.0-15.0)
[2016-12-18 11:29] LABS: ALBUMIN/GLOBULIN RATIO 1.5 (1.0-2.2); BILIRUBIN,TOTAL 0.4 mg/dL (0.2-1.0); CALCIUM 9.5 mg/dL (8.5-10.3); CREATININE 1.4 mg/dL (0.4-1.0); POTASSIUM 3.7 mmol/L (3.5-5.0); TOTAL PROTEIN 6.5 g/dL (6.7-8.2)
--- NOTE | 2016-12-18 11:29 | XRAY Preliminary Report ---
Exam: XR CHEST 1 VIEW IMPRESSION: Minimal atelectatic changes at the left base without consolidation. [facility] SITE ID: [id number]
--- NOTE | 2016-12-18 11:32 | XRAY Report ---
EXAM: CHEST RADIOGRAPHY EXAM DATE: 12/18/2016 11:15 AM. CLINICAL HISTORY: Chest pain. COMPARISON: Previous exam of 11/15/2016. TECHNIQUE: 1 view. FINDINGS: Lungs/Pleura: Minimal atelectatic changes seen at the left base. No gross consolidation noted. Mediastinum: Within exam limitations, the cardiomediastinal contour is normal. Other: None. IMPRESSION: Minimal atelectatic changes at the left base without consolidation. [facility] Referring Provider Line: [phone] SITE ID: [id number]
[2016-12-18] MEDS ORDERED: SODIUM CHLORIDE 0.9% 1,000 ML IV ONE ×2 (12:23→12:57)
[2016-12-18] MEDS ORDERED: PANTOPRAZOLE 40 MG VIAL IVP STA (12:49)
--- NOTE | 2016-12-18 12:58 | ED Physician Documentation ---
History of Present Illness - Stated complaint Stated Complaint: WEAKNESS - Chief complaint Chief Complaint: Neuro - History obtained from History obtained from: Patient, Family - History of Present Illness Timing: How many weeks ago (1) Pain level max: 0 Pain level now: 0 Improved by: rest Worsened by: walking - Additonal information Additional information: Patient is an 86-year-old female who presents to the emergency department with weakness for the past week. Has noticed dark tarry stools. This has not happened to her before. States last colonoscopy was 10 years ago. Does have a hiatal hernia and is on omeprazole, but does not take it every day. Denies being on any blood thinners. No aspirin or NSAID use. No alcohol. States can only walk 5-10 feet before she is out of breath. Review of Systems Ten Systems: 10 systems reviewed and negative Constitutional: denies: Fever, Chills Ears: denies: Ear pain Nose: denies: Rhinorrhea / runny nose, Congestion Throat: denies: Sore throat Cardiac: denies: Chest pain / pressure Respiratory: denies: Cough GI: reports: Bloody / black stool. denies: Abdominal Pain, Abdominal Swelling, Nausea, Vomiting, Hematemesis Skin: denies: Rash Musculoskeletal: denies: Neck pain, Back pain Neurologic: reports: Generalized weakness. 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, Other Cardiovascular: Other HEENT: Cataracts Derm: Skin cancer surgery - Present Medications Home Medications: Ambulatory Orders Medication Instructions Recorded Confirmed Acetaminophen 650 mg PO BID 07/20/16 12/18/16 Calcium Carbonate/Vitamin D3 2 tab PO DAILY 07/20/16 12/18/16 [Calcium 600-Vit D3 400 Tablet] Multivitamin [Theragran] 1 tab PO DAILY 07/20/16 12/18/16 traMADol [Ultram] 50 mg PO Q8H PRN 07/20/16 12/18/16 predniSONE [Deltasone] 20 mg PO DAILYWM tablet 07/25/16 12/18/16 - Allergies Allergies/Adverse Reactions: Allergies Allergy/AdvReac Type Severity Reaction Status Date / Time shrimp Allergy Severe Anaphylaxis Verified 12/18/16 10:33 ciprofloxacin HCl * Allergy Intermediate Itching Verified 12/18/16 10:33 [From Cipro] Sulfa (Sulfonamide Allergy Mild Respiratory Verified 12/18/16 10:33 Antibiotics) ciprofloxacin [From Cipro] Allergy Itching Verified 12/18/16 10:33 nitrofurantoin Allergy Unknown Verified 12/18/16 10:33 Bpxalvj-Yok-Asx Reductase Allergy Cramps Verified 12/18/16 10:33 Inhibitor levofloxacin AdvReac Nausea Verified 12/18/16 10:33 metoprolol AdvReac Respiratory Verified 12/18/16 10:33 - Social History Does the pt smoke?: No Smoking Status: Never smoker Does the pt drink ETOH?: Yes Does the pt have substance abuse?: No - Immunizations Immunizations are current?: Yes - POLST Patient has POLST: Yes POLST Status: Full Code PD ED PE NORMAL - Vitals Vital signs reviewed: Yes - General General: Alert and oriented X 3, No acute distress, Well developed/nourished - HEENT HEENT: PERRL, Moist mucous membranes - Neck Neck: Supple, no meningeal sign - Cardiac Cardiac: RRR - Respiratory Respiratory: No respiratory distress, Clear bilaterally - Abdomen Abdomen: Soft, Non tender, Non distended - Rectal Rectal: Other (dark stool, hemoccult + QC passed.) - Back Back: No spinal TTP - Derm Derm: Warm and dry, No rash - Extremities Extremities: No edema - Neuro Neuro: Alert and oriented X 3 - Psych Psych: Normal mood, Normal affect Results - Vitals Vitals: Vital Signs - 24 hr 12/18/16 12/18/16 12/18/16 10:27 11:21 12:47 Temperature Heart Rate 91 84 93 Respiratory 16 14 14 Rate Blood Pressure 116/65 116/56 L 92/48 L O2 Saturation 100 100 92 12/18/16 12/18/16 12/18/16 13:04 13:44 15:00 Temperature 36.3 C L 36.9 C Heart Rate 93 93 Respiratory 20 14 Rate Blood Pressure 103/49 L 84/47 L O2 Saturation 100 95 Oxygen O2 Source [] Room air O2 Source Room air - EKG (time done) 1044 Rate: Rate (enter#) (84) Rhythm: NSR Lyman: Normal Intervals: Normal ID QRS: Normal Ischemia: Normal ST segments - Labs Labs: Laboratory Tests 12/18/16 12/18/16 12/18/16 10:43 10:43 10:45 WBC 11.0 H RBC 2.62 L Hgb 8.3 L Hct 24.8 L MCV 94.5 MCH 31.8 H MCHC 33.7 RDW 16.4 H Plt Count 263 MPV 8.6 Neut # 8.2 H Lymph # 1.1 L [place] # 0.9 Eos # 0.7 Baso # 0.1 Absolute Nucleated RBC 0.00 Nucleated RBC % 0.0 PT 11.4 INR 1.0 APTT 22.2 L Sodium 136 Potassium 3.7 Chloride 106 Carbon Dioxide 21 Anion Gap 9.0 BUN 38 H Creatinine 1.4 H Estimated GFR (MDRD) 36 L Glucose 105 H Calcium 9.5 Total Bilirubin 0.4 AST 23 ALT 17 Alkaline Phosphatase 34 L Total Protein 6.5 L Albumin 3.9 Globulin 2.6 Albumin/Globulin Ratio 1.5 Lipase 143 H Urine Color Urine Clarity Urine pH Ur Specific Willis Urine Protein Urine Glucose (UA) Urine Ketones Urine Occult Blood Urine Nitrite Urine Bilirubin Urine Urobilinogen Ur Leukocyte Esterase Urine RBC Urine WBC Ur Squamous Epith Cells Urine Bacteria Ur Microscopic Review Urine Culture Comments Blood Type Antibody Screen 12/18/16 12/18/16 13:15 13:29 WBC RBC Hgb Hct MCV MCH MCHC RDW Plt Count MPV Neut # Lymph # [place] # Eos # Baso # Absolute Nucleated RBC Nucleated RBC % PT INR APTT Sodium Potassium Chloride Carbon Dioxide Anion Gap BUN Creatinine Estimated GFR (MDRD) Glucose Calcium Total Bilirubin AST ALT Alkaline Phosphatase Total Protein Albumin Globulin Albumin/Globulin Ratio Lipase Urine Color YELLOW Urine Clarity CLEAR Urine pH 7.0 Ur Specific Willis <=1.005 Urine Protein NEGATIVE Urine Glucose (UA) NEGATIVE Urine Ketones NEGATIVE Urine Occult Blood NEGATIVE Urine Nitrite NEGATIVE Urine Bilirubin NEGATIVE Urine Urobilinogen 0.2 (NORMAL) Ur Leukocyte Esterase TRACE H Urine RBC 0-5 Urine WBC 0-3 Ur Squamous Epith Cells RARE Squamous Urine Bacteria Rare Ur Microscopic Review INDICATED Urine Culture Comments INDICATED Blood Type A POSITIVE Antibody Screen NEGATIVE PD MEDICAL DECISION MAKING - ED course Complexity details: reviewed results, re-evaluated patient, considered differential, d/w patient, d/w family, d/w car 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 Patient is hemodynamically stable. She is well-appearing, nontoxic. Afebrile. Hemoccult positive. Given Protonix IV. Discussed case with Dr. Beck, general surgery here who recommends transfer as the hours are closed until at least Tuesday due to ongoing repairs. Patient and family prefer [facility] for transfer. [facility] called at [phone] - Dr. Knight (hospitalist at [facility]) graciously accepts in transfer. Patient will be transferred [facility] for further evaluation and care. This document was made in part using voice recognition software. While efforts are made to proofread this document, sound alike and grammatical errors may occur. Departure - Departure Disposition: 02 Transfer Acute Care Hosp Clinical Impression: GI bleed Qualifiers: GI bleed type/associated pathology: melena Qualified Code(s): K92.1 - Melena Anemia Qualifiers: Anemia type: unspecified type Qualified Code(s): D64.9 - Anemia, unspecified Condition: Stable Discharge Date/Time: 12/18/16 15:14
[2016-12-18 13:19] LABS: PT - PROTHROMBIN TIME 11.4 secs (9.9-12.6)
[2016-12-18 13:26] LABS: PARTIAL THROMBOPLASTIN TIME 22.2 secs (24.9-33.3)
[2016-12-18] MEDS ORDERED: PANTOPRAZOLE 40 MG VIAL ONE (13:30)
[2016-12-18 13:38] LABS: BILIRUBIN,URINE NEGATIVE (NEGATIVE)
[2016-12-18 13:47] LABS: UA w/ MICROSCOPIC CHARGE YES
[2016-12-18 13:48] LABS: UR CULTURE IF IND INDICATED; WBC,URINE 0-3 /HPF (0-5)
[2016-12-18 15:02] VITALS: BP 84/47
== END 2016-12-18 15:14 | disposition short-term general hospital (02) ==
LOC: ED 10:18
DX: K92.1 Melena (principal); D64.9 Anemia, unspecified; I49.9 Cardiac arrhythmia, unspecified; J44.9 Chronic obstructive pulmonary disease, unspecified; K21.9 Gastro-esophageal reflux disease without esophagitis; K44.9 Diaphragmatic hernia without obstruction or gangrene; M19.90 Unspecified osteoarthritis, unspecified site
CPT/HCPCS: 36415; 71010; 80053; 81001; 81003; 83690; 85025; 85610; 85730; 86850; 86900; 86901; 87086; 93005; 96361; 96374; 99285

== ENCOUNTER 2016-12-18 16:04 | Outpatient (CLI) | payer MEDICARE, OTHER | END 2016-12-18 16:05 | disposition short-term general hospital (02) | LOC: EMS 16:04 | PROVIDERS: ATTEND Surgery | DX: K92.2 Gastrointestinal hemorrhage, unspecified (principal) | CPT/HCPCS: A0425; A0426 ==

== ENCOUNTER 2017-02-10 14:44 | Outpatient (CLI) | payer MEDICARE, OTHER ==
[2017-02-10 13:35] LABS: BASOPHILS # (AUTO) 0.1 10^3/uL (0.0-0.1); BASOPHILS % (AUTO) 1.4 %; EOSINOPHILS # (AUTO) 1.4 10^3/uL (0.0-0.7); EOSINOPHILS % (AUTO) 16.1 %; HGB - HEMOGLOBIN 11.2 g/dL (12.0-16.0); LYMPHOCYTES % (AUTO) 11.7 %; MEAN CORPUSCULAR HEMOGLOBIN 31.6 pg (27.0-31.0); MEAN CORPUSCULAR HGB CONC 33.2 g/dL (32.0-36.0); MEAN PLATELET VOLUME 9.3 fL (7.9-10.8); MONOCYTES % (AUTO) 11.1 %; NEUTROPHILS # (AUTO) 5.2 10^3/uL (1.5-6.6); NEUTROPHILS % (AUTO) 59.7 %; PLT - PLATELET COUNT 249 10^3/uL (130-450); RED BLOOD COUNT 3.53 10^6/uL (4.20-5.40); RED CELL DISTRIBUTION WIDTH 15.2 % (12.0-15.0); WHITE BLOOD COUNT 8.7 x10^3/uL (4.8-10.8)
[2017-02-10 14:38] LABS: PLATELET ESTIMATE, MANUAL NORMAL (130-450,000) (NORMAL); RBC MORPHOLOGY (MULTIPLE) NORMAL APPEARANCE (NORMAL)
[2017-02-10 14:39] LABS: DIFFERENTIAL COMMENT MANUAL=AUTO DIFF
== END 2017-02-10 14:45 | disposition home or self-care (01) ==
LOC: LAB.R 14:44
PROVIDERS: ATTEND Physician Assistant Medical
DX: R53.1 Weakness (principal); M35.3 Polymyalgia rheumatica; Z79.899 Other long term (current) drug therapy
CPT/HCPCS: 85025; 85651; 86140

== ENCOUNTER 2017-03-10 08:00 | Outpatient (CLI) | payer MEDICARE, OTHER | END 2017-03-10 08:01 | disposition home or self-care (01) | LOC: LAB.R 08:00 | PROVIDERS: ATTEND Internal Medicine | DX: M35.3 Polymyalgia rheumatica (principal) | CPT/HCPCS: 85651; 86140 ==

== ENCOUNTER 2017-03-31 08:00 | Outpatient (CLI) | payer MEDICARE, OTHER ==
[2017-03-31 12:34] LABS: BASOPHILS # (AUTO) 0.1 10^3/uL (0.0-0.1); BASOPHILS % (AUTO) 0.6 %; EOSINOPHILS # (AUTO) 1.2 10^3/uL (0.0-0.7); EOSINOPHILS % (AUTO) 9.8 %; HGB - HEMOGLOBIN 10.7 g/dL (12.0-16.0); LYMPHOCYTES # (AUTO) 0.8 10^3/uL (1.5-3.5); LYMPHOCYTES % (AUTO) 6.5 %; MEAN CORPUSCULAR HEMOGLOBIN 31.7 pg (27.0-31.0); MEAN CORPUSCULAR HGB CONC 33.6 g/dL (32.0-36.0); MEAN CORPUSCULAR VOLUME 94.3 fL (81.0-99.0); MEAN PLATELET VOLUME 9.3 fL (7.9-10.8); MONOCYTES # (AUTO) 1.2 10^3/uL (0.0-1.0); MONOCYTES % (AUTO) 10.3 %; NEUTROPHILS # (AUTO) 8.9 10^3/uL (1.5-6.6); NEUTROPHILS % (AUTO) 72.8 %; PLT - PLATELET COUNT 263 10^3/uL (130-450); RED BLOOD COUNT 3.39 10^6/uL (4.20-5.40); RED CELL DISTRIBUTION WIDTH 13.8 % (12.0-15.0); WHITE BLOOD COUNT 12.2 x10^3/uL (4.8-10.8)
[2017-03-31 13:01] LABS: PLATELET ESTIMATE, MANUAL NORMAL (130-450,000) (NORMAL); PLATELET MORPHOLOGY NORMAL APPEARANCE (NORMAL); RBC MORPHOLOGY (MULTIPLE) NORMAL APPEARANCE (NORMAL)
[2017-03-31 13:36] LABS: ALBUMIN 3.8 g/dL (3.2-5.5); ALBUMIN/GLOBULIN RATIO 1.2 (1.0-2.2); BILIRUBIN,TOTAL 0.5 mg/dL (0.2-1.0); CALCIUM 9.7 mg/dL (8.5-10.3); CREATININE 1.6 mg/dL (0.4-1.0); TOTAL PROTEIN 6.9 g/dL (6.7-8.2)
== END 2017-03-31 08:01 | disposition home or self-care (01) ==
LOC: LAB.R 08:00
PROVIDERS: ATTEND Internal Medicine
DX: R63.4 Abnormal weight loss (principal); R53.1 Weakness; R06.00 Dyspnea, unspecified; Z79.899 Other long term (current) drug therapy
CPT/HCPCS: 80053; 84443; 85025

== ENCOUNTER 2017-03-31 10:54 | Outpatient (CLI) | payer MEDICARE, OTHER ==
--- NOTE | 2017-03-31 17:36 | XRAY Report ---
TWO VIEW CHEST: 03/31/2017 CLINICAL INDICATION: Cough. FINDINGS: Frontal and lateral views of the chest are compared to previous film of 12/18/2016. The cardiac silhouette is within normal limits. There is new patchy infiltrate at the left base. No effusion or pneumothorax is present. IMPRESSION: PATCHY LEFT BASILAR INFILTRATE, NEW FROM PREVIOUS. TD: 03/31/2017 17:29
== END 2017-03-31 10:55 | disposition home or self-care (01) ==
LOC: DI 10:54
PROVIDERS: ATTEND Internal Medicine
DX: R91.8 Other nonspecific abnormal finding of lung field (principal); R63.4 Abnormal weight loss; R53.1 Weakness; R06.00 Dyspnea, unspecified; Z79.899 Other long term (current) drug therapy
CPT/HCPCS: 71046; 80053; 84443; 85025

== ENCOUNTER 2017-05-16 09:32 | Outpatient (CLI) | payer MEDICARE, OTHER ==
[2017-05-16] MEDS ORDERED: IOPAMIDOL-300 100 ML VIAL ONE (09:57)
[2017-05-16] MEDS ORDERED: IOPAMIDOL-300 50 ML VIAL ONE (09:57)
--- NOTE | 2017-05-16 13:49 | CT Report ---
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 COMPARISON: CT 12/20/2013. TECHNIQUE: Axial CT images of the abdomen and pelvis were obtained with 80 mL Isovue 300 intravenously as well as oral contrast. FINDINGS: Limited evaluation of the lung bases demonstrates mild fibrosis with peripheral honeycombing. ABDOMEN: The liver, spleen, pancreas, kidneys and adrenal glands appear unremarkable. The patient is status post cholecystectomy. No bowel dilatation, free gas, or free fluid is present. No abdominal adenopathy is seen. PELVIS: Imaging of the lower pelvis is limited by streak artifact from the patient's right hip replacement. No definite adenopathy or mass is appreciated. No pelvic adenopathy or free fluid is seen. Osseous structures demonstrate degenerative and postsurgical changes. IMPRESSION: NO DEFINITE EVIDENCE OF MALIGNANCY WITHIN THE ABDOMEN OR PELVIS. CT DOSE REDUCTION STATEMENT In accordance with CT protocol optimization, one or more of the following dose reduction techniques were utilized for this exam: automated exposure control, adjustment of mA and/or KV based on patient size, or use of iterative reconstructive technique. TD: 05/16/2017 13:49
[2017-05-16] MEDS ORDERED: IOPAMIDOL-300 50 ML VIAL PO ONE (15:09)
[2017-05-16] MEDS ORDERED: IOPAMIDOL-300 100 ML VIAL IVP ONE (15:09)
== END 2017-05-16 09:33 | disposition home or self-care (01) ==
LOC: DI 09:32
PROVIDERS: ATTEND Physician Assistant
DX: L82.1 Other seborrheic keratosis (principal)
CPT/HCPCS: 74177; Q9967

== ENCOUNTER 2017-05-17 08:00 | Outpatient (CLI) | payer MEDICARE, OTHER | END 2017-05-17 08:01 | disposition home or self-care (01) | LOC: LAB.R 08:00 | PROVIDERS: ATTEND Physician Assistant | DX: L82.0 Inflamed seborrheic keratosis (principal) | CPT/HCPCS: 81599; 83497 ==

== ENCOUNTER 2017-06-01 20:33 | Emergency (ER) | payer MEDICARE, OTHER ==
--- NOTE | 2017-06-01 21:04 | ED Physician Documentation ---
PD HPI DYSPNEA - Stated complaint Stated Complaint: SOA/FEVER - Chief complaint Chief Complaint: Fever - History obtained from History obtained from: Patient - History of Present Illness Timing - onset: How many weeks ago (2) Timing - onset during: Rest Timing - details: Gradual onset, Still present Inciting event(s): URI Worsened by: Exertion, Laying flat Associated symptoms: Fever, Cough, Wheezing Similar symptoms before: Work up / diagnostics Recently seen: Clinic - Additional information Additional information: Patient is an 87 year old female with a history of copd and asthma who is presenting to the emergency department for cough, shortness of breath and fever. patient states that the symptoms have been going on for the last 3 weeks or so. patient states that she noticed a low grade fever again. patient reports that the has had pneumonia in the past and ended up in the icu so did't want to wait to long. Review of patient's notes reveal that she was seen in the heme onc clinic about three weeks ago and was found to have stable ground glass opacity. Review of Systems Constitutional: reports: Fever. denies: Chills Eyes: reports: Reviewed and negative Nose: denies: Rhinorrhea / runny nose, Congestion Cardiac: denies: Chest pain / pressure Respiratory: reports: Cough, Wheezing GI: denies: Nausea, Vomiting Skin: denies: Rash, Lesions Musculoskeletal: denies: Extremity swelling Neurologic: denies: Generalized weakness, Focal weakness Endocrine: reports: Weight loss Immunocompromised: denies: Immunocompromised, Chemotherapy PD PAST MEDICAL HISTORY - Past Medical History Past Medical History: Yes Cardiovascular: Arrhythmia Respiratory: COPD, Pneumonia Neuro: None Endocrine/Autoimmune: None GI: GERD, Hiatal hernia : Other HEENT: None Psych: None Musculoskeletal: Osteoarthritis, Osteoporosis Derm: Eczema, Psoriasis, Other - Past Surgical History Past Surgical History: Yes General: Cholecystectomy, Colonoscopy, EGD Ortho: Hip replacement, 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, Other Cardiovascular: Other HEENT: Cataracts Derm: Skin cancer surgery - Present Medications Home Medications: Ambulatory Orders Medication Instructions Recorded Confirmed Acetaminophen 650 mg PO BID 07/20/16 05/11/17 Calcium Carbonate/Vitamin D3 2 tab PO DAILY 07/20/16 05/11/17 [Calcium 600-Vit D3 400 Tablet] Multivitamin [Theragran] 1 tab PO DAILY 07/20/16 05/11/17 Albuterol Sulfate [Proair Hfa 2 puffs INH DAILY 04/20/17 05/11/17 Inhaler] Biotin 1 cap PO BID 04/20/17 05/11/17 Triamcinolone 0.1% Cream [Kenalog 1 applic TOP DAILY 04/20/17 05/11/17 0.1% Cream] diphenhydrAMINE [Benadryl] 1 cap PO DAILY 04/20/17 05/11/17 Omeprazole 1 cap PO DAILY 05/11/17 05/11/17 Azithromycin [Zithromax] 250 mg PO DAILY #4 tablet 06/01/17 - Allergies Allergies/Adverse Reactions: Allergies Allergy/AdvReac Type Severity Reaction Status Date / Time shrimp Allergy Severe Anaphylaxis Verified 12/18/16 10:33 ciprofloxacin HCl * Allergy Intermediate Itching Verified 12/18/16 10:33 [From Cipro] Sulfa (Sulfonamide Allergy Mild Respiratory Verified 12/18/16 10:33 Antibiotics) ciprofloxacin [From Cipro] Allergy Itching Verified 12/18/16 10:33 nitrofurantoin Allergy Unknown Verified 12/18/16 10:33 Swcfgip-Ncv-Kwk Reductase Allergy Cramps Verified 06/01/17 20:39 Inhibitor levofloxacin AdvReac Nausea Verified 06/01/17 20:39 metoprolol AdvReac Respiratory Verified 06/01/17 20:39 - Social History Does the pt smoke?: No Smoking Status: Never smoker Does the pt drink ETOH?: Yes Does the pt have substance abuse?: No - Immunizations Immunizations are current?: Yes - POLST Patient has POLST: Yes POLST Status: Full Code PD ED PE NORMAL - Vitals Vital signs reviewed: Yes - General General: Alert and oriented X 3, No acute distress - HEENT HEENT: Atraumatic - Neck Neck: Supple, no meningeal sign, No JVD - Cardiac Cardiac: RRR, No murmur - Abdomen Abdomen: Soft, Non distended - Derm Derm: Normal color, No rash - Extremities Extremities: No deformity, No edema, No calf tenderness / cord - Neuro Neuro: Alert and oriented X 3, No motor deficit, Normal speech Eye Opening: Spontaneous PD ED PE EXPANDED - General General: Alert, Anxious - Respiratory Respiratory: Wheezing (minimal bilateral wheezing) Results - Vitals Vitals: Vital Signs - 24 hr 06/01/17 06/01/17 06/01/17 20:35 21:50 22:04 Temperature 36.7 C 37.5 C Heart Rate 106 H 91 90 Respiratory 20 18 17 Rate Blood Pressure 95/65 82/64 L 99/50 L O2 Saturation 95 99 97 06/01/17 06/01/17 06/01/17 22:17 22:31 22:46 Temperature Heart Rate 90 90 89 Respiratory 18 18 18 Rate Blood Pressure 85/58 L 86/55 L 88/57 L O2 Saturation 95 97 99 06/01/17 06/01/17 06/01/17 22:49 23:02 23:15 Temperature 37.3 C Heart Rate 93 103 H Respiratory 17 Rate Blood Pressure 89/65 L 85/72 L O2 Saturation 99 06/01/17 06/01/17 23:22 23:40 Temperature Heart Rate 92 93 Respiratory 22 20 Rate Blood Pressure 90/59 L 105/82 H O2 Saturation 97 98 Oxygen O2 Source [] Room air O2 Source Room air - Labs Labs: Laboratory Tests 06/01/17 06/01/17 06/01/17 21:00 21:00 21:00 WBC 16.9 H RBC 3.41 L Hgb 10.6 L Hct 32.7 L MCV 95.8 MCH 31.0 MCHC 32.4 RDW 13.2 Plt Count 286 MPV 7.5 L Neut # 13.9 H Lymph # 0.9 L [place] # 1.3 H Eos # 0.9 H Baso # 0.1 Absolute Nucleated RBC 0.00 Nucleated RBC % 0.0 Sodium 131 L Potassium 4.3 Chloride 101 Carbon Dioxide 22 Anion Gap 8.0 BUN 27 H Creatinine 1.5 H Estimated GFR (MDRD) 33 L Glucose 130 H Lactic Acid Calcium 9.1 Total Bilirubin 0.3 AST 22 ALT 17 Alkaline Phosphatase 52 B-Natriuretic Peptide 246 H Total Protein 7.2 Albumin 3.7 Globulin 3.5 Albumin/Globulin Ratio 1.1 Lipase 110 H 06/01/17 22:38 WBC RBC Hgb Hct MCV MCH MCHC RDW Plt Count MPV Neut # Lymph # [place] # Eos # Baso # Absolute Nucleated RBC Nucleated RBC % Sodium Potassium Chloride Carbon Dioxide Anion Gap BUN Creatinine Estimated GFR (MDRD) Glucose Lactic Acid 0.7 Calcium Total Bilirubin AST ALT Alkaline Phosphatase B-Natriuretic Peptide Total Protein Albumin Globulin Albumin/Globulin Ratio Lipase - Rads (name of study) chest x-ray Radiology: Final report received (increased size of opacity, no definitive infiltrate appreciated) PD MEDICAL DECISION MAKING - ED course Complexity details: reviewed old records, reviewed results, re-evaluated patient , considered differential, d/w patient, d/w family ED course: Patient was seen and examined at bedside. IV access was gained and labs were drawn. chest x-ray was ordered. Patient was found to have a mild leukocytosis. Patient was started on emperic antibiotics and treated with a liter of fluid. Patient's blood pressure remained borderline. patient attempted to ambulate but became mildly dizzy. Case was discussed with the hospitalist and the patient was offered admission. Patient stated that she did not want to stay. The risks of leaving as well as detailed follow up instructions were given to the patient and her . The patient signed out AMA. Departure - Departure Disposition: Against Medical Advice Clinical Impression: CAP (community acquired pneumonia) Condition: Good Instructions: ED Pneumonia Adult Follow-Up: Reji Baeza MD [Primary Care Provider] - Tomorrow Prescriptions: Azithromycin [Zithromax] 250 mg PO DAILY #4 tablet Comments: You are being covered for pneumonia. You had your first dose of antibiotics today and you will need to take a dose for the next 4 days. You should follow up with your doctor this week for re-evaluation. I understand you want to go home but you will need to return for worsening symptoms. Discharge Date/Time: 06/01/17 23:42
[2017-06-01 21:08] LABS: BASOPHILS # (AUTO) 0.1 10^3/uL (0.0-0.1); BASOPHILS % (AUTO) 0.4 %; EOSINOPHILS # (AUTO) 0.9 10^3/uL (0.0-0.7); HGB - HEMOGLOBIN 10.6 g/dL (12.0-16.0); LYMPHOCYTES # (AUTO) 0.9 10^3/uL (1.5-3.5); LYMPHOCYTES % (AUTO) 5.1 %; MEAN CORPUSCULAR HGB CONC 32.4 g/dL (32.0-36.0); MEAN CORPUSCULAR VOLUME 95.8 fL (81.0-99.0); MEAN PLATELET VOLUME 7.5 fL (7.9-10.8); MONOCYTES # (AUTO) 1.3 10^3/uL (0.0-1.0); MONOCYTES % (AUTO) 7.7 %; NEUTROPHILS # (AUTO) 13.9 10^3/uL (1.5-6.6); NEUTROPHILS % (AUTO) 81.8 %; PLT - PLATELET COUNT 286 10^3/uL (130-450); RED BLOOD COUNT 3.41 10^6/uL (4.20-5.40); RED CELL DISTRIBUTION WIDTH 13.2 % (12.0-15.0); WHITE BLOOD COUNT 16.9 x10^3/uL (4.8-10.8)
[2017-06-01 21:22] LABS: ALBUMIN 3.7 g/dL (3.2-5.5); ALBUMIN/GLOBULIN RATIO 1.1 (1.0-2.2); BILIRUBIN,TOTAL 0.3 mg/dL (0.2-1.0); CALCIUM 9.1 mg/dL (8.5-10.3); CREATININE 1.5 mg/dL (0.4-1.0); TOTAL PROTEIN 7.2 g/dL (6.7-8.2)
--- NOTE | 2017-06-01 21:34 | XRAY Report ---
EXAM: CHEST RADIOGRAPHY EXAM DATE: 06/01/2017 09:14 PM. CLINICAL HISTORY: Fever, cough. COMPARISON: Chest 03/31/2017. TECHNIQUE: 2 views. FINDINGS: Lungs/Pleura: Left upper lobe 8 x 16 mm pulmonary nodule, appears mildly increased and more dense com pared to the prior exam, could represent a malignant pulmonary nodule. No pleural effusion, consolida tion or pneumothorax. Mediastinum: Normal heart size. Mitral annular calcification. IMPRESSION: Left upper lobe 8 x 16 mm pulmonary nodule, appears mildly increased and more dense junior red to the prior exam, could represent a malignant pulmonary nodule. See above. [facility] Referring Provider Line: [phone] SITE ID: [id number]
--- NOTE | 2017-06-01 21:34 | XRAY Preliminary Report ---
Exam: XR CHEST 2 VIEW X-RAY IMPRESSION: Left upper lobe 8 x 16 mm pulmonary nodule, appears mildly increased and more dense junior red to the prior exam, could represent a malignant pulmonary nodule. See above. [facility] SITE ID: [id number]
[2017-06-01] MEDS: AZITHROMYCIN INJ 500 MG in SODIUM CHLORIDE 0.9% 250 ML IV STA (22:04)
[2017-06-01] MEDS: SODIUM CHLORIDE 0.9% 1,000 ML IV ONE (22:09)
[2017-06-01 23:44] VITALS: BP 105/82
== END 2017-06-01 23:42 | disposition left against medical advice (07) ==
LOC: ED 20:33
DX: J18.9 Pneumonia, unspecified organism (principal); Z96.649 Presence of unspecified artificial hip joint
CPT/HCPCS: 36415; 71046; 80053; 83605; 83690; 83880; 85025; 87040; 96365; 99284

== ENCOUNTER 2017-06-16 15:25 | Outpatient (CLI) | payer MEDICARE, OTHER | END 2017-06-16 15:26 | disposition home or self-care (01) | LOC: RT 15:25 | PROVIDERS: ATTEND Internal Medicine | DX: R06.00 Dyspnea, unspecified (principal) | CPT/HCPCS: 94010 ==

== ENCOUNTER 2017-10-11 11:15 | Day surgery (SDC) | payer MEDICARE, OTHER ==
[2017-10-11] MEDS ORDERED: ceFAZolin 2 GM/50 ML 2 GM/50 ML BAG IV ONE (11:26)
[2017-10-11] MEDS ORDERED: LACTATED RINGERS 1,000 ML IV ONE (11:49)
--- NOTE | 2017-10-11 13:30 | ANESTHESIA ---
Pre-Anesthesia VS, & Labs - Diagnosis giant cell arteritis - Procedure temporal artery biopsy Vital Signs: Temp Pulse Resp BP Pulse Ox 36.7 C 16 144/7 H 95 10/11/17 11:30 10/11/17 11:30 10/11/17 11:30 10/11/17 11:30 HR 70 Height 5 ft 3 in Weight (kg) 48.2 kg Body Mass Index 18.8 - NPO >8 hours - Is Patient ?: Not Applicable Home Medications and Allergies Home Medications: Ambulatory Orders Medication Instructions Recorded Confirmed Acetaminophen 650 mg PO BID PRN 07/20/16 10/11/17 Calcium Carbonate/Vitamin D3 1 tab PO BID 07/20/16 10/11/17 [Calcium 600-Vit D3 400 Tablet] Multivitamin [Theragran] 1 tab PO DAILY 07/20/16 10/11/17 Biotin 1 cap PO DAILY 04/20/17 10/11/17 diphenhydrAMINE [Benadryl] 1 cap PO DAILY PRN 04/20/17 10/11/17 Omeprazole 1 cap PO BID 05/11/17 10/11/17 Cyanocobalamin (Vitamin B-12) 1,000 tab PO DAILY 10/11/17 10/11/17 [Vitamin B-12] Zinc 50 tab PO DAILY 10/11/17 10/11/17 predniSONE [Prednisone] 20 tab PO TID 10/11/17 10/11/17 Allergies/Adverse Reactions: Allergies Allergy/AdvReac Type Severity Reaction Status Date / Time shrimp Allergy Severe Anaphylaxis Verified 10/11/17 12:03 ciprofloxacin HCl * Allergy Intermediate Itching Verified 10/11/17 12:03 [From Cipro] Sulfa (Sulfonamide Allergy Mild Respiratory Verified 10/11/17 12:03 Antibiotics) amoxicillin Allergy Unknown Verified 10/11/17 12:08 ciprofloxacin [From Cipro] Allergy Itching Verified 10/11/17 12:03 nitrofurantoin Allergy Unknown Verified 10/11/17 12:03 Tvzwvry-Csg-Iaw Reductase Allergy Cramps Verified 10/11/17 12:03 Inhibitor levofloxacin AdvReac Nausea Verified 10/11/17 12:03 metoprolol AdvReac Respiratory Verified 10/11/17 12:03 Anes History & Medical History - Anesthetic History Anesthesia Complications: reports: No previous complications - Medical History Cardiovascular: reports: Arrhythmia (tachy per patient) Pulmonary: reports: COPD, Pneumonia Gastrointestinal: reports: GERD, Hiatal hernia Urinary: reports: Other Neuro: reports: None Musculoskeletal: reports: Osteoarthritis, Osteoporosis Endocrine/Autoimmune: reports: None Blood Disorders: reports: Anemia Skin: reports: Eczema, Psoriasis, Other Smoking Status: Former smoker - Surgical History General: Cholecystectomy, Appendectomy, Colonoscopy, EGD Eyes Ears Nose Throat (EENT): Cataracts Cardiothoracic: Other Gynecologic: Tubal ligation, Other Orthopedic: Hip replacement, Other Dermatologic: Skin cancer surgery Exam General: Alert Dental: Partials Lower Mouth Openin Fingerbreadth Neck Mobility: Normal Mallampati classification: II Respiratory: Lungs clear Cardiovascular: Regular rate Mental/Cognitive Status: Alert/Oriented X3 Plan Anesthesia Type: MAC Consent for Procedure(s) Verified and Reviewed: No Code Status: Attempt Resuscitation ASA classification: 2-Mild systemic disease Is this case an emergency?: No
[2017-10-11] MEDS ORDERED: MIDAZOLAM 2 MG/2 ML VIAL IVP ONE (14:30)
[2017-10-11] MEDS ORDERED: LIDOCAINE-MPF 2% 5 ML VIAL IM ONE (14:30)
[2017-10-11] MEDS ORDERED: PROPOFOL 200 MG/20 ML VIAL IVP ONE (14:30)
[2017-10-11] MEDS ORDERED: BUPIVACAINE 0.5% PF 30 ML VIAL SUBQ ONE ×3 (14:41→15:35)
[2017-10-11] MEDS ORDERED: BUPIVACAINE 0.5% PF 10 ML VIAL ONE (14:44)
--- NOTE | 2017-10-11 15:01 | CONSULTATION NOTE ---
Referring Provider Name of Referring Provider:: Dr. Reji Baeza Consult Date: 10/11/17 Chief Complaint - Chief Complaint Chief Complaint: Intermittent diplopia and right temporal tenderness History of Present Illness - Admitted From Admitted From:: [facility]'s medication care manager unit - History Obtained From Records Reviewed: Yes History obtained from: Patient and chart Exam Limitations: None - History of Present Illness HPI Comment/Other: Dr. Reji Baeza initially sent is very pleasant 87-year-old female to [facility] for evaluation of intermittent diplopia and the patient was then referred back to my office in order to have a temporal artery biopsy to rule out the possibility of giant cell arteritis. The patient states that she has had symptoms for the better part of the year has been and is currently on steroids. The steroids did not clear up her skin issues. She has not had any recurrent episodes of diplopia but she did have one episode of eye pain just answering my questions. Her was at her bedside. She was evaluated in bed at [facility]'s amatory care unit. History - Past Medical History Cardiovascular: reports: Arrhythmia (tachy per patient) Respiratory: reports: COPD, Pneumonia Neuro: reports: None Endocrine/Autoimmune: reports: None GI: reports: GERD, Hiatal hernia : reports: Other HEENT: reports: None Psych: reports: None Musculoskeletal: reports: Osteoarthritis, Osteoporosis Derm: reports: Eczema, Psoriasis, Other MRSA Hx?: No - Past Surgical History General: reports: Cholecystectomy, Appendectomy, Colonoscopy, EGD Ortho: reports: Hip replacement, Other /[employer]: reports: Tubal ligation, Other Cardiovascular: reports: Other HEENT: reports: Cataracts Derm: reports: Skin cancer surgery - POLST Patient has POLST: Yes POLST Status: Full Code Meds/Allgy - Home Medications Home Medications: Ambulatory Orders Medication Instructions Recorded Confirmed Acetaminophen 650 mg PO BID PRN 07/20/16 10/11/17 Calcium Carbonate/Vitamin D3 1 tab PO BID 07/20/16 10/11/17 [Calcium 600-Vit D3 400 Tablet] Multivitamin [Theragran] 1 tab PO DAILY 07/20/16 10/11/17 Biotin 1 cap PO DAILY 04/20/17 10/11/17 diphenhydrAMINE [Benadryl] 1 cap PO DAILY PRN 04/20/17 10/11/17 Omeprazole 1 cap PO BID 05/11/17 10/11/17 Cyanocobalamin (Vitamin B-12) 1,000 tab PO DAILY 10/11/17 10/11/17 [Vitamin B-12] Zinc 50 tab PO DAILY 10/11/17 10/11/17 predniSONE [Prednisone] 20 tab PO TID 10/11/17 10/11/17 - Allergies Allergies/Adverse Reactions: Allergies Allergy/AdvReac Type Severity Reaction Status Date / Time shrimp Allergy Severe Anaphylaxis Verified 10/11/17 12:03 ciprofloxacin HCl * Allergy Intermediate Itching Verified 10/11/17 12:03 [From Cipro] Sulfa (Sulfonamide Allergy Mild Respiratory Verified 10/11/17 12:03 Antibiotics) amoxicillin Allergy Unknown Verified 10/11/17 12:08 ciprofloxacin [From Cipro] Allergy Itching Verified 10/11/17 12:03 nitrofurantoin Allergy Unknown Verified 10/11/17 12:03 Nzoklft-Vri-Hom Reductase Allergy Cramps Verified 10/11/17 12:03 Inhibitor levofloxacin AdvReac Nausea Verified 10/11/17 12:03 metoprolol AdvReac Respiratory Verified 10/11/17 12:03 Review of Systems - Constitutional Constitutional: denies: Fatigue, Fever, Chills, Malaise - Eyes Eyes: reports: Dipolpia (Correct spelling is diplopia.), Other (Right temporal tenderness) - Cardiovascular Cariovascular: denies: Irregular heart rate, Palpitations, Chest pain - Respiratory Respiratory: denies: Cough, Sputum production - Gastrointestinal Gastrointestinal: denies: Abdominal pain - Genitourinary Genitourinary: denies: Dysuria - Musculoskeletal Musculoskeletal: denies: Muscle pain, Back pain - Integumentary Integumentary: reports: Other (Skin condition clears with taking steroids.) - Neurological Neurological: denies: General weakness, Focal weakness Exam - Vital Signs Reviewed Vital Signs: Yes Vital Signs: Vital Signs x48h Temp Resp BP Pulse Ox 10/11/17 11:30 36.7 C 16 144/7 H 95 - Physical Exam General Appearance: positive: No acute distress Eyes Bilateral: positive: No lid inflammation, Conjunctivae nml, No scleral icterus ENT: positive: Dry mucous membranes Neck: positive: Trachea midline Respiratory: positive: Chest non-tender, No respiratory distress, Breath sounds nml Cardiovascular: positive: Regular rate & rhythm Abdomen: positive: Non-tender, No distention Skin: positive: No rash, Warm, Dry Extremities: positive: Nml appearance Neurologic/Psychiatric: positive: Oriented x3 Conclusion/Plan - Diagnosis Diagnosis: Occasional diplopia with right hoahaoism tenderness - Plan Plan: Right temporal artery biopsy. The indications, procedure, alternatives including not performing the surgery, and risks including but not limited to infection, bleeding, nerve injury, and were fully explained to the patient and all questions were fully answered. I explained that 1 of the benefits of performing the surgery would be that she would not necessarily need to take steroids with all of the potential complications of steroids. If she were determined to have giant cell arteritis she is already on treatment and she vocalized an understanding. Verbal and written consent was obtained. The patient in preparation for her surgery has been nothing by mouth, receive a soap water shower, and receive 2 g of Ancef preoperatively for prophylaxis against surgical infection. I also asked the patient to let me know if there is any way we can make her stay at [facility] more comfortable and she stated that she would let me know. 30 minutes of [id number] time was spent with the patient and her husbandwith over 80% spent in discussion, coordination of her care and completion of the requisite paperwork Dulceon disclaimer: This document was created in part using voice recognition technology. Because of the inherent limitations of the system ([employer]'s [employer] Dict[employer] user manual states that the licensee understands that speech recognition is a statistical process and that recognition errors are inherent in the process), occasional same sounding word substitutions and grammatical errors do occur and persist despite proofreading. Please read this document for context. - Lab Results Lab results reviewed: Yes
[2017-10-11] MEDS ORDERED: BACITRACIN OINT TOP ONE (15:39)
--- NOTE | 2017-10-11 15:57 | OPERATIVE REPORT ---
Operative Report - General Procedure Date: 10/11/17 Planned Procedure: RIGHT temporal artery biopsy Pre-Op Diagnosis: Transient diplopia and RIGHT temporal tenderness Procedure Performed: RIGHT temporal artery biopsy Post Op Diagnosis: Same - Procedure Note Primary Surgeon: Fantasma Beck MD Anesthesia Provider: Reji Smith CRNA Anesthesia Technique: Local (3 mL 1/2% marcaine), MAC IV Fluids (mL): 400 Estimated Blood Loss (mL): 1 Complications: None. - Other Other Information/Narrative: OPERATIVE DESCRIPTION/REPORT: After verbal and written informed consent was obtained detailing the risks of infection, bleeding requiring transfusion with its risks, nerve injury, and , and after I met with the patient confirming the surgery and the site of the surgery and after initialing the site of the surgery with a surgical marker , the patient was brought to the operative suite and placed supine on the operating table. Great care was taken to avoid pressure points to prevent pressure necrosis or nerve injury. Monitoring devices were applied along with TEDs and pneumatic compressive stockings (to prevent DVT). The patient received preoperative antibiotics for surgical prophylaxis. Reji Smith CRNA sedated and anesthetized the patient for the entire procedure. The patient was prepped and draped in the usual sterile manner. With the patient draped my initials were clearly visible. A "time in" then confirmed that the patient was identified with 3 identifiers (name, date and medical record number), the history and physical was in the chart, the signed consent confirming the procedure was in the chart, the patient was in the correct position, the aforementioned prophylactic measures were in place or given, we had the correct personnel and equipment to complete the procedure and that anesthesia, surgery and nursing were given an opportunity to express any concerns. With the agreement of everyone in the room, we proceeded with the operation. After anesthetizing the overlying skin with 3 mL of half percent Marcaine, a curvilinear incision was made slightly superior and anterior to the RIGHT ear where I had marked the site and overlying the temporal artery that had been found preoperatively with ultrasound. Dissection down to the artery was completed using a combination of blunt dissection with a Khushbu as well as sharp dissection with Metzenbaum scissors. The artery is defined for a length of approximately 1.2 cm. A 3-0 Vicryl tie was placed proximally and distally and the intervening artery cut and removed. There was no bleeding. The specimen was then sent in formalin for pathologic evaluation. Hemostasis was obtained using Bovie electrocautery. The subcutaneous tissues were approximated using an interrupted 3-0 Vicryl. The skin incision was approximated with 4-0 Monocryl in a subcuticular fashion. The skin was prepped with benzoin and steristrips were applied. At this point a time out was performed that confirmed that all the counts were correct, the procedure that was performed, the blood loss, the IV fluids administered, and the patients condition. A dressing was then applied. Having tolerated the procedure well, the patient was taken to short stay in good and stable condition.
[2017-10-11 16:05] VITALS: BP 125/69
== END 2017-10-11 11:16 | disposition home or self-care (01) ==
LOC: SDS 11:15
PROVIDERS: ATTEND Surgery
PROC: 03BS0ZX Excision of Right Temporal Artery, Open Approach, Diagnostic (ICD-10-PCS; principal; 2017-10-11 12:45)
DX: R51 Headache (principal); H53.2 Diplopia; J44.9 Chronic obstructive pulmonary disease, unspecified; K21.9 Gastro-esophageal reflux disease without esophagitis; K44.9 Diaphragmatic hernia without obstruction or gangrene; Z87.01 Personal history of pneumonia (recurrent); Z87.891 Personal history of nicotine dependence
CPT/HCPCS: 37609; A9270; J0690; J7120; 88305; 88313

== ENCOUNTER 2017-10-18 14:10 | Inpatient (IN) | payer MEDICARE, OTHER ==
--- NOTE | 2017-10-18 14:39 | ED Physician Documentation ---
PD HPI CHEST PAIN - Stated complaint Stated Complaint: FAST HEART/SENT BY DOC - History obtained from History obtained from: Patient - History of Present Illness Timing - onset: How many days ago (She been feeling sick with some weakness and dyspnea for the past couple of days. She felt some nausea and chills. She did not have any vomiting or diarrhea. No cough or head cold symptoms. She went to her primary care this morning and was found to have atrial fibrillation with a heart rate approximately 110-120. She is referred to the ER for further evaluation. The patient states she did not notice the irregular or fast heart rate and was not having any chest pain per se. She has a remote history of atrial fibrillation with an ablation 5-6 years ago done in [facility] and had not had any episodes that she is aware of up to this time.) Timing - onset during: Light activity Timing - details: Gradual onset, Other (She is not having chest pain per se. She does not feel the palpitations. She has been having a feeling of some dyspnea and general weakness for several days with hematuria and lower abdominal pain and flank pain. She has had some fever and chills feeling subjectively.) Associated symptoms: Shortness of air, Nausea, General Weakness. No: Diaphoresis, Vomiting, Palpitations, Cough Recently seen: Clinic (Seen in the office with the above symptoms and was noted to be in atrial fibrillation with a rate 110-120. She was sent to the ER for further evaluation.) Review of Systems Constitutional: reports: Chills, Myalgias (for few days). denies: Fever Nose: denies: Rhinorrhea / runny nose, Congestion Throat: denies: Sore throat Cardiac: denies: Chest pain / pressure, Palpitations Respiratory: denies: Dyspnea, Cough GI: reports: Abdominal Pain (lower), Nausea. denies: Vomiting, Diarrhea : reports: Dysuria, Frequency, Hematuria (today) Skin: denies: Rash, Lesions Neurologic: reports: Generalized weakness, Near syncope. 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 ligation, Other Cardiovascular: Other HEENT: Cataracts Derm: Skin cancer surgery - Present Medications Home Medications: Ambulatory Orders Medication Instructions Recorded Confirmed Acetaminophen 650 mg PO BID PRN 07/20/16 10/12/17 Calcium Carbonate/Vitamin D3 1 tab PO BID 07/20/16 10/12/17 [Calcium 600-Vit D3 400 Tablet] Multivitamin [Theragran] 1 tab PO DAILY 07/20/16 10/12/17 Biotin 1 cap PO DAILY 04/20/17 10/12/17 Omeprazole 1 cap PO BID 05/11/17 10/12/17 Cyanocobalamin (Vitamin B-12) 1,000 tab PO DAILY 10/11/17 10/12/17 [Vitamin B-12] Zinc 50 tab PO DAILY 10/11/17 10/12/17 predniSONE [Prednisone] 20 tab PO TID 10/11/17 10/12/17 - Allergies Allergies/Adverse Reactions: Allergies Allergy/AdvReac Type Severity Reaction Status Date / Time shrimp Allergy Severe Anaphylaxis Verified 10/18/17 14:45 ciprofloxacin HCl * Allergy Intermediate Itching Verified 10/18/17 14:45 [From Cipro] Sulfa (Sulfonamide Allergy Mild Respiratory Verified 10/18/17 14:45 Antibiotics) amoxicillin Allergy Unknown Verified 10/18/17 14:45 ciprofloxacin [From Cipro] Allergy Itching Verified 10/18/17 14:45 nitrofurantoin Allergy Unknown Verified 10/18/17 14:45 Ngnpfxz-Tzo-Xfi Reductase Allergy Cramps Verified 10/18/17 14:45 Inhibitor levofloxacin AdvReac Nausea Verified 10/18/17 14:45 metoprolol AdvReac Respiratory Verified 10/18/17 14:45 - Social History Does the pt smoke?: No Smoking Status: Former smoker Does the pt drink ETOH?: Yes Does the pt have substance abuse?: No - Family History Family history: reports: Non contributory - Immunizations Immunizations are current?: Yes - POLST Patient has POLST: Yes POLST Status: Full Code PD ED PE NORMAL - Vitals Vital signs reviewed: Yes - General General: Alert and oriented X 3, Well developed/nourished, Other (anxious initially) - HEENT HEENT: Pharynx benign - Neck Neck: Supple, no meningeal sign, No adenopathy, No JVD - Cardiac Cardiac: No: RRR (irregular and rate 110-120) - Respiratory Respiratory: Clear bilaterally - Abdomen Abdomen: Normal bowel sounds, Soft, Non distended, Other (some tenderness suprapubic) - Female Female : Deferred - Rectal Rectal: Deferred - Back Back: Other (mild CVA tender both sides. ) - Derm Derm: Normal color, Warm and dry, No rash - Extremities Extremities: No deformity, Normal ROM s pain, No edema - Neuro Neuro: Alert and oriented X 3, No motor deficit, Normal speech Results - Vitals Vitals: Vital Signs - 24 hr 10/18/17 10/18/17 10/18/17 14:13 15:45 15:50 Temperature 36 C L Heart Rate 124 H 107 H 86 Respiratory 16 17 16 Rate Blood Pressure 104/63 127/80 96/56 L O2 Saturation 95 100 100 10/18/17 10/18/17 10/18/17 15:52 16:08 17:34 Temperature Heart Rate 85 86 93 Respiratory 17 16 17 Rate Blood Pressure 96/57 L 101/65 120/85 H O2 Saturation 99 99 99 10/18/17 10/18/17 17:49 18:56 Temperature Heart Rate 101 H 100 Respiratory 17 16 Rate Blood Pressure 106/72 107/70 O2 Saturation 98 100 Oxygen O2 Source [With Activity] Room air O2 Source Nasal cannula - Labs Labs: Laboratory Tests 10/18/17 10/18/17 10/18/17 14:46 14:46 14:46 WBC 18.9 H RBC 3.69 L Hgb 11.9 L Hct 36.7 L MCV 99.5 H MCH 32.1 H MCHC 32.2 RDW 16.2 H Plt Count 264 MPV 8.8 Neut # (Auto) 17.6 H Lymph # (Auto) 0.2 L Green # (Auto) 0.9 Eos # (Auto) 0.0 Baso # (Auto) 0.1 Absolute Nucleated RBC 0.00 Nucleated RBC % 0.0 Sodium 132 L Potassium 4.2 Chloride 104 Carbon Dioxide 19 L Anion Gap 9.0 BUN 46 H Creatinine 1.4 H Estimated GFR (MDRD) 35 L Glucose 210 H Calcium 8.9 Magnesium 2.4 Total Bilirubin 0.3 AST 40 ALT 41 Alkaline Phosphatase 50 B-Natriuretic Peptide Total Protein 6.8 Albumin 3.5 Globulin 3.3 Albumin/Globulin Ratio 1.1 Lipase 65 H Urine Color Urine Clarity Urine pH Ur Specific Pollock Urine Protein Urine Glucose (UA) Urine Ketones Urine Occult Blood Urine Nitrite Urine Bilirubin Urine Urobilinogen Ur Leukocyte Esterase Urine RBC Urine WBC Ur Squamous Epith Cells Urine Bacteria Ur Microscopic Review Urine Culture Comments 10/18/17 10/18/17 14:46 15:54 WBC RBC Hgb Hct MCV MCH MCHC RDW Plt Count MPV Neut # (Auto) Lymph # (Auto) Green # (Auto) Eos # (Auto) Baso # (Auto) Absolute Nucleated RBC Nucleated RBC % Sodium Potassium Chloride Carbon Dioxide Anion Gap BUN Creatinine Estimated GFR (MDRD) Glucose Calcium Magnesium Total Bilirubin AST ALT Alkaline Phosphatase B-Natriuretic Peptide 863 H Total Protein Albumin Globulin Albumin/Globulin Ratio Lipase Urine Color YELLOW Urine Clarity CLOUDY Urine pH 6.5 Ur Specific Pollock <=1.005 Urine Protein TRACE Urine Glucose (UA) NEGATIVE Urine Ketones NEGATIVE Urine Occult Blood SMALL H Urine Nitrite NEGATIVE Urine Bilirubin NEGATIVE Urine Urobilinogen 0.2 (NORMAL) Ur Leukocyte Esterase LARGE H Urine RBC 0-5 Urine WBC >25 H Ur Squamous Epith Cells RARE Squamous Urine Bacteria Moderate H Ur Microscopic Review INDICATED Urine Culture Comments INDICATED PD MEDICAL DECISION MAKING - ED course Complexity details: re-evaluated patient (She is still feeling weak and having some chest pain sharp starting when got up to bathroom. I discussed with her hospitalization. She would prefer home but sees the rationale for hospitalization. ), considered differential (Her heart rate is slow down with just 10 mg of diltiazem and is in the 80-90 range. Her blood pressure is adequate and improved with a little IV fluids. She does have an elevated white count and signs of UTI. I think this is the main part of her general weakness and nausea over the last few days. It is unclear when the start of the atrial fibrillation was. This may have been going on for a longer duration. She is improved with some IV fluids and given IV antibiotics here. However she walked to the bathroom was still feeling generally weak with some dyspnea. I will talk to the hospitalist about her.), d/w patient, d/w [facility] consultant (Dr. Vigil - start PO calcium ilda, anticoag if not contraindicated if persists fib, follow up in office regarding the fib aspect. ), other (Hospitlaist) - Sepsis Event Vital Signs: Vital Signs - 24 hr 10/18/17 10/18/17 10/18/17 14:13 15:45 15:50 Temperature 36 C L Heart Rate 124 H 107 H 86 Respiratory 16 17 16 Rate Blood Pressure 104/63 127/80 96/56 L O2 Saturation 95 100 100 10/18/17 10/18/17 10/18/17 15:52 16:08 17:34 Temperature Heart Rate 85 86 93 Respiratory 17 16 17 Rate Blood Pressure 96/57 L 101/65 120/85 H O2 Saturation 99 99 99 10/18/17 10/18/17 17:49 18:56 Temperature Heart Rate 101 H 100 Respiratory 17 16 Rate Blood Pressure 106/72 107/70 O2 Saturation 98 100 Oxygen O2 Source [With Activity] Room air O2 Source Nasal cannula Departure - Departure Disposition: [facility] DC/Xfer Clinical Impression: Atrial fibrillation with rapid ventricular response, General weakness UTI (urinary tract infection) Qualifiers: Urinary tract infection type: acute pyelonephritis Qualified Code(s): N10 - Acute pyelonephritis Leukocytosis Qualifiers: Leukocytosis type: unspecified Qualified Code(s): D72.829 - Elevated white blood cell count, unspecified Condition: Stable Record reviewed to determine appropriate education?: Yes
[2017-10-18] MEDS ORDERED: SODIUM CHLORIDE 0.9% 1,000 ML IV ONE (15:11)
[2017-10-18] MEDS ORDERED: LORazepam 2 MG/ML VIAL IVP STA (15:13)
[2017-10-18] MEDS ORDERED: diltiaZEM INJ 5 MG/ML VIAL IVP STA (15:13)
[2017-10-18 15:16] LABS: BASOPHILS # (AUTO) 0.1 10^3/uL (0.0-0.1); BASOPHILS % (AUTO) 0.3 %; HGB - HEMOGLOBIN 11.9 g/dL (12.0-16.0); LYMPHOCYTES # (AUTO) 0.2 10^3/uL (1.5-3.5); LYMPHOCYTES % (AUTO) 1.3 %; MEAN CORPUSCULAR HEMOGLOBIN 32.1 pg (27.0-31.0); MEAN CORPUSCULAR HGB CONC 32.2 g/dL (32.0-36.0); MEAN CORPUSCULAR VOLUME 99.5 fL (81.0-99.0); MEAN PLATELET VOLUME 8.8 fL (7.9-10.8); MONOCYTES # (AUTO) 0.9 10^3/uL (0.0-1.0); MONOCYTES % (AUTO) 4.9 %; NEUTROPHILS # (AUTO) 17.6 10^3/uL (1.5-6.6); NEUTROPHILS % (AUTO) 93.5 %; PLT - PLATELET COUNT 264 10^3/uL (130-450); RED BLOOD COUNT 3.69 10^6/uL (4.20-5.40); RED CELL DISTRIBUTION WIDTH 16.2 % (12.0-15.0); WHITE BLOOD COUNT 18.9 x10^3/uL (4.8-10.8)
[2017-10-18 15:35] LABS: ALBUMIN 3.5 g/dL (3.2-5.5); ALBUMIN/GLOBULIN RATIO 1.1 (1.0-2.2); BILIRUBIN,TOTAL 0.3 mg/dL (0.2-1.0); CALCIUM 8.9 mg/dL (8.5-10.3); CREATININE 1.4 mg/dL (0.4-1.0); TOTAL PROTEIN 6.8 g/dL (6.7-8.2)
--- NOTE | 2017-10-18 15:47 | XRAY Report ---
Reason: chest pain Procedure Date: 10/18/2017 Accession Number: [id number] / [id number] Procedure: XR - Chest 2 View X-Ray CPT Code: 25076 FULL RESULT: EXAM: CHEST RADIOGRAPHY EXAM DATE: 10/18/2017 03:09 PM. CLINICAL HISTORY: Chest pain. COMPARISON: 06/01/2017 TECHNIQUE: 2 views. FINDINGS: Lungs/Pleura: Redemonstration of left apical nodule measuring up to 1.2 cm, better seen on CT of 09/08/2017. No dense confluent consolidation, large effusion, or pneumothorax. Elevation of the left hemidiaphragm as before. Mediastinum: Heart and mediastinal contours are unremarkable. Other: None. IMPRESSION: No interval radiographic change. Redemonstration of left apical nodule, demonstrated on recent chest CT to have a solid and surrounding groundglass component. The prior CT appearance is concerning given the growing nodular component. Adenocarcinoma is not excluded. RADIA
[2017-10-18 16:27] LABS: BILIRUBIN,URINE NEGATIVE (NEGATIVE); GLUCOSE, URINE (UA) NEGATIVE (NEGATIVE); KETONES,URINE (UA) NEGATIVE (NEGATIVE); LEUKOCYTE ESTERASE, URINE LARGE (NEGATIVE); NITRITE,URINE NEGATIVE (NEGATIVE); OCCULT BLOOD,URINE SMALL (NEGATIVE); PH,URINE 6.5 PH (5.0-7.5); PROTEIN,URINE TRACE mg/dL (NEGATIVE); UROBILINOGEN,URINE 0.2 (NORMAL) E.U./dL (NORMAL)
[2017-10-18 16:56] LABS: CLARITY,URINE CLOUDY (CLEAR)
[2017-10-18 16:57] LABS: BACTERIA,URINE Moderate /HPF (None Seen); RBC,URINE 0-5 /HPF (0-5); SQUAMOUS EPITHELIAL CELL,UR RARE Squamous (<= Few)
[2017-10-18] MEDS ORDERED: cefTRIAXone 1 GM VIAL IVP STA (17:09)
[2017-10-18] MEDS ORDERED: MORPHINE 2 MG/ML CARPUJECT IVP STA (18:36)
[2017-10-18] MEDS ORDERED: ACETAMINOPHEN 325 MG TABLET PO PRN (22:12)
[2017-10-18] MEDS: SODIUM CHLORIDE FLUSH 0.9% 10 ML SYRINGE IVP SCH (23:59)
[2017-10-19] MEDS ORDERED: ACETAMINOPHEN 325 MG TABLET PO PRN (01:32)
--- NOTE | 2017-10-19 01:41 | HISTORY & PHYSICAL EXAMINATION ---
Chief Complaint - Chief Complaint Chief Complaint: hematuria, tachycardia History of Present Illness - History of Present Illness HPI Comment/Other: Patient is an 87 y/o frail female with a past Hx of atrial fibrillation, s/p ablation who presented to the ED with complain of hematuria. In the ED she was found to be in atrial fibrillation with a rapid ventricular rythm with heart rate 110-120. She reports increased urinary frequency and blood tinged urine about 2 days ago. She has not been feeling well lately and has a poor appetite. She denies chest pain, LUCIUS, abdominal pain, fewer or chills. She was found to have a WBC of 18. A UA obtained in the ED was strongly suggestive of a UTI History - Past Medical History Cardiovascular: reports: Atrial fibrillation, Arrhythmia (tachy per patient) Respiratory: reports: COPD, Pneumonia Neuro: reports: None Endocrine/Autoimmune: reports: None GI: reports: GERD, Hiatal hernia : reports: Other HEENT: reports: None Psych: reports: None Musculoskeletal: reports: Osteoarthritis, Osteoporosis Derm: reports: Eczema, Psoriasis, Other (Polymyalgia rheumatic) MRSA Hx?: No - Past Surgical History General: reports: Cholecystectomy, Appendectomy, Colonoscopy, EGD Ortho: reports: Hip replacement, Other /MUD ANALYSIS [employer]TAIN: reports: Tubal ligation, Other Cardiovascular: reports: Other HEENT: reports: Cataracts Derm: reports: Skin cancer surgery - Substance History Use: Uses substance without health or social issues: NONE - POLST Patient has POLST: Yes POLST Status: Full Code Meds/Allgy - Home Medications Home Medications: Ambulatory Orders Medication Instructions Recorded Confirmed Acetaminophen 650 mg PO BID PRN 07/20/16 10/12/17 Calcium Carbonate/Vitamin D3 1 tab PO BID 07/20/16 10/12/17 [Calcium 600-Vit D3 400 Tablet] Multivitamin [Theragran] 1 tab PO DAILY 07/20/16 10/12/17 Biotin 1 cap PO DAILY 04/20/17 10/12/17 Omeprazole 1 cap PO BID 05/11/17 10/12/17 Cyanocobalamin (Vitamin B-12) 1,000 tab PO DAILY 10/11/17 10/12/17 [Vitamin B-12] Zinc 50 tab PO DAILY 10/11/17 10/12/17 predniSONE [Prednisone] 20 tab PO TID 10/11/17 10/12/17 - Allergies Allergies/Adverse Reactions: Allergies Allergy/AdvReac Type Severity Reaction Status Date / Time shrimp Allergy Severe Anaphylaxis Verified 10/18/17 14:45 ciprofloxacin HCl * Allergy Intermediate Itching Verified 10/18/17 14:45 [From Cipro] Sulfa (Sulfonamide Allergy Mild Respiratory Verified 10/18/17 14:45 Antibiotics) amoxicillin Allergy Unknown Verified 10/18/17 14:45 ciprofloxacin [From Cipro] Allergy Itching Verified 10/18/17 14:45 nitrofurantoin Allergy Unknown Verified 10/18/17 14:45 Gybisyw-Rpc-Cqf Reductase Allergy Cramps Verified 10/18/17 14:45 Inhibitor levofloxacin AdvReac Nausea Verified 10/18/17 14:45 metoprolol AdvReac Respiratory Verified 10/18/17 14:45 Review of Systems - Constitutional Constitutional: reports: Weakness, Poor appetite, Other (frail) - Eyes Eyes: denies: Blurred vision, Field loss, Vision loss - Ears, Nose & Throat Ears, Nose & Throat: reports: Hearing loss. denies: Tinnitus, Nosebleeds, Nasal congestion - Cardiovascular Cariovascular: reports: Irregular heart rate. denies: Chest pain, Edema, Lightheadedness, Syncope, Exertional dyspnea - Respiratory Respiratory: denies: Cough, Sputum production, Wheezing, Hemoptysis - Gastrointestinal Gastrointestinal: reports: Poor appetite. denies: Abdominal pain, Abdominal distention, Constipation, Diarrhea, Nausea, Vomiting - Genitourinary Genitourinary: reports: Frequency, Hematuria. denies: Dysuria, Flank pain - Integumentary Integumentary: denies: Rash, Pruritis, Dryness - Neurological Neurological: denies: General weakness, Headache, Dizziness, Numbness - Psychiatric Psychiatric: denies: Depression, Anxiety, Suicidal, Delusions Exam - Vital Signs Vital Signs: Vital Signs x48h Temp Pulse Pulse Resp BP BP Pulse Ox 10/18/17 23:09 36.4 C L 96 15 106/71 98 10/18/17 22:39 36.4 C L 91 19 111/77 98 10/18/17 21:13 99 17 100/80 98 10/18/17 20:25 98 16 122/81 H 99 10/18/17 18:56 100 16 107/70 100 10/18/17 17:49 101 H 17 106/72 98 - Physical Exam General Appearance: positive: No acute distress Eyes Bilateral: positive: Normal inspection, PERRL, EOMI, Conjunctivae nml, No scleral icterus ENT: positive: ENT inspection nml, Pharynx nml, No signs of dehydration Neck: positive: Nml inspection, Thyroid nml, No JVD, Trachea midline. negative: Thyromegaly Respiratory: positive: Chest non-tender, No respiratory distress, Breath sounds nml, Wheezes, Rales, Rhonchi Cardiovascular: positive: Irregularly irregular, Tachycardia. negative: No m urmur, No gallop Abdomen: positive: Non-tender, No organomegaly, Nml bowel sounds, No distention, Tenderness, Guarding, Rebound Skin: positive: Color nml, No rash, Warm Extremities: positive: Non-tender, Full ROM, Nml appearance Neurologic/Psychiatric: positive: Oriented x3, CN's nml (2-12), Motor nml Conclusion/Plan - Problem List (1) UTI (urinary tract infection) Conclusion/Plan: Patient started on rocephin. Will continue Qualifiers: Urinary tract infection type: acute pyelonephritis Qualified Code(s): N10 - Acute pyelonephritis (2) Atrial fibrillation with rapid ventricular response Conclusion/Plan: ?Intrinsic vs trigger by infection Patient given diltiazem 10mg IV X1 with improvement of rate to 80's Patient's rate currently 100 or less. If needed, will repeat diltiazem Patient will likely need a rate controlling med upon discharge. Consider diltiazem po. AVOID BETA MARBIN!!! NOT TOLERATED Will get 2D echo Owing to patient's age and overall health, I would not recommend oral anticoag This was discussed with family at bedside who expressed understanding (3) Polymyalgia rheumatica Conclusion/Plan: Patient recently underwent a right temporal artery biopsy 1 week ago Currently on prednisone 20mg tid po. 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 Expect improvement with hydration and antibiotics If no improvement, please consider renal ultrasound (5) GERD (gastroesophageal reflux disease) Conclusion/Plan: On omeprazole (6) DVT prophylaxis Conclusion/Plan: Lovenox 30mg subq daily - Lab Results Fish Bones: 10/18/17 14:46 10/18/17 14:46 Core Measures - Anticipated LOS I expect patient to be DC'd or transferred within 96 hours.: Yes - DVT/VTE - Prophylaxis VTE/DVT Device ordered at admit?: Yes VTE/DVT Prophylaxis med ordered at admit?: Yes
[2017-10-19] MEDS: SODIUM CHLORIDE 0.9% 1,000 ML IV SCH ×2 (04:38→10:52)
[2017-10-19] MEDS: SODIUM CHLORIDE FLUSH 0.9% 10 ML SYRINGE IVP PRN ×2 (04:43→21:11)
[2017-10-19] MEDS ORDERED: predniSONE 20 MG TABLET PO SCH ×2 (06:00→07:59)
[2017-10-19 06:09] LABS: BASOPHILS % (AUTO) 0.1 %; EOSINOPHILS % (AUTO) 0.1 %; HGB - HEMOGLOBIN 10.3 g/dL (12.0-16.0); LYMPHOCYTES # (AUTO) 0.7 10^3/uL (1.5-3.5); LYMPHOCYTES % (AUTO) 5.8 %; MEAN CORPUSCULAR HEMOGLOBIN 31.9 pg (27.0-31.0); MEAN CORPUSCULAR HGB CONC 32.7 g/dL (32.0-36.0); MEAN CORPUSCULAR VOLUME 97.6 fL (81.0-99.0); MEAN PLATELET VOLUME 8.4 fL (7.9-10.8); MONOCYTES # (AUTO) 0.9 10^3/uL (0.0-1.0); NEUTROPHILS # (AUTO) 9.9 10^3/uL (1.5-6.6); PLT - PLATELET COUNT 199 10^3/uL (130-450); RED BLOOD COUNT 3.23 10^6/uL (4.20-5.40); RED CELL DISTRIBUTION WIDTH 15.4 % (12.0-15.0); WHITE BLOOD COUNT 11.5 x10^3/uL (4.8-10.8)
[2017-10-19 06:16] LABS: CALCIUM 8.7 mg/dL (8.5-10.3); CREATININE 1.1 mg/dL (0.4-1.0)
[2017-10-19 06:41] LABS: HB2 TOTAL 10.3 g/dL; HEMOGLOBIN A1C 0.41 g/dL; HEMOGLOBIN A1C % 5.8 % (4.6-6.2)
[2017-10-19] MEDS: CYANOCOBALAMIN 500 MCG TABLET PO SCH (08:30)
[2017-10-19] MEDS: ZINC SULFATE 220 MG CAPSULE PO SCH (08:31)
[2017-10-19] MEDS: CHOLECALCIFEROL 400 UNIT TABLET PO SCH ×2 (08:31→21:11)
[2017-10-19] MEDS: CALCIUM CARB (OYSTER SHELL) 500 MG TABLET PO SCH ×2 (08:31→21:11)
[2017-10-19] MEDS: MULTIVITAMIN TABLET PO SCH (08:31)
[2017-10-19] MEDS: POLYETHYLENE GLYCOL 3350 17 GM PACKET PO SCH (08:33)
[2017-10-19] MEDS: PANTOPRAZOLE 40 MG TABLET PO SCH ×2 (08:33→16:41)
[2017-10-19] MEDS: ENOXAPARIN 30 MG/0.3 ML SYRINGE SUBQ SCH (08:33)
[2017-10-19] MEDS: SODIUM CHLORIDE FLUSH 0.9% 10 ML SYRINGE IVP SCH ×2 (08:34→16:41)
[2017-10-19] MEDS ORDERED: ENOXAPARIN 40 MG/0.4 ML SYRINGE SUBQ SCH (09:00)
[2017-10-19] MEDS ORDERED: SODIUM CHLORIDE 0.9% 500 ML IV ONE (10:09)
[2017-10-19] MEDS: methylPREDNISolone SUCCINATE 40 MG/ML VIAL IVP SCH ×2 (14:03→21:11)
[2017-10-19] MEDS: cefTRIAXone 1 GM in SODIUM CHLORIDE 0.9% MINIBAG 100 ML IV SCH (16:41)
[2017-10-19] MEDS ORDERED: cefTRIAXone 1 GM VIAL IVP SCH (17:00)
[2017-10-19] MEDS ORDERED: ONDANSETRON 4 MG/2 ML VIAL IVP PRN (18:59)
[2017-10-19] MEDS ORDERED: DIGOXIN 500 MCG/2 ML AMP IVP ONE (18:59)
--- NOTE | 2017-10-19 19:01 | PROVIDER PROGRESS NOTE ---
Subjective - Prog Note Date Prog Note Date: 10/19/17 Prog Note Time: 19:01 - Subjective Pt reports feeling: Improved Subjective: Stefani complains of dizziness and mild nausea. She denies chest pain, vomiting, rashes, or a new cough. Objective - Vital Signs/Intake & Output Reviewed Vital Signs: Yes Vital Signs: Vital Signs x48h Temp Pulse Resp BP Pulse Ox 10/19/17 18:36 37.0 C 144 H 18 99/56 L 97 10/19/17 15:39 36.6 C 117 H 16 124/75 96 10/19/17 13:17 36.6 C 115 H 16 110/64 99 10/19/17 11:55 107/60 Intake & Output: Intake & Output 10/16/17 10/17/17 10/18/17 10/19/17 23:59 23:59 23:59 23:59 Intake Total 1000 3161.66 Balance 1000 3161.66 - Objective General Appearance: positive: Alert, Moderate distress, Anxious Eyes Bilateral: positive: Normal inspection Eyes: OU Scleral icterus ENT: positive: ENT inspection nml, Pharynx nml, Dry mucous membranes Neck: positive: Nml inspection, Thyroid nml, No JVD, Trachea midline Respiratory: positive: Chest non-tender, No respiratory distress, Rhonchi Cardiovascular: positive: No gallop, Irregularly irregular, Tachycardia, Systolic murmur Peripheral Pulses: 1+ Radial (R), 1+ Radial (L) Abdomen: positive: Non-tender, Nml bowel sounds Back: positive: Nml inspection Skin: positive: No rash, Warm, Dry Extremities: positive: Non-tender, Full ROM, No pedal edema, Joint swelling Neurologic/Psychiatric: positive: Oriented x3, CN's nml (2-12), Motor nml, Sensation nml, Depressed mood/affect Reflexes: Bicep (R): 3+, Bicep (L): 3+ - Lab Results Fish Bones: 10/21/17 05:20 10/21/17 05:20 Other Labs: Lab Results x24hrs 10/19/17 10/19/17 10/19/17 Range/Units 05:35 05:35 05:35 WBC 11.5 H (4.8-10.8) x10^3/uL RBC 3.23 L (4.20-5.40) 10^6/uL Hgb 10.3 L (12.0-16.0) g/dL Hct 31.5 L (37.0-47.0) % MCV 97.6 (81.0-99.0) fL MCH 31.9 H (27.0-31.0) pg MCHC 32.7 (32.0-36.0) g/dL RDW 15.4 H (12.0-15.0) % Plt Count 199 (130-450) 10^3/uL MPV 8.4 (7.9-10.8) fL Neut # (Auto) 9.9 H (1.5-6.6) 10^3/uL Lymph # (Auto) 0.7 L (1.5-3.5) 10^3/uL Duchesne # (Auto) 0.9 (0.0-1.0) 10^3/uL Eos # (Auto) 0.0 (0.0-0.7) 10^3/uL Baso # (Auto) 0.0 (0.0-0.1) 10^3/uL Absolute Nucleated RBC 0.00 x10^3/uL Nucleated RBC % 0.0 /100WBC Sodium 138 (135-145) mmol/L Potassium 4.2 (3.5-5.0) mmol/L Chloride 110 (101-111) mmol/L Carbon Dioxide 21 (21-32) mmol/L Anion Gap 7.0 (6-13) BUN 40 H (6-20) mg/dL Creatinine 1.1 H (0.4-1.0) mg/dL Estimated GFR (MDRD) 47 L (>89) Glucose 81 (70-100) mg/dL Glycated Hemoglobin 5.8 (4.6-6.2) % Estim Average Glucose 120 H (70-100) Calcium 8.7 (8.5-10.3) mg/dL ABX Reporting Has patient been on IV antibiotics over the past 48 hours?: Yes Assessment/Plan - Problem List (1) Pyelonephritis Impression: Upon admission the patient was found to have a UTI with high WBCs, moderate bacteria and this was sent for culture. The patient states that she has "bladder trouble" at home with frequency, urgency and chronic issues with UTIs. The patient had AMS and hypotension. She was also found to have LAZARO. Plan: Continue treatment with IV antibiotics. (2) Hypotension Impression: The patient was symptomatic with blood pressures 88/47 and 90/60. She was placed in trendelenberg position for just over one hour, given IVF boluses and she admitted to "missing a few doses of prednisone" prior to admission. She takes chronic prednisone at 20 mg PO TID. Plan: Continue to monitor VSs, continue IVF boluses, and start a steroid boost. Qualifiers: Hypotension type: idiopathic hypotension Qualified Code(s): I95.0 - Idiopathic hypotension (3) Atrial fibrillation with rapid ventricular response Impression: The patient states that she has struggled with atrial fibrillation for "50 years of her life", and recently underwent a cardiac ablation to repair this. She is now found to be in atrial fibrillation RVR with rates in the 100-140's. The patient is symptomatic with being hypotensive and complaining of intermittent palpitations. She was given IV diltiazem, with plans to transition to oral in the next 24 hours. This is a good medication for patient with advanced lung disease (COPD). Plan: Continue on telemetry, obtain an echo, and continue diltiazem. (4) Znbxl-ru-xjqmzfd kidney injury Impression: The patient has baseline CKD. Upon admission she has an elevated creatinine of 1.4 and a reduced GFR of 35. She is thought to have a baseline creatinine of ~1.1, and has very little body mass. The primary reason for this abnormality is her acute illness. Plan: Replenish with IVFs and monitor labs. (5) Anemia Impression: The patient has known iron deficiency anemia and is prescribed iron supplement at home. Hemoglobin and hematocrit upon admission were 11.9/36.7. Plan: Continue daily labs, watch for signs of bleeding, and continue supplement if tolerable. Qualifiers: Anemia type: unspecified type Qualified Code(s): D64.9 - Anemia, unspecif ied (6) Polymyalgia rheumatica Impression: The patient has a history of this and is prescribed chronic prednisone at 20 mg PO TID for at least the last year as a consequence of skin lesions. Plan: Give a steroid boost in light of her hypotension, and wean back down in the next 48 hours. (7) GERD (gastroesophageal reflux disease) Impression: The patient has a history of this and is prescribed Prilosec at home. This condition has been stable, although the patient has been mildly nauseated today. Plan: continue medications.
[2017-10-20] MEDS: SODIUM CHLORIDE FLUSH 0.9% 10 ML SYRINGE IVP SCH ×3 (00:36→17:10)
[2017-10-20 06:04] LABS: BASOPHILS % (AUTO) 0.1 %; HGB - HEMOGLOBIN 10.5 g/dL (12.0-16.0); LYMPHOCYTES # (AUTO) 0.2 10^3/uL (1.5-3.5); LYMPHOCYTES % (AUTO) 1.8 %; MEAN CORPUSCULAR HEMOGLOBIN 32.9 pg (27.0-31.0); MEAN CORPUSCULAR HGB CONC 33.1 g/dL (32.0-36.0); MEAN CORPUSCULAR VOLUME 99.3 fL (81.0-99.0); MEAN PLATELET VOLUME 8.3 fL (7.9-10.8); MONOCYTES # (AUTO) 0.3 10^3/uL (0.0-1.0); MONOCYTES % (AUTO) 3.2 %; NEUTROPHILS # (AUTO) 8.8 10^3/uL (1.5-6.6); NEUTROPHILS % (AUTO) 94.9 %; PLT - PLATELET COUNT 174 10^3/uL (130-450); RED CELL DISTRIBUTION WIDTH 15.7 % (12.0-15.0); WHITE BLOOD COUNT 9.3 x10^3/uL (4.8-10.8)
[2017-10-20 06:16] LABS: CALCIUM 8.8 mg/dL (8.5-10.3); CREATININE 1.1 mg/dL (0.4-1.0)
[2017-10-20] MEDS: PANTOPRAZOLE 40 MG TABLET PO SCH ×2 (06:17→17:09)
[2017-10-20] MEDS: methylPREDNISolone SUCCINATE 40 MG/ML VIAL IVP SCH ×2 (06:18→13:56)
[2017-10-20] MEDS: SODIUM CHLORIDE FLUSH 0.9% 10 ML SYRINGE IVP PRN ×2 (06:19→21:54)
[2017-10-20] MEDS: CALCIUM CARB (OYSTER SHELL) 500 MG TABLET PO SCH ×2 (09:26→21:54)
[2017-10-20] MEDS: MULTIVITAMIN TABLET PO SCH (09:26)
[2017-10-20] MEDS: CHOLECALCIFEROL 400 UNIT TABLET PO SCH ×2 (09:26→21:54)
[2017-10-20] MEDS: ZINC SULFATE 220 MG CAPSULE PO SCH (09:26)
[2017-10-20] MEDS: CYANOCOBALAMIN 500 MCG TABLET PO SCH (09:26)
[2017-10-20] MEDS: ENOXAPARIN 30 MG/0.3 ML SYRINGE SUBQ SCH (09:27)
[2017-10-20] MEDS: POLYETHYLENE GLYCOL 3350 17 GM PACKET PO SCH (09:27)
[2017-10-20] MEDS: cefTRIAXone 1 GM in SODIUM CHLORIDE 0.9% MINIBAG 100 ML IV SCH (17:10)
[2017-10-20] MEDS ORDERED: DOCUSATE SODIUM 250 MG CAPSULE PO SCH (19:00)
[2017-10-20] MEDS ORDERED: SENNA 8.6 MG TABLET PO SCH (19:00)
[2017-10-20] MEDS ORDERED: methylPREDNISolone SUCCINATE 40 MG/ML VIAL IVP SCH (22:00)
[2017-10-21] MEDS: SODIUM CHLORIDE FLUSH 0.9% 10 ML SYRINGE IVP SCH ×2 (00:29→09:59)
[2017-10-21 05:51] LABS: CALCIUM 9.2 mg/dL (8.5-10.3); CREATININE 1.3 mg/dL (0.4-1.0)
[2017-10-21] MEDS: PANTOPRAZOLE 40 MG TABLET PO SCH (06:03)
[2017-10-21 06:05] LABS: HGB - HEMOGLOBIN 10.6 g/dL (12.0-16.0); LYMPHOCYTES # (AUTO) 0.2 10^3/uL (1.5-3.5); LYMPHOCYTES % (AUTO) 1.5 %; MEAN CORPUSCULAR HEMOGLOBIN 31.8 pg (27.0-31.0); MEAN CORPUSCULAR VOLUME 96.3 fL (81.0-99.0); MEAN PLATELET VOLUME 8.6 fL (7.9-10.8); MONOCYTES # (AUTO) 0.4 10^3/uL (0.0-1.0); MONOCYTES % (AUTO) 3.3 %; NEUTROPHILS # (AUTO) 12.5 10^3/uL (1.5-6.6); NEUTROPHILS % (AUTO) 95.2 %; PLT - PLATELET COUNT 190 10^3/uL (130-450); RED BLOOD COUNT 3.32 10^6/uL (4.20-5.40); RED CELL DISTRIBUTION WIDTH 15.2 % (12.0-15.0); WHITE BLOOD COUNT 13.1 x10^3/uL (4.8-10.8)
[2017-10-21] MEDS ORDERED: predniSONE 20 MG TABLET PO SCH (08:00)
[2017-10-21] MEDS ORDERED: SENNA 8.6 MG TABLET PO SCH (09:00)
[2017-10-21] MEDS ORDERED: diltiaZEM CD 120 MG CAPSULE PO SCH (09:00)
[2017-10-21] MEDS ORDERED: DOCUSATE SODIUM 250 MG CAPSULE PO SCH (09:00)
[2017-10-21] MEDS: POLYETHYLENE GLYCOL 3350 17 GM PACKET PO SCH (09:56)
[2017-10-21] MEDS: CHOLECALCIFEROL 400 UNIT TABLET PO SCH (09:57)
[2017-10-21] MEDS: CYANOCOBALAMIN 500 MCG TABLET PO SCH (09:57)
[2017-10-21] MEDS: MULTIVITAMIN TABLET PO SCH (09:57)
[2017-10-21] MEDS: ENOXAPARIN 30 MG/0.3 ML SYRINGE SUBQ SCH (09:58)
[2017-10-21] MEDS: CALCIUM CARB (OYSTER SHELL) 500 MG TABLET PO SCH (09:58)
[2017-10-21] MEDS: ZINC SULFATE 220 MG CAPSULE PO SCH (09:58)
[2017-10-21 10:10] VITALS: BP 105/60
--- NOTE | 2017-10-21 10:30 | Discharge Plan ---
Discharge Plan Disposition: Home, Self Care Condition: Good Prescriptions: Amox/Clav 875/125 [Augmentin] 1 each PO Q12H 5 Days #10 tablet diltiaZEM CD [Cardizem Cd] 120 mg PO DAILY #30 capsule Saccharomyces Boulardii [Florastor] 250 mg PO BID #60 capsule Diet: Regular Activity Restrictions: No Restrictions Shower Restrictions: No Driving Restrictions: No Weight Bearing: Full Weight Instruction Topics: Diltiazem tablets Additional Instructions or Follow Up instructions: You were admitted for treatment of your UTI, which required IV treatment. I have sent Augmentin to your pharmacy to be taken for 5 more days, with a probiotic to prevent diarrhea. You were also found to have low blood pressures, and in your acute illness state you were given a steroid boost, and transitioned back to your oral doses. Your heart rates were too high 100-140's, and you were symptomatic, so diltiazem was started, which has been sent to your pharmacy to continue at home. The rhythm was atrial fibrillation. Please see Dr. Baeza within one week. No Smoking: If you smoke, Please STOP! Call for help. Follow-up with: Karina Carroll PA-C [Primary Care Provider] -
--- NOTE | 2017-10-21 10:39 | DISCHARGE SUMMARY ---
Discharge Summary Admit Date: 10/18/17 Discharge Date: 10/21/17 Discharging Provider: LISA Lau Primary Care Provider: Dr. Baeza Code Status: Attempt Resuscitation Condition at Discharge: Good Discharge Disposition: 01 Home, Self Care - DIAGNOSES Admission Diagnoses: Urinary tract infection, site not specified (N39.0) Unspecified atrial fibrillation (I48.91) Polymyalgia rheumatica (M35.3) Acute kidney failure, unspecified (N17.9) Gastro-esophageal reflux disease without esophagitis (K21.9) Discharge Diagnoses with Status of Each Condition: Pyelonephritis (N12) new on this admit, improved PO meds to continue at home. Atrial fibrillation with rapid ventricular response (I48.91) new on this admit, continue oral dilt at home. Polymyalgia rheumatica (M35.3) chronic, stable. Afslk-fa-qubxfbc kidney injury (N17.9) chronic, stable. GERD (gastroesophageal reflux disease) (K21.9) chronic, stable. Anemia (D64.9) chronic, stable. Hypotension (I95.9) resolved. - HPI History of Present Illness: Stefani Payne is an 87 y/o frail female with a past medical history of atrial fibrillation, s/p ablation who presented to the ED with complaints of hematuria. In the ED she was found to be in atrial fibrillation with a rapid ventricular rythm with heart rate 110-120. She reports increased urinary frequency and blood tinged urine about 2 days ago. She has not been feeling well lately and has a poor appetite. She denies chest pain, LUCIUS, abdominal pain, fewer or chills. She was found to have a WBC of 18. A UA obtained in the ED was strongly suggestive of a UTI - HOSPITAL COURSE Hospital Course: (1) Pyelonephritis Upon admission the patient was found to have a UTI with high WBCs, moderate bacteria and this was sent for culture. Results grew out e. coli. The patient states that she has "bladder trouble" at home with frequency, urgency and chronic issues with UTIs. The patient had AMS and hypotension. She was also found to have LAZARO with an initial creatinine of 1.4, that is improved at 1.1 prior to discharge. She was prescribed IV rocephin which continued until the time of discharge. She was sent home on Augmentin to be continued at home based on sensitivities. (2) Hypotension Today her blood pressure appears more stable at 100/70, and the patient no longer has symptoms. The patient was symptomatic shortly after admission with blood pressures 88/47 and 90/60. She was placed in trendelenberg position for just over one hour, given IVF boluses and she admitted to "missing a few doses of prednisone" prior to admission. She takes chronic prednisone at 20 mg PO TID. She was started on a steroid boost using solu-medrol 40mg IV TID, that was reduced gradually, and her oral prednisone was resumed prior to discharge. (3) Atrial fibrillation with rapid ventricular response The patient states that she has struggled with atrial fibrillation for "50 years of her life", and recently underwent a cardiac ablation to repair this. She is now found to be in atrial fibrillation RVR with rates in the 100-140's. The patient is symptomatic with being hypotensive and complaining of intermittent palpitations. She was given IV diltiazem, that was started in an oral form today. This is a good medication for patient with advanced lung disease (COPD). She was stable on Diltiazem at 120 mg daily CD. (4) Xzngf-ed-xsirspu kidney injury The patient has baseline CKD. Upon admission she has an elevated creatinine of 1.4 and a reduced GFR of 35. She is thought to have a baseline creatinine of ~1.1, and has very little body mass. The primary reason for this abnormality is her acute illness. (5) Anemia The patient has known iron deficiency anemia and is prescribed iron supplement at home. Hemoglobin and hematocrit upon admission were 11.9/36.7. The patient was stable at the time of discharge. (6) Polymyalgia rheumatica The patient has a history of this and is prescribed chronic prednisone at 20 mg PO TID for at least the last year as a consequence of skin lesions. The patient was given a steroid boost in light of her hypotension, and weaned back to her usual dose at the time of discharge. (7) GERD (gastroesophageal reflux disease) The patient has a history of this and is prescribed Prilosec at home. This condition has been stable, although the patient was mildly nauseated, which subsided at the time of discharge. Disposition: The patient was very anxious to return home with her on the morning of discharge. She did not require oxygen, and she was transported via private car with . - ALLERGIES Allergies/Adverse Reactions: Allergies Allergy/AdvReac Type Severity Reaction Status Date / Time shrimp Allergy Severe Anaphylaxis Verified 10/18/17 14:45 Sulfa (Sulfonamide Allergy Severe Respiratory Verified 10/21/17 09:25 Antibiotics) Hadlgmi-Str-Lhf Reductase Allergy Cramps Verified 10/18/17 14:45 Inhibitor metoprolol AdvReac Respiratory Verified 10/18/17 14:45 - MEDICATIONS Home Medications: Ambulatory Orders Medication Instructions Recorded Confirmed Acetaminophen 650 mg PO BID 07/20/16 10/19/17 Calcium Carbonate/Vitamin D3 1 tab PO DAILY 07/20/16 10/19/17 [Calcium 600-Vit D3 400 Tablet] Multivitamin [Theragran] 1 tab PO DAILY 07/20/16 10/19/17 Biotin 1 cap PO DAILY 04/20/17 10/19/17 Omeprazole 20 mg PO BID 05/11/17 10/19/17 Cyanocobalamin (Vitamin B-12) 1,000 mcg PO DAILY 10/11/17 10/19/17 [Vitamin B-12] Zinc 220 mg PO DAILY 10/11/17 10/19/17 predniSONE [Prednisone] 20 tab PO TID 10/11/17 10/19/17 Ascorbic Acid 500 mg PO DAILY 10/19/17 10/19/17 Ferrous Sulfate 325 mg PO DAILY 10/19/17 10/19/17 Amox/Clav 875/125 [Augmentin] 1 each PO Q12H 5 Days #10 tablet 10/21/17 Saccharomyces Boulardii [Florastor] 250 mg PO BID #60 capsule 10/21/17 diltiaZEM CD [Cardizem Cd] 120 mg PO DAILY #30 capsule 10/21/17 - PHYSICAL EXAM AT DISCHARGE General Appearance: positive: No acute distress, Alert Eyes Bilateral: positive: Normal inspection ENT: positive: ENT inspection nml, Pharynx nml, No signs of dehydration Neck: positive: Nml inspection, Thyroid nml, No JVD, Stiff neck Respiratory: positive: Chest non-tender, No respiratory distress, Breath sounds nml Cardiovascular: positive: No gallop, Irregularly irregular, Systolic murmur Peripheral Pulses: positive: 2+ Abdomen: positive: Non-tender, Nml bowel sounds Back: positive: Nml inspection Skin: positive: No rash, Warm, Dry Extremities: positive: Non-tender, Full ROM, Nml appearance, No pedal edema Neurologic/Psychiatric: positive: Oriented x3, CN's nml (2-12), Motor nml, Sensation nml, Depressed mood/affect Reflexes: Bicep (R): 2+, Bicep (L): 2+ - LABS Result Diagrams: 10/21/17 05:20 10/21/17 05:20 - FOLLOW UP Follow Up: Disposition: Home, Self Care Condition: Good Prescriptions: Amox/Clav 875/125 [Augmentin] 1 each PO Q12H 5 Days #10 tablet diltiaZEM CD [Cardizem Cd] 120 mg PO DAILY #30 capsule Saccharomyces Boulardii [Florastor] 250 mg PO BID #60 capsule Diet: Regular Activity Restrictions: No Restrictions Instruction Topics: Diltiazem tablets Additional Instructions or Follow Up instructions: You were admitted for treatment of your UTI, which required IV treatment. I have sent Augmentin to your pharmacy to be taken for 5 more days, with a probiotic to prevent diarrhea. You were also found to have low blood pressures, and in your acute illness state you were given a steroid boost, and transitioned back to your oral doses. Your heart rates were too high 100-140's, and you were symptomatic, so diltiazem was started, which has been sent to your pharmacy to continue at home. The rhythm was atrial fibrillation. Please see Dr. Baeza within one week. - TIME SPENT Time Spent in Discharge (Minutes): 55
--- NOTE | 2017-10-21 15:58 | PROVIDER PROGRESS NOTE ---
Subjective - Prog Note Date Prog Note Date: 10/20/17 Prog Note Time: 08:00 - Subjective Pt reports feeling: Improved Subjective: Stefani is upset about not being able to return home and became tearful about missing her 's 89st birthday yesterday. She denies any new symptoms such as chest pain, increased SOB, nausea, vomiting, diarrhea or a new cough. Objective - Vital Signs/Intake & Output Reviewed Vital Signs: Yes Vital Signs: Vital Signs x48h Pulse BP 10/21/17 10:10 81 105/60 Intake & Output: Intake & Output 10/18/17 10/19/17 10/20/17 10/21/17 23:59 23:59 23:59 23:59 Intake Total 1000 3401.66 1680 460 Balance 1000 3401.66 1680 460 - Objective General Appearance: positive: No acute distress, Alert Eyes Bilateral: positive: Normal inspection, PERRL ENT: positive: ENT inspection nml, Pharynx nml, No signs of dehydration Neck: positive: Nml inspection, Thyroid nml, No JVD, Stiff neck Respiratory: positive: Chest non-tender, No respiratory distress, Other (diminished.) Cardiovascular: positive: No gallop, Irregularly irregular, Systolic murmur Abdomen: positive: Non-tender, Nml bowel sounds Back: positive: Nml inspection Skin: positive: No rash, Warm, Dry Extremities: positive: Non-tender, Full ROM, Nml appearance, No pedal edema Neurologic/Psychiatric: positive: Oriented x3, CN's nml (2-12), Motor nml, Sensation nml, Depressed mood/affect Reflexes: Bicep (R): 3+, Bicep (L): 3+ - Lab Results Fish Bones: 10/21/17 05:20 10/21/17 05:20 Other Labs: Lab Results x24hrs 10/21/17 10/21/17 Range/Units 05:20 05:20 WBC 13.1 H (4.8-10.8) x10^3/uL RBC 3.32 L (4.20-5.40) 10^6/uL Hgb 10.6 L (12.0-16.0) g/dL Hct 32.0 L (37.0-47.0) % MCV 96.3 (81.0-99.0) fL MCH 31.8 H (27.0-31.0) pg MCHC 33.0 (32.0-36.0) g/dL RDW 15.2 H (12.0-15.0) % Plt Count 190 (130-450) 10^3/uL MPV 8.6 (7.9-10.8) fL Neut # (Auto) 12.5 H (1.5-6.6) 10^3/uL Lymph # (Auto) 0.2 L (1.5-3.5) 10^3/uL [place] # (Auto) 0.4 (0.0-1.0) 10^3/uL Eos # (Auto) 0.0 (0.0-0.7) 10^3/uL Baso # (Auto) 0.0 (0.0-0.1) 10^3/uL Absolute Nucleated RBC 0.01 x10^3/uL Nucleated RBC % 0.0 /100WBC Sodium 135 (135-145) mmol/L Potassium 4.1 (3.5-5.0) mmol/L Chloride 108 (101-111) mmol/L Carbon Dioxide 18 L (21-32) mmol/L Anion Gap 9.0 (6-13) BUN 48 H (6-20) mg/dL Creatinine 1.3 H (0.4-1.0) mg/dL Estimated GFR (MDRD) 39 L (>89) Glucose 146 H (70-100) mg/dL Calcium 9.2 (8.5-10.3) mg/dL ABX Reporting Has patient been on IV antibiotics over the past 48 hours?: Yes Assessment/Plan - Problem List (1) Pyelonephritis Impression: Upon admission the patient was found to have a UTI with high WBCs, moderate bacteria and this was sent for culture. Preliminary results show e. coli. The patient states that she has "bladder trouble" at home with frequency, urgency and chronic issues with UTIs. The patient had AMS and hypotension. She was also found to have LAZARO with an initial creatinine of 1.4, that is improved today at 1.1. She was prescribed IV rocephin which continues. Plan: Continue treatment with IV antibiotics. (2) Hypotension Impression: Today her blood pressure appears more stable at 100/70, and the patient no longer has symptoms. Yesterday, the patient was symptomatic with blood pre ssures 88/47 and 90/60. She was placed in trendelenberg position for just over one hour, given IVF boluses and she admitted to "missing a few doses of prednisone" prior to admission. She takes chronic prednisone at 20 mg PO TID. She was started on a steroid boost using solu-medrol 40mg IV TID, that was reduced today to BID and her oral prednisone has been on hold. Plan: Continue to monitor VSs, continue IVF boluses, and start a steroid boost. Qualifiers: Hypotension type: idiopathic hypotension Qualified Code(s): I95.0 - Idiopathic hypotension (3) Atrial fibrillation with rapid ventricular response Impression: The patient states that she has struggled with atrial fibrillation for "50 years of her life", and recently underwent a cardiac ablation to repair this. She is now found to be in atrial fibrillation RVR with rates in the 100-140's. The patient is symptomatic with being hypotensive and complaining of intermittent palpitations. She was given IV diltiazem, that was started in an oral form today. This is a good medication for patient with advanced lung disease (COPD). Plan: Continue on telemetry, obtain an echo, and continue diltiazem PO. (4) Lwrbw-sn-rtywijz kidney injury Impression: The patient has baseline CKD. Upon admission she has an elevated creatinine of 1.4 and a reduced GFR of 35. She is thought to have a baseline creatinine of ~1.1, and has very little body mass. The primary reason for this abnormality is her acute illness. Plan: Replenish with IVFs and monitor labs. (5) Anemia Impression: The patient has known iron deficiency anemia and is prescribed iron supplement at home. Hemoglobin and hematocrit upon admission were 11.9/36.7. Plan: Continue daily labs, watch for signs of bleeding, and continue supplement if tolerable. Qualifiers: Anemia type: unspecified type Qualified Code(s): D64.9 - Anemia, unspecified (6) Polymyalgia rheumatica Impression: The patient has a history of this and is prescribed chronic prednisone at 20 mg PO TID for at least the last year as a consequence of skin lesions. Plan: Give a steroid boost in light of her hypotension, and wean back down in the next 48 hours. (7) GERD (gastroesophageal reflux disease) Impression: The patient has a history of this and is prescribed Prilosec at home. This condition has been stable, although the patient has been mildly nauseated today. Plan: continue medications.
== END 2017-10-21 11:13 | disposition home or self-care (01) | DRG 690 ==
LOC: ED 14:10 → MS2 22:13
PROVIDERS: ADMIT Internal Medicine; ATTEND Nurse Practitioner
DX: N39.0 Urinary tract infection, site not specified (principal); N10 Acute pyelonephritis; J44.9 Chronic obstructive pulmonary disease, unspecified; K21.9 Gastro-esophageal reflux disease without esophagitis; K44.9 Diaphragmatic hernia without obstruction or gangrene; I48.91 Unspecified atrial fibrillation; M35.3 Polymyalgia rheumatica; N17.9 Acute kidney failure, unspecified; I95.0 Idiopathic hypotension; D50.9 Iron deficiency anemia, unspecified
CPT/HCPCS: 36415; 71046; 80048; 80053; 81001; 81003; 83036; 83690; 83735; 83880; 84484; 85025; 87040; 87086; 87181; 93005; 93306; 96361; 96374; 96375; 99284; 99285

== ENCOUNTER 2017-11-03 20:38 | Emergency (ER) | payer MEDICARE, OTHER ==
--- NOTE | 2017-11-03 21:30 | ED Physician Documentation ---
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 She was Admitted earlier this month for 4 days for pyelonephritis. She had a history remotely of A. fib status post ablation a few years ago and was back in this. She was started on diltiazem. She was on Augmentin in the hospital and discharged, it gave her diarrhea but now is slightly constipated. She is felt generally weak ever since discharge with slight shortness of breath and pedal edema. She was worried because she took her blood pressure at home and it was 80/40 but her blood pressure cuff was too large.) Review of Systems Constitutional: reports: Fatigue. denies: Fever, Chills Respiratory: reports: Dyspnea. denies: Cough GI: reports: Constipation, Diarrhea. denies: Abdominal Pain, Nausea, Vomiting PD PAST MEDICAL HISTORY - Past Medical History Past Medical History: Yes Cardiovascular: Atrial fibrillation, Arrhythmia Respiratory: COPD, Pneumonia Neuro: None Endocrine/Autoimmune: None GI: GERD, Hiatal hernia : Other HEENT: None Psych: None Musculoskeletal: Osteoarthritis, Osteoporosis Derm: Eczema, Psoriasis, Other - Past Surgical History Past Surgical History: Yes General: Cholecystectomy, Appendectomy, Colonoscopy, EGD Ortho: Hip replacement, Other /AIRLINE TICKET AGENT: Tubal ligation, Other Cardiovascular: Other HEENT: Cataracts Derm: Skin cancer surgery - Present Medications Home Medications: Ambulatory Orders Medication Instructions Recorded Confirmed Acetaminophen 650 mg PO BID 07/20/16 10/19/17 Calcium Carbonate/Vitamin D3 1 tab PO DAILY 07/20/16 10/19/17 [Calcium 600-Vit D3 400 Tablet] Multivitamin [Theragran] 1 tab PO DAILY 07/20/16 10/19/17 Biotin 1 cap PO DAILY 04/20/17 10/19/17 Omeprazole 20 mg PO BID 05/11/17 10/19/17 Cyanocobalamin (Vitamin B-12) 1,000 mcg PO DAILY 10/11/17 10/19/17 [Vitamin B-12] Zinc 220 mg PO DAILY 10/11/17 10/19/17 predniSONE [Prednisone] 20 tab PO TID 10/11/17 10/19/17 Ascorbic Acid 500 mg PO DAILY 10/19/17 10/19/17 Ferrous Sulfate 325 mg PO DAILY 10/19/17 10/19/17 Amox/Clav 875/125 [Augmentin] 1 each PO Q12H 5 Days #10 tablet 10/21/17 Saccharomyces Boulardii [Florastor] 250 mg PO BID #60 capsule 10/21/17 diltiaZEM CD [Cardizem Cd] 120 mg PO DAILY #30 capsule 10/21/17 Ciprofloxacin [Cipro] 250 mg PO Q12H #14 tablet 11/03/17 - Allergies Allergies/Adverse Reactions: Allergies Allergy/AdvReac Type Severity Reaction Status Date / Time shrimp Allergy Severe Anaphylaxis Verified 11/03/17 20:46 Sulfa (Sulfonamide Allergy Severe Respiratory Verified 11/03/17 20:46 Antibiotics) Tkrsdsa-[id number]-Atd Reductase Allergy Cramps Verified 11/03/17 20:46 Inhibitor metoprolol AdvReac Respiratory Verified 11/03/17 20:46 - Social History Does the pt smoke?: No Smoking Status: Never smoker Does the pt drink ETOH?: Yes Does the pt have substance abuse?: No - Immunizations Immunizations are current?: Yes - POLST Patient has POLST: Yes POLST Status: Full Code PD ED PE NORMAL - Vitals Vital signs reviewed: Yes - General General: Alert and oriented X 3, No acute distress - HEENT HEENT: PERRL, EOMI - Neck Neck: Supple, no meningeal sign, No bony TTP - Cardiac Cardiac: Other (Irregularly irregular without murmur) - Respiratory Respiratory: No respiratory distress, Clear bilaterally - Abdomen Abdomen: Other (Slightly distended and firm consistent with constipation, no tenderness. Slight hyperactive bowel tones. No surgical signs.) - Back Back: No CVA TTP, No spinal TTP - Derm Derm: Normal color, Warm and dry - Extremities Extremities: Other (Trace pitting pedal edema) - Neuro Neuro: Alert and oriented X 3, Normal speech Results - Vitals Vitals: Vital Signs - 24 hr 11/03/17 11/03/17 20:43 21:07 Temperature 36.4 C L Heart Rate 98 108 H Respiratory 20 16 Rate Blood Pressure 95/66 117/73 O2 Saturation 100 97 Oxygen O2 Source [With Activity] Room air O2 Source Room air - Labs Labs: Laboratory Tests 11/03/17 11/03/17 11/03/17 21:35 21:35 21:35 WBC 8.7 RBC 3.38 L Hgb 11.0 L Hct 33.0 L MCV 97.7 MCH 32.5 H MCHC 33.3 RDW 16.5 H Plt Count 182 MPV 7.5 L Neut # (Auto) 7.6 H Lymph # (Auto) 0.6 L [place] # (Auto) 0.5 Eos # (Auto) 0.1 Baso # (Auto) 0.0 Absolute Nucleated RBC 0.00 Nucleated RBC % 0.0 PT 10.5 INR 0.9 Sodium 138 Potassium 3.7 Chloride 106 Carbon Dioxide 25 Anion Gap 7.0 BUN 30 H Creatinine 1.2 H Estimated GFR (MDRD) 42 L Glucose 126 H Calcium 9.3 Magnesium 2.2 Total Bilirubin 0.5 AST 28 ALT 34 Alkaline Phosphatase 57 Troponin I Total Protein 5.9 L Albumin 3.2 Globulin 2.7 Albumin/Globulin Ratio 1.2 Lipase 93 H Urine Color Urine Clarity Urine pH Ur Specific [place] Urine Protein Urine Glucose (UA) Urine Ketones Urine Occult Blood Urine Nitrite Urine Bilirubin Urine Urobilinogen Ur Leukocyte Esterase Urine RBC Urine WBC Urine WBC Clumps Ur Squamous Epith Cells Urine Bacteria Ur Microscopic Review Urine Culture Comments 11/03/17 11/03/17 21:35 21:55 WBC RBC Hgb Hct MCV MCH MCHC RDW Plt Count MPV Neut # (Auto) Lymph # (Auto) [place] # (Auto) Eos # (Auto) Baso # (Auto) Absolute Nucleated RBC Nucleated RBC % PT INR Sodium Potassium Chloride Carbon Dioxide Anion Gap BUN Creatinine Estimated GFR (MDRD) Glucose Calcium Magnesium Total Bilirubin AST ALT Alkaline Phosphatase Troponin I 0.07 Total Protein Albumin Globulin Albumin/Globulin Ratio Lipase Urine Color YELLOW Urine Clarity CLEAR Urine pH 7.0 Ur Specific [place] 1.015 Urine Protein TRACE Urine Glucose (UA) NEGATIVE Urine Ketones NEGATIVE Urine Occult Blood NEGATIVE Urine Nitrite NEGATIVE Urine Bilirubin NEGATIVE Urine Urobilinogen 0.2 (NORMAL) Ur Leukocyte Esterase MODERATE H Urine RBC 6-10 H Urine WBC 11-25 H Urine WBC Clumps PRESENT Ur Squamous Epith Cells FEW Squamous Urine Bacteria Few Ur Microscopic Review INDICATED Urine Culture Comments INDICATED PD MEDICAL DECISION MAKING - ED course ED course: 87-year-old woman with nonspecific weakness and not feeling well since discharge from the hospital. Workup demonstrates persistent UTI, but improved anemia and stable renal function. No evidence of decompensated Heart disease. She is seeing her bunk assembler next week. - Sepsis Event Vital Signs: Vital Signs - 24 hr 11/03/17 11/03/17 20:43 21:07 Temperature 36.4 C L Heart Rate 98 108 H Respiratory 20 16 Rate Blood Pressure 95/66 117/73 O2 Saturation 100 97 Oxygen O2 Source [With Activity] Room air O2 Source Room air Departure - Departure Disposition: 01 Home, Self Care Clinical Impression: UTI (urinary tract infection) Qualifiers: Urinary tract infection type: site unspecified Hematuria presence: without hematuria Qualified Code(s): N39.0 - Urinary tract infection, site not specified Atrial fibrillation Qualifiers: Atrial fibrillation type: chronic Qualified Code(s): I48.2 - Chronic atrial fibrillation Chronic renal insufficiency Qualifiers: Chronic kidney disease stage: stage 1 Qualified Code(s): N18.1 - Chronic kidney disease, stage 1 Condition: Good Record reviewed to determine appropriate education?: Yes Instructions: Atrial Fibrillation Dc, ED UTI Cystitis Female Prescriptions: Ciprofloxacin [Cipro] 250 mg PO Q12H #14 tablet Comments: Continue current medications. Follow-up with the bunk assembler next week as scheduled. Return if worse. We will culture your urine, the results should be done in 48-72 hours. If an antibiotic change is necessary we will call you. Return if worse in the meant ruben, especially if you develop increasing flank pain, fevers, or cannot keep down the medication.
[2017-11-03 21:40] LABS: BASOPHILS % (AUTO) 0.2 %; EOSINOPHILS # (AUTO) 0.1 10^3/uL (0.0-0.7); EOSINOPHILS % (AUTO) 0.8 %; LYMPHOCYTES # (AUTO) 0.6 10^3/uL (1.5-3.5); LYMPHOCYTES % (AUTO) 6.4 %; MEAN CORPUSCULAR HEMOGLOBIN 32.5 pg (27.0-31.0); MEAN CORPUSCULAR HGB CONC 33.3 g/dL (32.0-36.0); MEAN CORPUSCULAR VOLUME 97.7 fL (81.0-99.0); MEAN PLATELET VOLUME 7.5 fL (7.9-10.8); MONOCYTES # (AUTO) 0.5 10^3/uL (0.0-1.0); MONOCYTES % (AUTO) 5.5 %; NEUTROPHILS # (AUTO) 7.6 10^3/uL (1.5-6.6); NEUTROPHILS % (AUTO) 87.1 %; PLT - PLATELET COUNT 182 10^3/uL (130-450); RED BLOOD COUNT 3.38 10^6/uL (4.20-5.40); RED CELL DISTRIBUTION WIDTH 16.5 % (12.0-15.0); WHITE BLOOD COUNT 8.7 x10^3/uL (4.8-10.8)
[2017-11-03 21:46] LABS: INR 0.9 (0.8-1.2); PT - PROTHROMBIN TIME 10.5 secs (9.9-12.6)
[2017-11-03 21:58] LABS: ALBUMIN 3.2 g/dL (3.2-5.5); ALBUMIN/GLOBULIN RATIO 1.2 (1.0-2.2); BILIRUBIN,TOTAL 0.5 mg/dL (0.2-1.0); CALCIUM 9.3 mg/dL (8.5-10.3); CREATININE 1.2 mg/dL (0.4-1.0); MAGNESIUM 2.2 mg/dL (1.7-2.8); TOTAL PROTEIN 5.9 g/dL (6.7-8.2)
[2017-11-03 22:07] LABS: BILIRUBIN,URINE NEGATIVE (NEGATIVE); GLUCOSE, URINE (UA) NEGATIVE (NEGATIVE); KETONES,URINE (UA) NEGATIVE (NEGATIVE); LEUKOCYTE ESTERASE, URINE MODERATE (NEGATIVE); NITRITE,URINE NEGATIVE (NEGATIVE); OCCULT BLOOD,URINE NEGATIVE (NEGATIVE); PROTEIN,URINE TRACE mg/dL (NEGATIVE); UROBILINOGEN,URINE 0.2 (NORMAL) E.U./dL (NORMAL)
[2017-11-03 22:12] LABS: CLARITY,URINE CLEAR (CLEAR)
[2017-11-03 22:17] LABS: SQUAMOUS EPITHELIAL CELL,UR FEW Squamous (<= Few); WBC CLUMPS,URINE PRESENT
[2017-11-03 22:18] LABS: BACTERIA,URINE Few /HPF (None Seen)
[2017-11-03] MEDS ORDERED: CIPROFLOXACIN 250 MG TABLET PO STA (22:20)
[2017-11-03 22:31] VITALS: BP 107/87
--- NOTE | 2017-11-04 11:00 | ED Physician Documentation ---
ED Addendum - Addendum Addendum: Pharmacist called to inform that the patient's records there show allergy to quinolones. Our records also indicate the patient is allergic to sulfa, and she was recently treated with Augmentin which produced diarrhea. I advised the pharmacist to change her prescription to Macrobid, 100 mg twice daily for 5 days. 11/04/17 10:58
== END 2017-11-03 22:31 | disposition home or self-care (01) ==
LOC: ED 20:38
DX: N39.0 Urinary tract infection, site not specified (principal); I48.2 Chronic atrial fibrillation; N18.1 Chronic kidney disease, stage 1; J44.9 Chronic obstructive pulmonary disease, unspecified
CPT/HCPCS: 80053; 81001; 83690; 83735; 84484; 85025; 85610; 87086; 99283; A9270; 81003

== ENCOUNTER 2017-11-10 14:30 | Emergency (ER) | payer MEDICARE, OTHER ==
[2017-11-10 14:38] VITALS: BP 117/71
--- NOTE | 2017-11-10 14:52 | ED Physician Documentation ---
History of Present Illness - Stated complaint Stated Complaint: SOA/SWOLLEN FACE/MED REACTION - Chief complaint Chief Complaint: Cardiac - History obtained from History obtained from: Patient, Family - History of Present Illness Timing: How many weeks ago (several weeks ago) Pain level max: 4 Pain level now: 4 Improved by: nothing Worsened by: nothing - Additonal information Additional information: Patient is an 87-year-old female who was recently started on diltiazem. She states that since that time she is felt like her face has been painful and swollen. States she has sores on her lips. States she told her automobile relocation engineer today [facility] and was sent here for further evaluation and care. She denies any chest pain or shortness of breath to me. She states she has no other complaints at this time. Review of Systems Ten Systems: 10 systems reviewed and negative Constitutional: denies: Fever, Chills Ears: denies: Ear pain Nose: denies: Rhinorrhea / runny nose, Congestion Throat: denies: Sore throat Cardiac: denies: Chest pain / pressure Respiratory: denies: Dyspnea, Cough, Wheezing GI: denies: Abdominal Pain, Nausea, Vomiting, Diarrhea Skin: denies: Rash Musculoskeletal: denies: Neck pain Neurologic: reports: Generalized weakness (states feels tired) PD PAST MEDICAL HISTORY - Past Medical History Cardiovascular: Atrial fibrillation, Arrhythmia Respiratory: COPD, Pneumonia Neuro: None Endocrine/Autoimmune: None GI: GERD, Hiatal hernia : Other HEENT: None Psych: None Musculoskeletal: Osteoarthritis, Osteoporosis Derm: Eczema, Psoriasis, Other - Past Surgical History Past Surgical History: Yes General: Cholecystectomy, Appendectomy, Colonoscopy, EGD Ortho: Hip replacement, Other /CORPORATE SPECIALIST: Tubal ligation, Other Cardiovascular: Other HEENT: Cataracts Derm: Skin cancer surgery - Present Medications Home Medications: Ambulatory Orders Medication Instructions Recorded Confirmed Acetaminophen 650 mg PO BID 07/20/16 10/19/17 Calcium Carbonate/Vitamin D3 1 tab PO DAILY 07/20/16 10/19/17 [Calcium 600-Vit D3 400 Tablet] Multivitamin [Theragran] 1 tab PO DAILY 07/20/16 10/19/17 Biotin 1 cap PO DAILY 04/20/17 10/19/17 Omeprazole 20 mg PO BID 05/11/17 10/19/17 Cyanocobalamin (Vitamin B-12) 1,000 mcg PO DAILY 10/11/17 10/19/17 [Vitamin B-12] Zinc 220 mg PO DAILY 10/11/17 10/19/17 predniSONE [Prednisone] 20 tab PO TID 10/11/17 10/19/17 Ascorbic Acid 500 mg PO DAILY 10/19/17 10/19/17 Ferrous Sulfate 325 mg PO DAILY 10/19/17 10/19/17 Amox/Clav 875/125 [Augmentin] 1 each PO Q12H 5 Days #10 tablet 10/21/17 Saccharomyces Boulardii [Florastor] 250 mg PO BID #60 capsule 10/21/17 diltiaZEM CD [Cardizem Cd] 120 mg PO DAILY #30 capsule 10/21/17 Ciprofloxacin [Cipro] 250 mg PO Q12H #14 tablet 11/03/17 - Allergies Allergies/Adverse Reactions: Allergies Allergy/AdvReac Type Severity Reaction Status Date / Time shrimp Allergy Severe Anaphylaxis Verified 11/03/17 20:46 Sulfa (Sulfonamide Allergy Severe Respiratory Verified 11/03/17 20:46 Antibiotics) [id number] Reductase Allergy Cramps Verified 11/03/17 20:46 Inhibitor metoprolol AdvReac Respiratory Verified 11/03/17 20:46 - Social History Does the pt smoke?: No Smoking Status: Never smoker Does the pt drink ETOH?: Yes Does the pt have substance abuse?: No - Immunizations Immunizations are current?: Yes - POLST Patient has POLST: Yes POLST Status: Full Code PD ED PE NORMAL - Vitals Vital signs reviewed: Yes - General General: Alert and oriented X 3, Other (appears quite anxious) - HEENT HEENT: Moist mucous membranes, Other (2 small sores on her lips. no visible face swelling. no angioedema. ) - Neck Neck: Supple, no meningeal sign - Cardiac Cardiac: RRR, Strong equal pulses - Respiratory Respiratory: No respiratory distress, Clear bilaterally - Abdomen Abdomen: Soft, Non tender, Non distended - Derm Derm: Warm and dry - Extremities Extremities: No edema, No calf tenderness / cord - Neuro Neuro: Alert and oriented X 3 Results - Vitals Vitals: Vital Signs - 24 hr 11/10/17 14:35 Temperature 36 C L Heart Rate 91 Respiratory 18 Rate Blood Pressure 117/71 O2 Saturation 99 Oxygen O2 Source [With Activity] Room air O2 Source Room air - EKG (time done) 1448 Rate: Rate (enter#) (100) Rhythm: Atrial fibrillation [place]: Normal QRS: Normal Ischemia: Normal ST segments PD MEDICAL DECISION MAKING - ED course Complexity details: considered differential, d/w patient ED course: Patient appears to be having adverse reactions to her diltiazem. We will have her stop this medication and see how she progresses. I discussed the case with her automobile relocation engineer who is in agreement with the plan. She has no angioedema, no evidence of anaphylaxis. No toxic epidermal necrolysis or Pack-Jose J syndrome. Patient counseled regarding signs and symptoms for which I believe and urgent re-evaluation would be necessary. Patient with good understanding of and agreement to plan and is comfortable going home at this time This document was made in part using voice recognition software. While efforts are made to proofread this document, sound alike and grammatical errors may occur. - Sepsis Event Vital Signs: Vital Signs - 24 hr 11/10/17 14:35 Temperature 36 C L Heart Rate 91 Respiratory 18 Rate Blood Pressure 117/71 O2 Saturation 99 Oxygen O2 Source [With Activity] Room air O2 Source Room air Departure - Departure Disposition: 01 Home, Self Care Clinical Impression: Allergic reaction caused by a drug Qualifiers: Encounter type: initial encounter Qualified Code(s): T78.40XA - Allergy, unspecified, initial encounter Condition: Good Instructions: ED Drug React Adverse Other Follow-Up: your,doctor in 1 week [Other] Comments: Please stop the diltiazem and follow up with your doctor for further care. You can use benadryl to help with discomfort Discharge Date/Time: 11/10/17 15:10
== END 2017-11-10 15:10 | disposition home or self-care (01) ==
LOC: ED 14:30
DX: T46.1X5A Adverse effect of calcium-channel blockers, initial encounter (principal); R51 Headache; R22.0 Localized swelling, mass and lump, head; K13.0 Diseases of lips; I48.91 Unspecified atrial fibrillation; Z79.52 Long term (current) use of systemic steroids
CPT/HCPCS: 93005; 99281; 99283

== ENCOUNTER 2017-11-26 00:13 | Inpatient (IN) | payer MEDICARE, OTHER ==
--- NOTE | 2017-11-26 00:39 | ED Physician Documentation ---
History of Present Illness - Stated complaint Stated Complaint: EDEMA - Chief complaint Chief Complaint: General - Additonal information Additional information: 87-year-old female presents the emergency department with increasing peripheral edema, shortness of breath and general fatigue. The patient has a history of atrial fibrillation and currently is not on any rate control or anticoagulation. The patient has had reactions to beta-blockers and calcium channel blockers. The patient was supposed to start digoxin but is not taking it due to fears that she will have a reaction to it. The patient reports ongoing racing heart and chest discomfort. The patient's had increased peripheral edema, fatigue and dyspnea on exertion. The patient currently is not on any diuretic. Symptoms are described as severe. No other associated symptoms. No relieving factors. Review of Systems Constitutional: reports: Fatigue. denies: Fever Eyes: denies: Discharge Ears: denies: Ear pain Nose: denies: Congestion Throat: denies: Sore throat Cardiac: reports: Chest pain / pressure, Palpitations, Pedal edema Respiratory: reports: Dyspnea GI: denies: Abdominal Pain : denies: Dysuria Skin: denies: Rash Musculoskeletal: denies: Neck pain Neurologic: reports: Generalized weakness. denies: Syncope Endocrine: reports: Weight gain PD PAST MEDICAL HISTORY - Past Medical History Past Medical History: Yes Cardiovascular: Atrial fibrillation, Arrhythmia Respiratory: COPD, Pneumonia Neuro: None Endocrine/Autoimmune: None GI: GERD, Hiatal hernia : Other HEENT: None Psych: None Musculoskeletal: Osteoarthritis, Osteoporosis Derm: Eczema, Psoriasis, Other - Past Surgical History Past Surgical History: Yes General: Cholecystectomy, Appendectomy, Colonoscopy, EGD Ortho: Hip replacement, Other /[employer]: Tubal ligation, Other Cardiovascular: Other HEENT: Cataracts Derm: Skin cancer surgery - Present Medications Home Medications: Ambulatory Orders Medication Instructions Recorded Confirmed Acetaminophen 650 mg PO BID 07/20/16 10/19/17 Calcium Carbonate/Vitamin D3 1 tab PO DAILY 07/20/16 10/19/17 [Calcium 600-Vit D3 400 Tablet] Multivitamin [Theragran] 1 tab PO DAILY 07/20/16 10/19/17 Biotin 1 cap PO DAILY 04/20/17 10/19/17 Omeprazole 20 mg PO BID 05/11/17 10/19/17 Cyanocobalamin (Vitamin B-12) 1,000 mcg PO DAILY 10/11/17 10/19/17 [Vitamin B-12] Zinc 220 mg PO DAILY 10/11/17 10/19/17 predniSONE [Prednisone] 20 tab PO TID 10/11/17 10/19/17 Ascorbic Acid 500 mg PO DAILY 10/19/17 10/19/17 Ferrous Sulfate 325 mg PO DAILY 10/19/17 10/19/17 Amox/Clav 875/125 [Augmentin] 1 each PO Q12H 5 Days #10 tablet 10/21/17 Saccharomyces Boulardii [Florastor] 250 mg PO BID #60 capsule 10/21/17 [id number] CD [Cardizem Cd] 120 mg PO DAILY #30 capsule 10/21/17 Ciprofloxacin [Cipro] 250 mg PO Q12H #14 tablet 11/03/17 - Allergies Allergies/Adverse Reactions: Allergies Allergy/AdvReac Type Severity Reaction Status Date / Time shrimp Allergy Severe Anaphylaxis Verified 11/26/17 00:33 Sulfa (Sulfonamide Allergy Severe Respiratory Verified 11/26/17 00:33 Antibiotics) [id number]-Erd-Eil Reductase Allergy Cramps Verified 11/26/17 00:33 Inhibitor metoprolol AdvReac Respiratory Verified 11/26/17 00:33 - Social History Does the pt smoke?: No Smoking Status: Never smoker Does the pt drink ETOH?: Yes Does the pt have substance abuse?: No - Immunizations Immunizations are current?: Yes - POLST Patient has POLST: Yes POLST Status: Full Code PD ED PE NORMAL - General General: Alert and oriented X 3 - HEENT HEENT: Atraumatic, PERRL, EOMI, Ears normal (wq) - Neck Neck: Supple, no meningeal sign - Respiratory Respiratory: Other (rales at the bases) - Abdomen Abdomen: Soft, Non tender - Derm Derm: Normal color - Extremities Extremities: No deformity. No: No edema (2 + b/l edeam) - Neuro Neuro: Alert and oriented X 3, Normal speech - Psych Psych: Normal affect PD ED PE EXPANDED - Cardiac Cardiac: Tachy, Irregularly irregular Results - Vitals Vitals: Vital Signs - 24 hr 11/26/17 11/26/17 11/26/17 00:31 00:55 01:00 Temperature 35.7 C L Heart Rate 106 H 105 H 104 H Respiratory 17 16 17 Rate Blood Pressure 111/81 H 115/85 H O2 Saturation 100 98 100 10/20/18 10/20/18 01:23 01:32 Temperature Heart Rate 103 H 109 H Respiratory 18 18 Rate Blood Pressure 115/86 H 110/75 O2 Saturation 99 98 Oxygen O2 Source [] Room air O2 Source Room air - EKG (time done) 00:21 Rate: Rate (enter#) Rhythm: Atrial fibrillation QRS: Normal Ischemia: Non specific changes Other comments: Other comments (Atrial fibrillation with rapid ventricular response) - Labs Labs: Laboratory Tests 11/26/17 11/26/17 11/26/17 00:50 00:50 00:50 WBC 12.2 H RBC 3.44 L Hgb 11.1 L Hct 34.1 L MCV 98.9 MCH 32.3 H MCHC 32.6 RDW 17.1 H Plt Count 276 MPV 8.0 Neut # (Auto) 10.2 H Lymph # (Auto) 0.9 L [place] # (Auto) 1.0 Eos # (Auto) 0.1 Baso # (Auto) 0.1 Absolute Nucleated RBC 0.01 Nucleated RBC % 0.1 PT 11.0 INR 1.0 APTT 23.5 L Sodium 138 Potassium 3.9 Chloride 104 Carbon Dioxide 25 Anion Gap 9.0 BUN 34 H Creatinine 1.4 H Estimated GFR (MDRD) 35 L Glucose 121 H Calcium 9.4 Total Bilirubin < 0.2 L AST 21 ALT 41 Alkaline Phosphatase 48 Troponin I B-Natriuretic Peptide Total Protein 6.2 L Albumin 3.4 Globulin 2.8 Albumin/Globulin Ratio 1.2 Lipase 139 H 11/26/17 11/26/17 00:50 00:50 WBC RBC Hgb Hct MCV MCH MCHC RDW Plt Count MPV Neut # (Auto) Lymph # (Auto) [place] # (Auto) Eos # (Auto) Baso # (Auto) Absolute Nucleated RBC Nucleated RBC % PT INR APTT Sodium Potassium Chloride Carbon Dioxide Anion Gap BUN Creatinine Estimated GFR (MDRD) Glucose Calcium Total Bilirubin AST ALT Alkaline Phosphatase Troponin I 0.04 B-Natriuretic Peptide 486 H Total Protein Albumin Globulin Albumin/Globulin Ratio Lipase - Rads (name of study) CXR Radiology: Final report received PD MEDICAL DECISION MAKING - ED course ED course: The patient has multiple acute issues and is under medically managed. Given the patient's age and fragility and chronic renal disease she will require admission to the hospital for medical management. The findings and plan were discussed the patient who understands and agrees. The case was discussed with Dr. Sanchez the hospitalist who accepts the patient onto his service. Departure - Departure Disposition: ED Place in Observation Clinical Impression: Atrial fibrillation with RVR Volume overload Qualifiers: Hypervolemia type: unspecified Qualified Code(s): E87.70 - Fluid overload, unspecified Dyspnea Qualifiers: Dyspnea type: dyspnea on exertion Qualified Code(s): R06.09 - Other forms of dyspnea Chest pain Qualifiers: Chest pain type: unspecified Qualified Code(s): R07.9 - Chest pain, unspecified Chronic kidney disease Qualifiers: Chronic kidney disease stage: unspecified stage Qualified Code(s): N18.9 - Chronic kidney disease, unspecified Condition: Fair
[2017-11-26] MEDS ORDERED: diltiaZEM INJ 5 MG/ML VIAL IVP STA ×2 (00:43→01:53)
[2017-11-26 01:04] LABS: BASOPHILS # (AUTO) 0.1 10^3/uL (0.0-0.1); BASOPHILS % (AUTO) 0.5 %; EOSINOPHILS # (AUTO) 0.1 10^3/uL (0.0-0.7); EOSINOPHILS % (AUTO) 0.5 %; HGB - HEMOGLOBIN 11.1 g/dL (12.0-16.0); LYMPHOCYTES # (AUTO) 0.9 10^3/uL (1.5-3.5); LYMPHOCYTES % (AUTO) 7.4 %; MEAN CORPUSCULAR HEMOGLOBIN 32.3 pg (27.0-31.0); MEAN CORPUSCULAR HGB CONC 32.6 g/dL (32.0-36.0); MEAN CORPUSCULAR VOLUME 98.9 fL (81.0-99.0); MONOCYTES % (AUTO) 8.1 %; NEUTROPHILS # (AUTO) 10.2 10^3/uL (1.5-6.6); NEUTROPHILS % (AUTO) 83.5 %; PLT - PLATELET COUNT 276 10^3/uL (130-450); RED BLOOD COUNT 3.44 10^6/uL (4.20-5.40); RED CELL DISTRIBUTION WIDTH 17.1 % (12.0-15.0); WHITE BLOOD COUNT 12.2 x10^3/uL (4.8-10.8)
[2017-11-26 01:12] LABS: ALBUMIN 3.4 g/dL (3.2-5.5); ALBUMIN/GLOBULIN RATIO 1.2 (1.0-2.2); ALKALINE PHOSPHATASE 48 IU/L (42-121); ALT ALANINE AMINOTRANSFERASE 41 IU/L (10-60); AST ASPARTATE AMINOTRANSFERASE 21 IU/L (10-42); BILIRUBIN,TOTAL < 0.2 mg/dL (0.2-1.0); BUN - BLOOD UREA NITROGEN 34 mg/dL (6-20); CALCIUM 9.4 mg/dL (8.5-10.3); CARBON DIOXIDE - CO2 25 mmol/L (21-32); CHLORIDE 104 mmol/L (101-111); CREATININE 1.4 mg/dL (0.4-1.0); GFR - MDRD 35 (>89); GLUCOSE 121 mg/dL (70-100); LIPASE 139 U/L (22-51); SODIUM 138 mmol/L (135-145); TOTAL PROTEIN 6.2 g/dL (6.7-8.2)
[2017-11-26] MEDS ORDERED: FUROSEMIDE 20 MG/2 ML VIAL IVP STA (01:14)
[2017-11-26] MEDS ORDERED: DIGOXIN 500 MCG/2 ML AMP IVP STA ×2 (01:15→02:36)
[2017-11-26] MEDS ORDERED: ENOXAPARIN 60 MG/0.6 ML SYRINGE SUBQ STA (01:41)
--- NOTE | 2017-11-26 01:44 | XRAY Report ---
Reason: leg swelling, h/o chf Procedure Date: 11/26/2017 Accession Number: [id number] / [id number] Procedure: XR - Chest 2 View X-Ray CPT Code: 63938 FULL RESULT: EXAM: CHEST RADIOGRAPHY EXAM DATE: 11/26/2017 01:20 AM. CLINICAL HISTORY: Leg swelling, h/o chf. COMPARISON: CHEST 2 VIEW 10/18/2017 3:09 PM. TECHNIQUE: 2 views. FINDINGS: Lungs/Pleura: No focal opacities evident. No pleural effusion. No pneumothorax. Normal volumes. Mediastinum: The heart is at the upper limits of normal in size. There is no lymphadenopathy. Other: There is thoracic kyphosis. IMPRESSION: 1. No acute infiltrates. RADIA
[2017-11-26] MEDS ORDERED: ZOLPIDEM 5 MG TABLET PO PRN (01:53)
[2017-11-26] MEDS ORDERED: ONDANSETRON 4 MG/2 ML VIAL IVP PRN (01:53)
[2017-11-26] MEDS ORDERED: ACETAMINOPHEN 325 MG TABLET PO PRN (01:53)
[2017-11-26] MEDS ORDERED: oxyCODONE 5 MG TABLET PO PRN ×2 (01:53)
[2017-11-26] MEDS ORDERED: PROMETHAZINE 25 MG/1 ML VIAL IM PRN (01:53)
[2017-11-26] MEDS ORDERED: PROCHLORPERAZINE 10 MG/2 ML VIAL IVP PRN (01:53)
[2017-11-26] MEDS ORDERED: IPRATROPIUM/ALBUTEROL 3 ML NEB INH PRN (01:58)
--- NOTE | 2017-11-26 02:06 | HISTORY & PHYSICAL EXAMINATION ---
Chief Complaint - Chief Complaint Chief Complaint: Increased lower extremity swelling History of Present Illness - Admitted From Admitted From:: Emergency Department - History Obtained From Records Reviewed: Yes History obtained from: Patient and medical records Exam Limitations: None - History of Present Illness HPI Comment/Other: Patient is a pleasant 87-year-old female with a past medical history significant for mild dementia, polymyalgia rheumatica on chronic steroids, COPD, SVT status post ablation, osteoarthritis, psoriasis, right-sided heart failure and recently diagnosed atrial fibrillation who presented to the emergency department with a chief complaint of increased lower extremity swelling. The patient was recently hospitalized at [facility] from 10/19/2017 till 10/21/2017 with a urinary tract infection and at the same time was found to have atrial fibrillation with a rapid ventricular rate. At that time she was started on diltiazem and discharged home with it for rate control. The patient states that after being on the diltiazem for a few weeks she developed mouth sores, bleeding from the mouth and swelling of the face. 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 The patient stopped the diltiazem and had a follow-up appointment with her jackaroo Dr. Vigil who gave the patient a prescription for digoxin which the patient never filled. The patient states now for the last 5 days she has been having increasing lower extremity swelling, shortness of breath with exertion and generalized weakness. She states that she is having a hard time just standing up from her chair due to a heavy feeling in her legs. She states that she is not able to do as much a ctivity as she normally does. She states that she normally she is able to do all her housework and cleaning the home. She states over the last few weeks she has been unable to do any of this. The patient denies any cough or wheezing. The patient states that the reason that she came into the hospital tonight was because when she was laying in bed she began to develop chest pain. She states that she was having chest pain that was located on the left chest and got worse when she got up. She states that it was more like a tightness in her chest than a sharp pain. She states that it was about a 5 out of 10 at its worst. She states that it is still there but is much less in intensity. She denies getting any chest pain with exertion. She denies feeling nausea or diaphoresis along with this chest pain. She does admit to orthopnea the last few days. Patient denies any headaches, blurred vision, runny nose, sore throat, nasal congestion, difficulty swallowing, fevers, chills, abdominal pain, vomiting, diarrhea, constipation, urinary urgency, urinary frequency, dysuria, muscle aches, back pain, neck stiffness, recent unintentional weight loss, changes in her appetite, hair loss, skin changes, polyuria, polydipsia, night sweats or any focal neurologic deficits. On presentation to the emergency department the patient was afebrile and tachycardic with heart rate of 106 which would get as high as the 120s on telemetry while she was in the emergency department. Patient's blood pressure was 111/81 and she was not in any respiratory distress and saturating well on room air. The patient's exam revealed significant lower extremity swelling. The patient's BNP was elevated at 486. The patient's troponin was negative and EKG showed atrial fibrillation with a rapid ventricular rate but no ST elevations or ischemic changes. The emergency room physician tried to give the patient diltiazem in the emergency department however the patient refused due to allergy. The patient was also given a dose of IV Lasix with which she did urinate and states she felt slightly better after urinating specifically with regards to her chest pain. The patient was admitted to the [facility] for what appears to be CHF exacerbation, atrial fibrillation with rapid ventricular rate and chest pain. 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 Living arrangement: At home Living Situation: With spouse/s.o. Social History Notes: The patient is to her and they live together in their home. Her suffers from dementia. 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 She had 4 children 1 of whom has the other 3 are dispersed throughout the country. She has 1 child in [place], one in [place] and one in [facility]. She and her lived in [place] for 44 years and moved would be [place] 22 years ago for shelter. She and her live in a home on [address]. The patient states that she is able to perform most of her activities of daily living prior to the last couple of weeks. They have a dog in the home. The patient has been to her for 68 years. She is a former smoker and smoked 1 pack a day for more than 65 years. She quit smoking about 5 years ago. She has no history of alcohol abuse and denies any illicit drug use. - Substance History Use: Uses substance without health or social issues: NONE - POLST Patient has POLST: Yes POLST Status: DNR Meds/Allgy - Home Medications Home Medications: Ambulatory Orders Medication Instructions Recorded Confirmed Acetaminophen 650 mg PO BID 07/20/16 10/19/17 Calcium Carbonate/Vitamin D3 1 tab PO DAILY 07/20/16 10/19/17 [Calcium 600-Vit D3 400 Tablet] Multivitamin [Theragran] 1 tab PO DAILY 07/20/16 10/19/17 Biotin 1 cap PO DAILY 04/20/17 10/19/17 Omeprazole 20 mg PO BID 05/11/17 10/19/17 Cyanocobalamin (Vitamin B-12) 1,000 mcg PO DAILY 10/11/17 10/19/17 [Vitamin B-12] Zinc 220 mg PO DAILY 10/11/17 10/19/17 predniSONE [Prednisone] 20 tab PO TID 10/11/17 10/19/17 Ascorbic Acid 500 mg PO DAILY 10/19/17 10/19/17 Ferrous Sulfate 325 mg PO DAILY 10/19/17 10/19/17 Amox/Clav 875/125 [Augmentin] 1 each PO Q12H 5 Days #10 tablet 10/21/17 Saccharomyces Boulardii [Florastor] 250 mg PO BID #60 capsule 10/21/17 diltiaZEM CD [Cardizem Cd] 120 mg PO DAILY #30 capsule 10/21/17 Ciprofloxacin [Cipro] 250 mg PO Q12H #14 tablet 11/03/17 - Allergies Allergies/Adverse Reactions: Allergies Allergy/AdvReac Type Severity Reaction Status Date / Time diltiazem Allergy Severe Rash Verified 11/26/17 02:40 shrimp Allergy Severe Anaphylaxis Verified 11/26/17 00:33 Sulfa (Sulfonamide Allergy Severe Respiratory Verified 11/26/17 00:33 Antibiotics) Mrbokbi-Xaw-Aot Reductase Allergy Cramps Verified 11/26/17 00:33 Inhibitor metoprolol AdvReac Respiratory Verified 11/26/17 00:33 Review of Systems - Other Findings Other Findings: A comprehensive review of systems was performed the pertinent positives and negatives are stated above in the HPI and the remainder of the review of systems is negative. Prior Level of Functionality: Patient was previously able to ambulate without an assistance device and was able to perform all her activities of daily living. She states however over the last 2 weeks she has had a significant decline. She states that she is having a hard time just getting up from a chair and has been too short of breath or fatigued to do the housework. Exam - Vital Signs Reviewed Vital Signs: Yes Vital Signs: Vital Signs x48h Temp Pulse Resp BP Pulse Ox 11/26/17 01:59 36.6 C 100 14 113/85 H 99 11/26/17 01:32 109 H 18 110/75 98 11/26/17 01:23 103 H 18 115/86 H 99 11/26/17 01:00 104 H 17 115/85 H 100 11/26/17 00:55 105 H 16 98 11/26/17 00:31 35.7 C L 106 H 17 111/81 H 100 - Physical Exam General Appearance: positive: No acute distress, Alert, Other (Mild memory impairment) Eyes Bilateral: positive: Normal inspection, PERRL, EOMI, No lid inflammation, Conjunctivae nml, No scleral icterus ENT: positive: ENT inspection nml, Pharynx nml, No signs of dehydration. negative: Purulent nasal drainage, Pharyngeal erythema, Oral lesions Neck: positive: Nml inspection, Thyroid nml, Trachea midline. negative: Lymphadenopathy (R), Lymphadenopathy (L), Stiff neck, Carotid bruit, Tracheal deviation Respiratory: positive: Chest non-tender, No respiratory distress, Rales (Bases). negative: Wheezes Cardiovascular: positive: No gallop, Irregularly irregular, Tachycardia, Systolic murmur Peripheral Pulses: positive: 2+ Abdomen: positive: Non-tender, No organomegaly, Nml bowel sounds, No distention. negative: Guarding, Rebound, Hepatomegaly Back: positive: Nml inspection. negative: CVA tenderness (R), CVA tenderness (L) Skin: positive: Color nml, No rash, Warm, Dry, Other (Shiny skin of lower extremities) Extremities: positive: Non-tender, Full ROM, Pedal edema (BIlateral 2+ pitting edema worse at the ankles but up to the upper shins) Neurologic/Psychiatric: positive: Oriented x3, CN's nml (2-12), Motor nml, Sensation nml, Mood/affect nml Conclusion/Plan - Problem List (1) Acute exacerbation of congestive heart failure Conclusion/Plan: The patient has a preserved ejection fraction on her most recent echocardiogram but does appear to have some right-sided heart failure. She likely has pulmonary hypertension secondary to COPD along with tricuspid regurgitation which is causing her to have right-sided heart failure. The patient presents with symptoms of right-sided heart failure with increased lower extremity swelling over the last 5 days. She also has some shortness of breath with exertion. On presentation the patient does have lower extremity swelling, some crackles in her lungs and chest pain. The patient's CHF exacerbation is likely secondary to her uncontrolled atrial fibrillation as she was not on any rate control agents for the last few weeks and presented with A. fib RVR. Plan: IV Lasix twice daily Telemetry monitoring Serial troponins Fluid restriction 1800 mL 2 g sodium restriction Daily weights Strict I's and O's Qualifiers: Heart failure type: right-sided Qualified Code(s): I50.813 - Acute on chronic right heart failure (2) Chest pain Conclusion/Plan: The patient woke up with left-sided chest pain this morning. She stated it got worse when she got up. She denied any diaphoresis nausea or radiation of the chest pain. It did improve when she got Lasix in the emergency department. The patient's initial EKG and troponin were negative. It appears the patient's chest pain is atypical and likely related to her CHF exacerbation or her atrial fibrillation with rapid ventricular rate. Plan: Serial troponins Telemetry monitoring Aspirin Patient has allergy to statins Patient had an echocardiogram just 1 month ago we will consider a new echo if patient has any change in her troponin or chest pain continues. Qualifiers: Chest pain type: unspecified Qualified Code(s): R07.9 - Chest pain, unspecified (3) Atrial fibrillation with rapid ventricular response Conclusion/Plan: The patient was recently diagnosed with atrial fibrillation on hospitalization in October. She was taking diltiazem for rate control however she had a reaction to the medication says that she had Pack-Jose J syndrome and it was stopped. She is recently seen by her jackaroo who put her on digoxin but the patient did not fill the prescription. Therefore on presentation the patient is in atrial fibrillation with rapid ventricular rate which varies from the low 100s up to 120s. The patient appears to be in A. fib RVR due to noncompliance with her medication. Likely the patient's atrial fibrillation with rapid ventricular rate is what is putting her into congestive heart failure exacerbation at this time. The patient's [id number] score is 4 which puts her at a stroke risk of 4.8 %/year and she would benefit from anticoagulation. Plan: Start patient on digoxin load then start oral digoxin Monitor digoxin level Better control of volume status with IV Lasix Start patient on Coumadin and monitor INR Telemetry monitoring (4) Chronic kidney disease, stage 3 Conclusion/Plan: The patient has a history of CKD stage III with a GFR of between 35 and 40. On presentation today the patient's creatinine is 1.4 which is near her baseline. Stable Avoid nephrotoxic agents Monitor creatinine (5) COPD (chronic obstructive pulmonary disease) Conclusion/Plan: The patient has a history of COPD but does not appear to be on any inhalers at home. The patient currently does not appear to be in a COPD exacerbation as she is not wheezing nor is she hypoxic. The patient is a former smoker but has quit 5 years ago. The patient will be placed on duo nebs as needed. The patient is on chronic steroids for her polymyalgia rheumatica which will also be continued. Qualifiers: COPD type: unspecified COPD Qualified Code(s): J44.9 - Chronic obstructive pulmonary disease, unspecified (6) Polymyalgia rheumatica Conclusion/Plan: Patient has a history of polymyalgia rheumatica and is on chronic steroids 3 times a day. She will be continued on her home dose and will continue to my order her for symptoms. (7) GERD (gastroesophageal reflux disease) Conclusion/Plan: The patient has a history of GERD and takes omeprazole at home. While she is hospitalized here she will be placed on Protonix. In the emergency department the patient was complaining of some gas and acid reflux. - Lab Results Lab results reviewed: Yes Fish Bones: 11/26/17 00:50 11/26/17 00:50 Other Lab Results: Laboratory Results WBC 12.2 x10^3/uL (4.8-10.8) H 11/26/17 00:50 RBC 3.44 10^6/uL (4.20-5.40) L 11/26/17 00:50 Hgb 11.1 g/dL (12.0-16.0) L 11/26/17 00:50 Hct 34.1 % (37.0-47.0) L 11/26/17 00:50 MCV 98.9 fL (81.0-99.0) 11/26/17 00:50 MCH 32.3 pg (27.0-31.0) H 11/26/17 00:50 MCHC 32.6 g/dL (32.0-36.0) 11/26/17 00:50 RDW 17.1 % (12.0-15.0) H 11/26/17 00:50 Plt Count 276 10^3/uL (130-450) 11/26/17 00:50 MPV 8.0 fL (7.9-10.8) 11/26/17 00:50 Neut # (Auto) 10.2 10^3/uL (1.5-6.6) H 11/26/17 00:50 Lymph # (Auto) 0.9 10^3/uL (1.5-3.5) L 11/26/17 00:50 [place] # (Auto) 1.0 10^3/uL (0.0-1.0) 11/26/17 00:50 Eos # (Auto) 0.1 10^3/uL (0.0-0.7) 11/26/17 00:50 Baso # (Auto) 0.1 10^3/uL (0.0-0.1) 11/26/17 00:50 Absolute Nucleated RBC 0.01 x10^3/uL 11/26/17 00:50 Nucleated RBC % 0.1 /100WBC 11/26/17 00:50 PT 11.0 secs (9.9-12.6) 11/26/17 00:50 INR 1.0 (0.8-1.2) 11/26/17 00:50 APTT 23.5 secs (24.9-33.3) L 11/26/17 00:50 Sodium 138 mmol/L (135-145) 11/26/17 00:50 Potassium 3.9 mmol/L (3.5-5.0) 11/26/17 00:50 Chloride 104 mmol/L (101-111) 11/26/17 00:50 Carbon Dioxide 25 mmol/L (21-32) 11/26/17 00:50 Anion Gap 9.0 (6-13) 11/26/17 00:50 BUN 34 mg/dL (6-20) H 11/26/17 00:50 Creatinine 1.4 mg/dL (0.4-1.0) H 11/26/17 00:50 Estimated GFR (MDRD) 35 (>89) L 11/26/17 00:50 Glucose 121 mg/dL (70-100) H 11/26/17 00:50 Calcium 9.4 mg/dL (8.5-10.3) 11/26/17 00:50 Total Bilirubin < 0.2 mg/dL (0.2-1.0) L 11/26/17 00:50 AST 21 IU/L (10-42) 11/26/17 00:50 ALT 41 IU/L (10-60) 11/26/17 00:50 Alkaline Phosphatase 48 IU/L (42-121) 11/26/17 00:50 Troponin I 0.04 ng/mL (<0.49) 11/26/17 00:50 B-Natriuretic Peptide 486 pg/mL (5-100) H 11/26/17 00:50 Total Protein 6.2 g/dL (6.7-8.2) L 11/26/17 00:50 Albumin 3.4 g/dL (3.2-5.5) 11/26/17 00:50 Globulin 2.8 g/dL (2.1-4.2) 11/26/17 00:50 Albumin/Globulin Ratio 1.2 (1.0-2.2) 11/26/17 00:50 Lipase 139 U/L (22-51) H 11/26/17 00:50 - Diagnostic Imaging Results Diagnostic Imaging Results: positive: Final report reviewed Diagnostic Imaging Results Comments: Chest x-ray Impression: 1. No acute infiltrates. - EKG Results EKG Interpreted Independently: Yes EKG Findings: Atrial fibrillation with a rapid ventricular rate, no ST elevations or ischemic changes noted. Core Measures - Anticipated LOS I expect patient to be DC'd or transferred within 96 hours.: Yes - DVT/VTE - Prophylaxis VTE/DVT Prophylaxis med ordered at admit?: Yes
[2017-11-26] MEDS: SODIUM CHLORIDE FLUSH 0.9% 10 ML SYRINGE IVP PRN ×2 (03:21→06:38)
[2017-11-26] MEDS ORDERED: predniSONE 20 MG TABLET PO SCH (06:00)
[2017-11-26] MEDS: PANTOPRAZOLE 40 MG TABLET PO SCH (06:35)
[2017-11-26 06:37] LABS: BASOPHILS # (AUTO) 0.1 10^3/uL (0.0-0.1); BASOPHILS % (AUTO) 0.9 %; EOSINOPHILS % (AUTO) 0.3 %; HGB - HEMOGLOBIN 11.4 g/dL (12.0-16.0); LYMPHOCYTES # (AUTO) 1.1 10^3/uL (1.5-3.5); LYMPHOCYTES % (AUTO) 9.7 %; MEAN CORPUSCULAR HEMOGLOBIN 32.7 pg (27.0-31.0); MEAN CORPUSCULAR HGB CONC 33.4 g/dL (32.0-36.0); MEAN CORPUSCULAR VOLUME 97.9 fL (81.0-99.0); MEAN PLATELET VOLUME 7.8 fL (7.9-10.8); MONOCYTES % (AUTO) 8.5 %; NEUTROPHILS # (AUTO) 9.4 10^3/uL (1.5-6.6); NEUTROPHILS % (AUTO) 80.6 %; PLT - PLATELET COUNT 269 10^3/uL (130-450); RED BLOOD COUNT 3.47 10^6/uL (4.20-5.40); RED CELL DISTRIBUTION WIDTH 16.5 % (12.0-15.0); WHITE BLOOD COUNT 11.7 x10^3/uL (4.8-10.8)
[2017-11-26 06:42] LABS: PT - PROTHROMBIN TIME 11.8 secs (9.9-12.6)
[2017-11-26 07:01] LABS: ALBUMIN 3.4 g/dL (3.2-5.5); ALBUMIN/GLOBULIN RATIO 1.3 (1.0-2.2); BILIRUBIN,TOTAL 0.6 mg/dL (0.2-1.0); CALCIUM 9.2 mg/dL (8.5-10.3); CREATININE 1.3 mg/dL (0.4-1.0); MAGNESIUM 2.1 mg/dL (1.7-2.8)
[2017-11-26] MEDS: ASPIRIN 325 MG TABLET PO SCH (07:53)
[2017-11-26] MEDS ORDERED: diltiaZEM CD 120 MG CAPSULE PO SCH (09:00)
[2017-11-26] MEDS ORDERED: FUROSEMIDE 40 MG/4 ML VIAL IVP SCH (09:00)
[2017-11-26] MEDS ORDERED: ENOXAPARIN 40 MG/0.4 ML SYRINGE SUBQ SCH (09:00)
[2017-11-26] MEDS: DIGOXIN 500 MCG/2 ML AMP IVP SCH ×2 (09:20→15:15)
[2017-11-26] MEDS: ENOXAPARIN 30 MG/0.3 ML SYRINGE SUBQ SCH (09:20)
[2017-11-26] MEDS: MULTIVITAMIN TABLET PO SCH (09:23)
[2017-11-26] MEDS: ZINC SULFATE 220 MG CAPSULE PO SCH (09:23)
[2017-11-26] MEDS: FERROUS SULFATE 325 MG TABLET PO SCH (09:23)
[2017-11-26] MEDS: POLYETHYLENE GLYCOL 3350 17 GM PACKET PO SCH (09:24)
[2017-11-26] MEDS: SODIUM CHLORIDE FLUSH 0.9% 10 ML SYRINGE IVP SCH ×2 (09:24→16:36)
[2017-11-26] MEDS ORDERED: MORPHINE 2 MG/ML CARPUJECT IVP PRN (09:36)
[2017-11-26] MEDS ORDERED: GI COCKTAIL 120 ML BOTTLE PO PRN (09:39)
[2017-11-26] MEDS ORDERED: NITROGLYCERIN SL 0.4 MG TABLET SL PRN (09:39)
[2017-11-26] MEDS ORDERED: WARFARIN 5 MG TABLET PO SCH ×2 (10:00→14:00)
[2017-11-26] MEDS: DIGOXIN 125 MCG TABLET PO SCH (15:14)
[2017-11-26] MEDS: FUROSEMIDE 40 MG/4 ML VIAL IVP SCH (16:36)
[2017-11-27] MEDS: SODIUM CHLORIDE FLUSH 0.9% 10 ML SYRINGE IVP PRN ×2 (00:23→06:26)
[2017-11-27] MEDS: SODIUM CHLORIDE FLUSH 0.9% 10 ML SYRINGE IVP SCH ×2 (00:30→09:58)
[2017-11-27] MEDS: PANTOPRAZOLE 40 MG TABLET PO SCH (06:24)
[2017-11-27] MEDS: FUROSEMIDE 40 MG/4 ML VIAL IVP SCH (06:24)
[2017-11-27 07:01] LABS: BASOPHILS # (AUTO) 0.1 10^3/uL (0.0-0.1); BASOPHILS % (AUTO) 0.5 %; EOSINOPHILS # (AUTO) 0.1 10^3/uL (0.0-0.7); EOSINOPHILS % (AUTO) 0.7 %; HGB - HEMOGLOBIN 11.7 g/dL (12.0-16.0); LYMPHOCYTES # (AUTO) 1.3 10^3/uL (1.5-3.5); LYMPHOCYTES % (AUTO) 13.6 %; MEAN CORPUSCULAR HEMOGLOBIN 32.5 pg (27.0-31.0); MEAN CORPUSCULAR HGB CONC 33.1 g/dL (32.0-36.0); MEAN CORPUSCULAR VOLUME 98.4 fL (81.0-99.0); MEAN PLATELET VOLUME 8.1 fL (7.9-10.8); MONOCYTES # (AUTO) 0.9 10^3/uL (0.0-1.0); MONOCYTES % (AUTO) 9.5 %; NEUTROPHILS # (AUTO) 7.4 10^3/uL (1.5-6.6); NEUTROPHILS % (AUTO) 75.7 %; PLT - PLATELET COUNT 274 10^3/uL (130-450); RED CELL DISTRIBUTION WIDTH 16.3 % (12.0-15.0); WHITE BLOOD COUNT 9.8 x10^3/uL (4.8-10.8)
[2017-11-27 07:16] LABS: ALBUMIN/GLOBULIN RATIO 1.2 (1.0-2.2); BILIRUBIN,TOTAL 0.5 mg/dL (0.2-1.0); CALCIUM 8.6 mg/dL (8.5-10.3); CREATININE 1.4 mg/dL (0.4-1.0); TOTAL PROTEIN 5.5 g/dL (6.7-8.2)
[2017-11-27 07:23] LABS: INR 1.1 (0.8-1.2); PT - PROTHROMBIN TIME 12.7 secs (9.9-12.6)
[2017-11-27 07:39] VITALS: BP 97/55
[2017-11-27] MEDS ORDERED: POTASSIUM CHLORIDE 20 MEQ TABLET PO ONE (07:58)
[2017-11-27] MEDS: DIGOXIN 125 MCG TABLET PO SCH (09:00)
[2017-11-27] MEDS ORDERED: predniSONE 5 MG TABLET PO SCH (09:00)
[2017-11-27] MEDS: MULTIVITAMIN TABLET PO SCH (09:56)
[2017-11-27] MEDS: ZINC SULFATE 220 MG CAPSULE PO SCH (09:56)
[2017-11-27] MEDS: FERROUS SULFATE 325 MG TABLET PO SCH (09:56)
[2017-11-27] MEDS: ENOXAPARIN 30 MG/0.3 ML SYRINGE SUBQ SCH (09:57)
[2017-11-27] MEDS: ASPIRIN 325 MG TABLET PO SCH (09:57)
[2017-11-27] MEDS: POLYETHYLENE GLYCOL 3350 17 GM PACKET PO SCH (10:04)
--- NOTE | 2017-11-27 12:55 | Discharge Plan ---
Discharge Plan Disposition: Home, Self Care Condition: Poor Prescriptions: Digoxin [Lanoxin] 125 mcg PO DAILY #7 tablet Furosemide [Lasix] 20 mg PO DAILY #10 tablet Diet: Regular Activity Restrictions: Activity as Tolerated Shower Restrictions: No (fall precaution) Instruction Topics: Digoxin, Furosemide tablets Additional Instructions or Follow Up instructions: You may follow up your PCP in one week and follow up your full stack net developer as out- pt. You do not want any blood thinner at this point, and you would like to discuss with PCP. Your bilateral ankle swelling is resolved. Should your symptoms return or worsen, you may present ER or call 911 for help. No Smoking: If you smoke, Please STOP! Call for help. Follow-up with: VENUS BUCKLEY [Primary Care Provider] -
--- NOTE | 2017-11-27 13:08 | DISCHARGE SUMMARY ---
Discharge Summary Discharge Date: 11/27/17 Discharging Provider: TUTTLE Primary Care Provider: Dr. Carreno Condition at Discharge: Poor Discharge Disposition: 01 Home, Self Care Discharge Facility Name: home - DIAGNOSES Admission Diagnoses: (1) Acute exacerbation of congestive heart failure (2) Chest pain (3) Atrial fibrillation with rapid ventricular response (4) Chronic kidney disease, stage 3 (5) COPD (chronic obstructive pulmonary disease) (6) Polymyalgia rheumatica (7) GERD (gastroesophageal reflux disease) Discharge Diagnoses with Status of Each Condition: (1) Acute exacerbation of congestive heart failure pt's ankle swelling is totally resolved. pt is prescribed lower dosage of Lasix. pt strongly request to be d/c home. pt refuse any blood thinner. pt desire to talk with her PCP for possible palliative and hospice care (2) Chest pain resolved. serial troponin were negative, EKG is unremarkable. no more chest pain. pt decline any stress test (3) Atrial fibrillation with rapid ventricular response HR is controlled at 80-90. pt denies any symptoms, no palpitation. pt is prescribed Digoxin. Per pt report, her market manager also prescribe Digoxin for her. (4) Chronic kidney disease, stage 3 stable. (5) COPD (chronic obstructive pulmonary disease) stable. 98% sats on room air (6) Polymyalgia rheumatica stable, continue home meds, follow up PCP (7) GERD (gastroesophageal reflux disease) stable, continue home regime, follow up PCP pt decline to have any blood thinner, want to followup PCP for possible palliative and hospice care - HPI History of Present Illness: refer from Dr. Sanchez's HPI on 11/26/17 for pt as the following: Patient is a pleasant 87-year-old female with a past medical history significant for mild dementia, polymyalgia rheumatica on chronic steroids, COPD, SVT status post ablation, osteoarthritis, psoriasis, right-sided heart failure and recently diagnosed atrial fibrillation who presented to the emergency department with a chief complaint of increased lower extremity swelling. The patient was recently hospitalized at [facility] from 10/19/2017 till 10/21/2017 with a urinary tract infection and at the same time was found to have atrial fibrillation with a rapid ventricular rate. At that time she was started on diltiazem and discharged home with it for rate control. The patient states that after being on the diltiazem for a few weeks she developed mouth sores, bleeding from the mouth and swelling of the face. 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 The patient stopped the diltiazem and had a follow-up appointment with her market manager Dr. Vigil who gave the patient a prescription for digoxin which the patient never filled. The patient states now for the last 5 days she has been having increasing lower extremity swelling, shortness of breath with exertion and generalized weakness. She states that she is having a hard time just standing up from her chair due to a heavy feeling in her legs. She states that she is not able to do as much activity as she normally does. She states that she normally she is able to do all her housework and cleaning the home. She states over the last few weeks she has been unable to do any of this. The patient denies any cough or wheezing. The patient states that the reason that she came into the hospital tonight was because when she was laying in bed she began to develop chest pain. She states that she was having chest pain that was located on the left chest and got worse when she got up. She states that it was more like a tightness in her chest than a sharp pain. She states that it was about a 5 out of 10 at its worst. She states that it is still there but is much less in intensity. She denies getting any chest pain with exertion. She denies feeling nausea or diaphoresis along with this chest pain. She does admit to orthopnea the last few days. Patient denies any headaches, blurred vision, runny nose, sore throat, nasal congestion, difficulty swallowing, fevers, chills, abdominal pain, vomiting, diarrhea, constipation, urinary urgency, urinary frequency, dysuria, muscle aches, back pain, neck stiffness, recent unintentional weight loss, changes in her appetite, hair loss, skin changes, polyuria, polydipsia, night sweats or any focal neurologic deficits. On presentation to the emergency department the patient was afebrile and tachycardic with heart rate of 106 which would get as high as the 120s on telemetry while she was in the emergency department. Patient's blood pressure was 111/81 and she was not in any respiratory distress and saturating well on room air. The patient's exam revealed significant lower extremity swelling. The patient's BNP was elevated at 486. The patient's troponin was negative and EKG showed atrial fibrillation with a rapid ventricular rate but no ST elevatio ns or ischemic changes. The emergency room physician tried to give the patient diltiazem in the emergency department however the patient refused due to allergy. The patient was also given a dose of IV Lasix with which she did urinate and states she felt slightly better after urinating specifically with regards to her chest pain. The patient was [facility] the [facility] for what appears to be CHF exacerbation, atrial fibrillation with rapid ventricular rate and chest pain. - ALLERGIES Allergies/Adverse Reactions: Allergies Allergy/AdvReac Type Severity Reaction Status Date / Time diltiazem Allergy Severe Rash Verified 11/26/17 02:40 shrimp Allergy Severe Anaphylaxis Verified 11/26/17 00:33 Sulfa (Sulfonamide Allergy Severe Respiratory Verified 11/26/17 00:33 Antibiotics) Chjerbm-Gnf-Uap Reductase Allergy Cramps Verified 11/26/17 00:33 Inhibitor metoprolol AdvReac Respiratory Verified 11/26/17 00:33 - MEDICATIONS Home Medications: Ambulatory Orders Medication Instructions Recorded Confirmed Acetaminophen 650 mg PO BID 07/20/16 11/26/17 Calcium Carbonate/Vitamin D3 1 tab PO BID 07/20/16 11/26/17 [Calcium 600-Vit D3 400 Tablet] Multivitamin [Theragran] 1 tab PO DAILY 07/20/16 11/26/17 Biotin 5 mg PO BID 04/20/17 11/26/17 Zinc 220 mg PO DAILY 10/11/17 11/26/17 predniSONE [Prednisone] 5 mg PO BID 10/11/17 11/26/17 Ferrous Sulfate 325 mg PO DAILY 10/19/17 11/26/17 Vitamin B Complex 1 tab PO DAILY 11/26/17 11/26/17 Digoxin [Lanoxin] 125 mcg PO DAILY #7 tablet 11/27/17 Furosemide [Lasix] 20 mg PO DAILY #10 tablet 11/27/17 - PHYSICAL EXAM AT DISCHARGE General Appearance: positive: No acute distress, Alert. negative: Lethargic Eyes Bilateral: positive: Normal inspection, PERRL, No lid inflammation, Conjunctivae nml ENT: positive: ENT inspection nml, Pharynx nml, No signs of dehydration. negative: Purulent nasal drainage, Pharyngeal erythema, Oral lesions Neck: positive: Nml inspection, Thyroid nml, No JVD, Trachea midline. negative: Thyromegaly, Lymphadenopathy (R), Lymphadenopathy (L), Stiff neck, Swe lling/bruising, Tracheal deviation Respiratory: positive: Chest non-tender, No respiratory distress, Breath sounds nml. negative: Wheezes, Rales, Rhonchi Cardiovascular: positive: Regular rate & rhythm, No murmur, No gallop. negative: Irregularly irregular, Extrasystoles, Tachycardia, Bradycardia, JVD present, Systolic murmur, Diastolic murmur Peripheral Pulses: positive: 2+ Abdomen: positive: Non-tender, No organomegaly, Nml bowel sounds, No distention. negative: Tenderness, Guarding, Rebound Back: positive: Nml inspection. negative: CVA tenderness (R), CVA tenderness (L) Skin: positive: Color nml, No rash, Warm, Dry. negative: Cyanosis, Diaphoresis, Pallor Extremities: positive: Non-tender, Full ROM, Nml appearance. negative: Calf tenderness, Joint swelling, Iris's sign/cords Neurologic/Psychiatric: positive: Oriented x3, Motor nml, Sensation nml, Mood/affect nml. negative: Weakness, Sensory loss, Facial droop, Slurred/abnml speech, Depressed mood/affect - LABS Result Diagrams: 11/27/17 06:16 11/27/17 06:16 - FOLLOW UP Follow Up: You may follow up your PCP in one week and follow up your market manager as out- pt. You do not want any blood thinner at this point, and you would like to discuss with PCP for advance care. Your bilateral ankle swelling is resolved. Should your symptoms return or worsen, you may present ER or call 911 for help. - TIME SPENT Time Spent in Discharge (Minutes): 50
== END 2017-11-27 14:30 | disposition home or self-care (01) | DRG 293 ==
LOC: ED 00:13 → MS2 01:53
PROVIDERS: ADMIT Internal Medicine; ATTEND Nurse Practitioner Gerontology
DX: I50.813 Acute on chronic right heart failure (principal); I50.33 Acute on chronic diastolic (congestive) heart failure; E87.70 Fluid overload, unspecified; R07.9 Chest pain, unspecified; N18.9 Chronic kidney disease, unspecified; R07.89 Other chest pain; I48.91 Unspecified atrial fibrillation; I07.1 Rheumatic tricuspid insufficiency; T46.0X6A Underdosing of cardiac-stimulant glycosides and drugs of similar action, initial encounter; Z91.128 Patient's intentional underdosing of medication regimen for other reason; N18.3 Chronic kidney disease, stage 3 (moderate); J44.9 Chronic obstructive pulmonary disease, unspecified; M35.3 Polymyalgia rheumatica; K21.9 Gastro-esophageal reflux disease without esophagitis; F03.90 Unspecified dementia, unspecified severity, without behavioral disturbance, psychotic disturbance, mood disturbance, and anxiety; Z66 Do not resuscitate; Z79.52 Long term (current) use of systemic steroids; Z88.8 Allergy status to other drugs, medicaments and biological substances; Z87.891 Personal history of nicotine dependence; Z79.899 Other long term (current) drug therapy
CPT/HCPCS: 36415; 71046; 80053; 80162; 83690; 83735; 83880; 84443; 84484; 85025; 85610; 85730; 93005; 93306; 96372; 96374; 99284; 99285

== ENCOUNTER 2017-12-22 13:37 | Emergency (ER) | payer MEDICARE, OTHER ==
[2017-12-22 13:46] VITALS: BP 123/84
[2017-12-22 14:07] LABS: BASOPHILS # (AUTO) 0.1 10^3/uL (0.0-0.1); BASOPHILS % (AUTO) 1.1 %; EOSINOPHILS # (AUTO) 0.2 10^3/uL (0.0-0.7); EOSINOPHILS % (AUTO) 1.7 %; LYMPHOCYTES % (AUTO) 8.7 %; MEAN CORPUSCULAR HEMOGLOBIN 33.1 pg (27.0-31.0); MEAN CORPUSCULAR HGB CONC 33.9 g/dL (32.0-36.0); MEAN CORPUSCULAR VOLUME 97.6 fL (81.0-99.0); MEAN PLATELET VOLUME 7.1 fL (7.9-10.8); MONOCYTES # (AUTO) 0.9 10^3/uL (0.0-1.0); MONOCYTES % (AUTO) 8.1 %; NEUTROPHILS # (AUTO) 9.2 10^3/uL (1.5-6.6); NEUTROPHILS % (AUTO) 80.4 %; PLT - PLATELET COUNT 324 10^3/uL (130-450); RED BLOOD COUNT 3.63 10^6/uL (4.20-5.40); RED CELL DISTRIBUTION WIDTH 15.8 % (12.0-15.0); WHITE BLOOD COUNT 11.4 x10^3/uL (4.8-10.8)
[2017-12-22 14:20] LABS: ALBUMIN/GLOBULIN RATIO 1.4 (1.0-2.2); BILIRUBIN,TOTAL 0.6 mg/dL (0.2-1.0); CALCIUM 9.4 mg/dL (8.5-10.3); CREATININE 1.6 mg/dL (0.4-1.0); TOTAL PROTEIN 6.9 g/dL (6.7-8.2)
--- NOTE | 2017-12-22 14:24 | XRAY Report ---
Reason: chest pain Procedure Date: 12/22/2017 Accession Number: [id number] / [id number] Procedure: XR - Chest 1 View X-Ray CPT Code: 07177 FULL RESULT: EXAM: CHEST RADIOGRAPHY EXAM DATE: 12/22/2017 02:01 PM. CLINICAL HISTORY: Chest pain. COMPARISON: CHEST 2 VIEW 11/26/2017 12:50 AM. TECHNIQUE: 1 view. FINDINGS: Lungs/Pleura: Stable mild elevation left hemidiaphragm. 6 mm calcified granuloma left midlung. No other focal opacities evident. No pleural effusion. No pneumothorax. Overexpanded lungs. Mediastinum: Stable mild cardiomegaly. No tracheal shift. Other: None. IMPRESSION: 1. Mild cardiomegaly. 2. Chronic lung disease. RADIA
--- NOTE | 2017-12-22 14:34 | ED Physician Documentation ---
PD HPI CHEST PAIN - Stated complaint Stated Complaint: CHEST/JAW PX - Chief complaint Chief Complaint: Cardiac - History obtained from History obtained from: Patient - History of Present Illness Timing - onset: How many hours ago (1) Timing - onset during: Rest Timing - duration: Minutes (40) Timing - details: Abrupt onset, Now resolved Pain level max: 8 Pain level now: 0 Quality: Pressure Location: Substernal Radiation: Jaw Improved by: Rest Worsened by: Inspiration Associated symptoms: Shortness of air, Nausea, Palpitations. No: Diaphoresis, Feeling faint / dizzy Similar symptoms before: Diagnosis ([facility] 10/18/17 had irregular fast heart beats. Discharged on digoxin, furosemide) Recently seen: Not recently seen - Additional information Additional information: [facility] has a PCP appointment today at 2pm Review of Systems Ten Systems: 10 systems reviewed and negative Constitutional: denies: Fever, Chills, Myalgias Nose: denies: Rhinorrhea / runny nose Cardiac: reports: Chest pain / pressure, Palpitations. denies: Pedal edema, Calf pain Respiratory: reports: Dyspnea. denies: Cough GI: reports: Nausea. denies: Abdominal Pain, Vomiting PD PAST MEDICAL HISTORY - Past Medical History Cardiovascular: Congestive heart failure, Atrial fibrillation, Arrhythmia Respiratory: COPD, Pneumonia Neuro: None Endocrine/Autoimmune: None GI: GERD, Hiatal hernia : Other HEENT: Chronic hearing loss Psych: Depression Musculoskeletal: Osteoarthritis, Osteoporosis, Other Derm: Eczema, Psoriasis, Other - Past Surgical History Past Surgical History: Yes General: Cholecystectomy, Appendectomy, Colonoscopy, EGD Ortho: Hip replacement, Other /STEWARD/STEWARDESS NIGHT: Tubal ligation, Other Cardiovascular: Other HEENT: Cataracts Derm: Skin cancer surgery - Present Medications Home Medications: Ambulatory Orders Medication Instructions Recorded Confirmed Acetaminophen 650 mg PO BID 07/20/16 11/26/17 Calcium Carbonate/Vitamin D3 1 tab PO BID 07/20/16 11/26/17 [Calcium 600-Vit D3 400 Tablet] Multivitamin [Theragran] 1 tab PO DAILY 07/20/16 11/26/17 Biotin 5 mg PO BID 04/20/17 11/26/17 Zinc 220 mg PO DAILY 10/11/17 11/26/17 predniSONE [Prednisone] 5 mg PO BID 10/11/17 11/26/17 Ferrous Sulfate 325 mg PO DAILY 10/19/17 11/26/17 Vitamin B Complex 1 tab PO DAILY 11/26/17 11/26/17 Digoxin [Lanoxin] 125 mcg PO DAILY #7 tablet 11/27/17 Furosemide [Lasix] 20 mg PO DAILY #10 tablet 11/27/17 - Allergies Allergies/Adverse Reactions: Allergies Allergy/AdvReac Type Severity Reaction Status Date / Time diltiazem Allergy Severe Rash Verified 12/22/17 13:46 shrimp Allergy Severe Anaphylaxis Verified 12/22/17 13:46 Sulfa (Sulfonamide Allergy Severe Respiratory Verified 12/22/17 13:46 Antibiotics) Pkbgjff-Tzz-Ujy Reductase Allergy Cramps Verified 12/22/17 13:46 Inhibitor metoprolol AdvReac Respiratory Verified 12/22/17 13:46 - Social History Does the pt smoke?: No Smoking Status: Never smoker Does the pt drink ETOH?: Yes Does the pt have substance abuse?: No - Immunizations Immunizations are current?: Yes - POLST Patient has POLST: Yes POLST Status: DNR PD ED PE NORMAL - Vitals Vital signs reviewed: Yes - General General: Alert and oriented X 3, No acute distress, Well developed/nourished - HEENT HEENT: EOMI - Neck Neck: Supple, no meningeal sign - Cardiac Cardiac: RRR, No murmur - Respiratory Respiratory: No respiratory distress, Clear bilaterally - Abdomen Abdomen: Normal bowel sounds, Soft, Non tender, Non distended - Derm Derm: Warm and dry - Extremities Extremities: No deformity - Neuro Neuro: Alert and oriented X 3 - Psych Psych: Normal mood, Normal affect Results - Vitals Vitals: Vital Signs - 24 hr 12/22/17 13:44 Temperature 36.6 C Heart Rate 98 Respiratory 16 Rate Blood Pressure 123/84 H O2 Saturation 99 Oxygen O2 Source [With Activity] Room air O2 Source Room air - EKG (time done) 1346 Rate: Rate (enter#) Rhythm: Atrial fibrillation [place]: Normal QRS: Normal Ischemia: Non specific changes Other comments: Other comments (November 26, chart showed she was admitted for atrial fib w/ rvr) - Labs Labs: Laboratory Tests 12/22/17 12/22/17 12/22/17 14:00 14:00 14:00 WBC 11.4 H RBC 3.63 L Hgb 12.0 Hct 35.4 L MCV 97.6 MCH 33.1 H MCHC 33.9 RDW 15.8 H Plt Count 324 MPV 7.1 L Neut # (Auto) 9.2 H Lymph # (Auto) 1.0 L [place] # (Auto) 0.9 Eos # (Auto) 0.2 Baso # (Auto) 0.1 Absolute Nucleated RBC 0.00 Nucleated RBC % 0.0 Sodium 135 Potassium 3.6 Chloride 92 L Carbon Dioxide 32 Anion Gap 11.0 BUN 30 H Creatinine 1.6 H Estimated GFR (MDRD) 30 L Glucose 119 H Calcium 9.4 Total Bilirubin 0.6 AST 26 ALT 26 Alkaline Phosphatase 49 Troponin I < 0.04 Total Protein 6.9 Albumin 4.0 Globulin 2.9 Albumin/Globulin Ratio 1.4 Lipase 118 H PD MEDICAL DECISION MAKING - ED course Complexity details: considered differential (acs, ua, atrial fib, chf, p.e., pna), other (Per RN pt and spouse in a hurry to leave and signed out AMA. They want to keep her PCP appointment. They signed the form. RN discussed risk of benefits including [place]. When I went to the room they had already left.) Departure - Departure Disposition: Against Medical Advice Clinical Impression: Atypical chest pain Condition: Stable
== END 2017-12-22 14:30 | disposition left against medical advice (07) ==
LOC: ED 13:37
DX: R07.89 Other chest pain (principal); I50.9 Heart failure, unspecified; I48.91 Unspecified atrial fibrillation; J44.9 Chronic obstructive pulmonary disease, unspecified; Z79.01 Long term (current) use of anticoagulants; Z87.01 Personal history of pneumonia (recurrent); Z53.20 Procedure and treatment not carried out because of patient's decision for unspecified reasons
CPT/HCPCS: 36415; 71045; 80053; 83690; 84484; 85025; 93005; 99283

== ENCOUNTER 2018-02-17 10:28 | Outpatient (CLI) | payer MEDICARE, OTHER ==
[2018-02-17 12:41] LABS: THYROID STIMULATING HORMONE 2.66 uIU/mL (0.34-5.60)
[2018-02-17 12:43] LABS: FREE T4 (FREE THYROXINE) 3.18 ng/dL (0.58-1.64)
[2018-02-20 15:25] LABS: ANA SCREEN NEGATIVE (NEGATIVE)
== END 2018-02-17 10:29 | disposition home or self-care (01) ==
LOC: LAB 10:28
PROVIDERS: ATTEND Physician Assistant
DX: L65.9 Nonscarring hair loss, unspecified (principal); Z71.89 Other specified counseling
CPT/HCPCS: 36415; 84439; 84443; 86038

== ENCOUNTER 2018-04-16 03:00 | Outpatient (CLI) | payer MEDICARE, OTHER | END 2018-04-16 03:01 | disposition critical access hospital (66) | LOC: EMS 03:00 | PROVIDERS: ATTEND Surgery | DX: R06.02 Shortness of breath (principal); R05 Cough | CPT/HCPCS: A0425; A0427 ==

== ENCOUNTER 2018-04-16 03:13 | Inpatient (IN) | payer MEDICARE, OTHER ==
[2018-04-16 03:55] LABS: BASOPHILS # (AUTO) 0.1 10^3/uL (0.0-0.1); BASOPHILS % (AUTO) 1.1 %; EOSINOPHILS # (AUTO) 0.2 10^3/uL (0.0-0.7); HGB - HEMOGLOBIN 10.5 g/dL (12.0-16.0); LYMPHOCYTES # (AUTO) 0.9 10^3/uL (1.5-3.5); LYMPHOCYTES % (AUTO) 10.5 %; MEAN CORPUSCULAR HEMOGLOBIN 32.6 pg (27.0-31.0); MEAN CORPUSCULAR HGB CONC 33.5 g/dL (32.0-36.0); MEAN CORPUSCULAR VOLUME 97.2 fL (81.0-99.0); MEAN PLATELET VOLUME 8.9 fL (7.9-10.8); MONOCYTES # (AUTO) 0.6 10^3/uL (0.0-1.0); MONOCYTES % (AUTO) 7.1 %; NEUTROPHILS # (AUTO) 6.9 10^3/uL (1.5-6.6); NEUTROPHILS % (AUTO) 79.3 %; PLT - PLATELET COUNT 238 10^3/uL (130-450); RED BLOOD COUNT 3.22 10^6/uL (4.20-5.40); RED CELL DISTRIBUTION WIDTH 14.2 % (12.0-15.0); WHITE BLOOD COUNT 8.7 x10^3/uL (4.8-10.8)
--- NOTE | 2018-04-16 04:01 | XRAY Report ---
Reason: sob Procedure Date: 04/16/2018 Accession Number: [id number] / [id number] Procedure: XR - Chest 2 View X-Ray CPT Code: 28666 FULL RESULT: EXAM: CHEST RADIOGRAPHY EXAM DATE: 04/16/2018 03:34 AM. CLINICAL HISTORY: Sob. COMPARISON: CHEST 1 VIEW 12/22/2017 1:49 PM. TECHNIQUE: 2 views. FINDINGS: Lungs/Pleura: Mild pulmonary vascular congestion. Small effusions. No pneumothorax. Mediastinum: Cardiomegaly. Implanted pvc monitor. Other: None. IMPRESSION: Mild congestive changes. RADIA
[2018-04-16 04:03] LABS: INR 1.2 (0.8-1.2); PT - PROTHROMBIN TIME 13.1 secs (9.9-12.6)
[2018-04-16 04:08] LABS: ALBUMIN 3.4 g/dL (3.2-5.5); ALBUMIN/GLOBULIN RATIO 1.2 (1.0-2.2); ALKALINE PHOSPHATASE 80 IU/L (42-121); ALT ALANINE AMINOTRANSFERASE 42 IU/L (10-60); AST ASPARTATE AMINOTRANSFERASE 55 IU/L (10-42); BILIRUBIN,TOTAL < 0.2 mg/dL (0.2-1.0); BUN - BLOOD UREA NITROGEN 26 mg/dL (6-20); CALCIUM 9.4 mg/dL (8.5-10.3); CARBON DIOXIDE - CO2 22 mmol/L (21-32); CHLORIDE 106 mmol/L (101-111); CREATININE 1.3 mg/dL (0.4-1.0); GFR - MDRD 39 (>89); GLUCOSE 152 mg/dL (70-100); LIPASE 70 U/L (22-51); SODIUM 135 mmol/L (135-145); TOTAL PROTEIN 6.3 g/dL (6.7-8.2)
[2018-04-16] MEDS ORDERED: FUROSEMIDE 40 MG/4 ML VIAL IVP STA (04:23)
--- NOTE | 2018-04-16 05:01 | ED Physician Documentation ---
PD HPI DYSPNEA - Stated complaint Stated Complaint: SOA - Chief complaint Chief Complaint: Resp - Additional information Additional information: 88-year-old female presents the emergency department with complaints of shortness of breath. The patient reports increasing dyspnea on exertion over the past several days which has progressively worsened. This morning the patient felt too short of breath to ambulate around her house and called EMS. Normally the patient does not use any assist device but was using a walker due to her shortness of breath. The patient denies chest pain. The patient denies fevers or chills. No other associated symptoms. Symptoms are described as moderate and worsening. No relieving factors Review of Systems Constitutional: reports: Fatigue. denies: Fever Eyes: denies: Discharge Ears: denies: Ear pain Nose: denies: Congestion Throat: denies: Sore throat Cardiac: reports: Pedal edema. denies: Chest pain / pressure Respiratory: reports: Dyspnea GI: denies: Abdominal Pain : denies: Dysuria Skin: denies: Rash Musculoskeletal: denies: Neck pain Neurologic: reports: Generalized weakness PD PAST MEDICAL HISTORY - Past Medical History Past Medical History: Yes Cardiovascular: Congestive heart failure, Atrial fibrillation, Arrhythmia Respiratory: COPD, Pneumonia Neuro: None Endocrine/Autoimmune: None GI: GERD, Hiatal hernia : Other HEENT: Chronic hearing loss Psych: Depression Musculoskeletal: Osteoarthritis, Osteoporosis, Other Derm: Eczema, Psoriasis, Other Other Past Medical History: reynolds radha syndrome - Past Surgical History Past Surgical History: Yes General: Cholecystectomy, Appendectomy, Colonoscopy, EGD Ortho: Hip replacement, Other /CHECK OUT CASHIER: Tubal ligation, Other Cardiovascular: Pacemaker, Other HEENT: Cataracts Derm: Skin cancer surgery - Present Medications Home Medications: Ambulatory Orders Medication Instructions Recorded Confirmed Acetaminophen 650 mg PO BID 07/20/16 01/11/18 Calcium Carbonate/Vitamin D3 1 tab PO BID 07/20/16 01/11/18 [Calcium 600-Vit D3 400 Tablet] Multivitamin [Theragran] 1 tab PO DAILY 07/20/16 01/11/18 Biotin 5 mg PO BID 04/20/17 01/11/18 Zinc 220 mg PO DAILY 10/11/17 01/11/18 predniSONE [Prednisone] 5 mg PO BID 10/11/17 01/11/18 Ferrous Sulfate 325 mg PO DAILY 10/19/17 01/11/18 Vitamin B Complex 1 tab PO DAILY 11/26/17 01/11/18 Potassium Chloride 0 meq PO DAILY 04/16/18 04/16/18 Tramadol HCl [Ultram] 0 mg PO Q6H 04/16/18 04/16/18 - Allergies Allergies/Adverse Reactions: Allergies Allergy/AdvReac Type Severity Reaction Status Date / Time diltiazem Allergy Severe Rash Verified 04/16/18 03:19 shrimp Allergy Severe Anaphylaxis Verified 04/16/18 03:19 Sulfa (Sulfonamide Allergy Severe Respiratory Verified 04/16/18 03:19 Antibiotics) Hjcocgw-Tde-Qbi Reductase Allergy Cramps Verified 04/16/18 03:19 Inhibitor metoprolol AdvReac Respiratory Verified 04/16/18 03:19 - Social History Does the pt smoke?: No Smoking Status: Never smoker Does the pt drink ETOH?: Yes Does the pt have substance abuse?: No - Immunizations Immunizations are current?: Yes - POLST Patient has POLST: Yes POLST Status: DNR PD ED PE NORMAL - General General: Alert and oriented X 3, Other (Frail 88-year-old female who is quite thin and appears short of breath but is in no significant distress) - HEENT HEENT: Atraumatic, PERRL, EOMI, Ears normal - Cardiac Cardiac: RRR (Regular paced rhythm) - Respiratory Respiratory: Other (Bilateral rails) - Abdomen Abdomen: Soft, Non tender - Derm Derm: Normal color - Extremities Extremities: No deformity - Neuro Neuro: Alert and oriented X 3, Normal speech - Psych Psych: Normal mood Results - Vitals Vitals: Vital Signs - 24 hr 04/16/18 04/16/18 04/16/18 03:14 03:22 03:43 Temperature 36.8 C Heart Rate 78 80 80 Respiratory 32 H 36 H Rate Blood Pressure 130/71 117/78 O2 Saturation 94 94 04/16/18 04/16/18 04/16/18 04:04 04:30 05:00 Temperature Heart Rate 80 80 80 Respiratory 32 H 24 24 Rate Blood Pressure 118/72 108/72 109/72 O2 Saturation 100 99 94 Oxygen O2 Source [] Room air O2 Source Nasal cannula Oxygen Flow Rate 2 - EKG (time done) 03:20 Rate: Rate (enter#) Other comments: Other comments (Ventricularly paced at 80 beats a minute, underlying atrial fib) - Labs Labs: Laboratory Tests 04/16/18 04/16/18 04/16/18 03:45 03:45 03:45 WBC 8.7 RBC 3.22 L Hgb 10.5 L Hct 31.3 L MCV 97.2 MCH 32.6 H MCHC 33.5 RDW 14.2 Plt Count 238 MPV 8.9 Neut # (Auto) 6.9 H Lymph # (Auto) 0.[address] # (Auto) 0.6 Eos # (Auto) 0.2 Baso # (Auto) 0.1 Absolute Nucleated RBC 0.00 Nucleated RBC % 0.0 PT 13.1 H INR 1.2 Sodium 135 Potassium 4.7 Chloride 106 Carbon Dioxide 22 Anion Gap 7.0 BUN 26 H Creatinine 1.3 H Estimated GFR (MDRD) 39 L Glucose 152 H Calcium 9.4 Total Bilirubin < 0.2 L AST 55 H ALT 42 Alkaline Phosphatase 80 Troponin I B-Natriuretic Peptide Total Protein 6.3 L Albumin 3.4 Globulin 2.9 Albumin/Globulin Ratio 1.2 Lipase 70 H 04/16/18 04/16/18 03:45 03:45 WBC RBC Hgb Hct MCV MCH MCHC RDW Plt Count MPV Neut # (Auto) Lymph # (Auto) [place] # (Auto) Eos # (Auto) Baso # (Auto) Absolute Nucleated RBC Nucleated RBC % PT INR Sodium Potassium Chloride Carbon Dioxide Anion Gap BUN Creatinine Estimated GFR (MDRD) Glucose Calcium Total Bilirubin AST ALT Alkaline Phosphatase Troponin I 0.10 B-Natriuretic Peptide 480 H Total Protein Albumin Globulin Albumin/Globulin Ratio Lipase - Rads (name of study) CXR Radiology: Final report received, See rad report (IMPRESSION: Mild congestive changes. ) PD MEDICAL DECISION MAKING - ED course ED course: The patient's shortness of breath seems to be secondary to acute congestive heart failure, which has significantly limited the patient's ability to function at home and now she is reporting that she can only go a few steps before she is too short of breath which has limited her ability to function at home. Normally the patient reports being able to walk without any assist device. The patient also has chronic renal insufficiency with a low GFR And since she is requiring diuresis she will benefit from being observed in the hospital to make sure she improves and is capable of going home. The findings and plan were discussed with the patient who understands and agrees to the plan. The case was discussed with the hospitalist Dr. Rosas who accepts the patient onto her service Departure - Departure Disposition: ED Place in Observation Clinical Impression: Renal insufficiency, Dyspnea on exertion CHF exacerbation Qualifiers: Heart failure type: unspecified Qualified Code(s): I50.9 - Heart failure, unspecified
[2018-04-16] MEDS ORDERED: ACETAMINOPHEN 325 MG TABLET PO PRN (06:06)
[2018-04-16] MEDS ORDERED: ONDANSETRON ODT 4 MG TABLET TL PRN (06:06)
[2018-04-16] MEDS ORDERED: oxyCODONE 5 MG TABLET PO PRN (06:06)
[2018-04-16] MEDS ORDERED: ONDANSETRON 4 MG/2 ML VIAL IVP PRN (06:06)
[2018-04-16] MEDS ORDERED: SODIUM CHLORIDE FLUSH 0.9% 10 ML SYRINGE IVP PRN (06:06)
--- NOTE | 2018-04-16 06:24 | HISTORY & PHYSICAL EXAMINATION ---
Chief Complaint - Chief Complaint Chief Complaint: Dyspnea at rest History of Present Illness - Admitted From Admitted From:: Home/emergency room - History Obtained From Records Reviewed: Tonja History obtained from: Tonja/Dr. Sams/Patient/Husbnd Exam Limitations: deafness of patient and her - History of Present Illness HPI Comment/Other: She is an elderly woman who still lives in her own home with her . They are both deaf, slow to move but still independent. She is a cardiac diagnosis of atrial fibrillation with occasional RVR. Previous echocardiograms done with 3 admissions since 2017 shows her ejection fraction to be well maintained at 65- 70%. Mitral valve is heavily calcified with minimal mitral stenosis and moderate tricuspid regurgitation. She has grade 1 diastolic dysfunction. She is followed by Dr. Conroy, [facility] cardiology. I try to look up her records through the [facility] network and I am unable to find the encounter she describes. She said that she was seen by him on April 10 and had procedure for her atrial fibrillation. I am unclear as to why. She is not clear as to why. She said this was to control her heart rate. 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 She had the monitor on April 10. By April 12 she was having dyspnea on exertion. By April 14 she was having mild pedal edema, no orthopnea, no chest pain but dyspnea on exertion worsened her to use a walker. She was seen by her primary care provider on April 14 she was told that this is most likely a flareup of her polymyalgia rheumatica. On April 15 she was so short of breath she could not stand up to walk even a few feet. She comes in in the riveter helper hours of April 16 with the dyspnea. She was seen in the emergency room by Dr. Flaquita young d is found to have congestive heart failure with a mildly elevated BNP. She is not hypoxic. She is now placed in observation for treatment of mild congestive heart failure. History - Past Medical History Cardiovascular: reports: Congestive heart failure (Diastolic, grade 1. She has had 3 echocardiograms and has mitral stenosis that is mild, severe mitral calcification. Moderate tricuspid regurgitation. Right ventricular pressure is normal.), Atrial fibrillation (Chronic, occasional RVR since 2017. Not a candidate for anticoagulation) Respiratory: reports: COPD, Pneumonia (Admit 2017) Neuro: reports: None Endocrine/Autoimmune: reports: None GI: reports: GERD, Hiatal hernia HEENT: reports: Chronic hearing loss Psych: reports: Depression Musculoskeletal: reports: Osteoarthritis, Osteoporosis, Other Derm: reports: Eczema, Psoriasis, Other MRSA Hx?: No Other Past Medical History: pack jose j syndrome, Monoclonal gammopathy of unknown significance - Past Surgical History General: reports: Cholecystectomy, Appendectomy, Colonoscopy, EGD Ortho: reports: Hip replacement, Other /CHECK SERVICES CLERK: reports: Tubal ligation, Other Cardiovascular: reports: Pacemaker, Other HEENT: reports: Cataracts Derm: reports: Skin cancer surgery - Family & Social History Family History: Mother: , Alzheimer's Disease, Sister: Alive and Well, Other family: Mental Illness Family History Comment/Other: Patient had 4 children 1 of whom committed suicide the other 3 have no problems with high blood pressure, diabetes, cancer, heart attack or stroke. Social History Notes: The patient is to her and they live together in their home. Her suffers from dementia. 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 She had 4 children 1 of whom has the other 3 are dispersed throughout the country. She has 1 child in [place], one in [place] and one in [facility]. She and her lived in [place] for 44 years and moved would be [place] years ago [place] [facility]. She and her live in a home on [address]. The patient states that she is able to perform most of her activities of daily living prior to the last couple of weeks. They have a dog in the home. The patient has been to her for 68 years. She is a former smoker and smoked 1 pack a day for more than 65 years. She quit smoking about 5 years ago. She has no history of alcohol abuse and denies any illicit drug use. - Substance History Use: Uses substance without health or social issues: NONE - POLST Patient has POLST: Yes POLST Status: DNR Meds/Allgy - Home Medications Home Medications: Ambulatory Orders Medication Instructions Recorded Confirmed RX: Acetaminophen 650 mg PO BID PRN 07/20/16 04/16/18 RX: Calcium Carbonate/Vitamin D3 1 tab PO BID 07/20/16 04/16/18 [Calcium 600-Vit D3 400 Tablet] RX: Multivitamin [Theragran] 1 tab PO DAILY 07/20/16 04/16/18 RX: Biotin 5 mg PO BID 04/20/17 04/16/18 RX: Zinc 220 mg PO DAILY 10/11/17 04/16/18 RX: predniSONE [Prednisone] 5 mg PO DAILY 10/11/17 04/16/18 RX: Ferrous Sulfate 325 mg PO DAILY 10/19/17 04/16/18 RX: Potassium Chloride 0 meq PO DAILY 04/16/18 04/16/18 - Allergies Allergies/Adverse Reactions: Allergies Allergy/AdvReac Type Severity Reaction Status Date / Time diltiazem Allergy Severe Rash Verified 04/16/18 03:19 shrimp Allergy Severe Anaphylaxis Verified 04/16/18 03:19 Sulfa (Sulfonamide Allergy Severe Respiratory Verified 04/16/18 03:19 Antibiotics) Gjaylex-Hgr-Qzs Reductase Allergy Cramps Verified 04/16/18 03:19 Inhibitor metoprolol AdvReac Respiratory Verified 04/16/18 03:19 Review of Systems - Constitutional Constitutional: reports: Fatigue, Weakness. denies: Fever, Chills, Malaise, Poor appetite, Diaphoresis, Night sweats, Weight gain, Weight loss - Eyes Eyes: denies: Pain, Irritation, Amaurosis, Blurred vision - Ears, Nose & Throat Ears, Nose & Throat: reports: Hearing loss. denies: Ear pain, Hearing aids, Tinnitus, Vertigo, Nasal pain - Cardiovascular Cariovascular: reports: Irregular heart rate, Palpitations, Edema, Lightheadedness, Syncope. denies: Chest pain, Exertional dyspnea, Decr. exercise tolerance - Respiratory Respiratory: denies: Cough, Sputum production, Wheezing, Snoring - Gastrointestinal Gastrointestinal: denies: Abdominal pain, Abdominal distention, Constipation, Diarrhea, Change in bowel habits, Rectal bleeding - Genitourinary Genitourinary: reports: Frequency, Incontinence. denies: Dysuria, Urgency, Hematuria, Flank pain, Nocturia, Urethral discharge - Musculoskeletal Musculoskeletal: reports: Stiffness. denies: Muscle pain, Back pain, Muscle aches, Limited range of motion, Muscle weakness, Gout, Joint pain - Integumentary Integumentary: denies: Rash, Pruritis, Lesions, Dryness, Lumps, Acne, Pigment changes - Neurological Neurological: reports: Memory problems. denies: General weakness, Focal weakness, Headache, Dizziness, Numbness, Pre-existing deficit - Psychiatric Psychiatric: denies: Depression, Anxiety - Endocrine Endocrine: denies: Polyuria, Polydypsia, Polyphagia - Hematologic/Lymphatic Hematologic/Lymphatic: denies: Anemia, Bruising, Petechiae, Blood clots Prior Level of Functionality: independent with self care. will use a walker if tired or sob. she and hire help for housekeeping, yard work. they stillpay own bills, he drive.s Exam - Vital Signs Reviewed Vital Signs: Yes Vital Signs: Vital Signs x48h Temp Pulse Resp BP Pulse Ox 04/16/18 06:00 80 24 118/74 94 04/16/18 05:30 80 28 H 116/85 H 96 04/16/18 05:00 80 24 109/72 94 04/16/18 04:30 80 24 108/72 99 04/16/18 04:04 80 32 H 118/72 100 04/16/18 03:43 80 36 H 117/78 94 04/16/18 03:22 80 04/16/18 03:14 36.8 C 78 32 H 130/71 94 - Physical Exam General Appearance: positive: No acute distress, Alert, Mild distress, Other (thin elderly white female with at bedside, both are deaf) Eyes Bilateral: positive: PERRL, EOMI ENT: positive: Pharynx nml Neck: positive: No JVD. negative: Stiff neck, Carotid bruit Respiratory: positive: Chest non-tender, Rales, Other (mild respiratory distress when she speaks for too long. [place] [facility] negative: Wheezes, Rhonchi Cardiovascular: positive: Irregularly irregular, Systolic murmur. negative: Gallop/S4, Friction rub Peripheral Pulses: positive: 1+ Abdomen: positive: Non-tender, No organomegaly, Nml bowel sounds, No distention Skin: positive: Warm, Dry, Pallor Extremities: positive: Non-tender, Full ROM, Pedal edema (1+) Neurologic/Psychiatric: positive: Oriented x3, CN's nml (2-12) (except deaf), Motor nml Conclusion/Plan - Problem List (1) Acute on chronic diastolic ACC/AHA stage C congestive heart failure Conclusion/Plan: She presents as dyspnea on exertion is gradually worsened over the last week, then onto pedal edema, but no chest pain, orthopnea. Dyspnea is now at rest. She has had several echocardiograms. Most recently was November 2017 where she did not have systolic dysfunction. She has had grade 1 diastolic dysfunction, valvular heart disease, and atrial fibrillation. Plan: Observation stay Limited echocardiogram to reassess left ventricle only KATHI inhibitor is not indicated Diuresis will be goal with Lasix 20 IV push in the face of chronic kidney disease (2) Atrial fibrillation with rapid ventricular response Conclusion/Plan: She is not a candidate for anticoagulation because of age. She is not on any rate lowering medication. We will give low-dose Lopressor prn. Once out of ER her rate has been in 80's. (3) Tricuspid regurgitation Conclusion/Plan: With her age and comorbidities, not a candidate for cardiology intervention. Again echocardiogram will focus on left ventricle. Treatment will be diuresis. Qualifiers: Cardiac valve disease etiology: etiology unspecified Qualified Code(s): I07.1 - Rheumatic tricuspid insufficiency (4) Polymyalgia rheumatica Conclusion/Plan: Continue oral steroids. (5) Chronic kidney disease, stage 3 Conclusion/Plan: GFR has ranged from 30-33 in the past. At 39 she is stable. Plan: Lasix 20 mg IV push twice daily initially to avoid worsening her chronic kidney disease Monitor BMP in a.m. (6) Iron deficiency anemia Conclusion/Plan: with Monoclonal gammopathy of unknown significance as well as anemia of chronic disease from CKD. She is followed by Dr. Krystal Valadez on a regular basis. Tr eatment has been expectant management with oral iron supplements. Last hemoglobin was 11 with her oncology visit. Today she is 10.5 Plan: Iron infusions that she is inpatient. Continue oral iron in the outpatient setting. Qualifiers: Iron deficiency anemia type: unspecified iron deficiency Qualified Code(s): D50.9 - Iron deficiency anemia, unspecified - Lab Results Lab results reviewed: Yes Fish Bones: 04/16/18 03:45 04/16/18 03:45 Other Lab Results: Mild congestive heart failure changes with mild pulmonary vascular congestion, small pleural effusions, no pneumothorax or pneumonia. - Diagnostic Imaging Results Diagnostic Imaging Results: positive: Final report reviewed - EKG Results EKG Interpreted Independently: No EKG Comparison: Unchanged from prior EKG Core Measures - Anticipated LOS I expect patient to be DC'd or transferred within 96 hours.: Yes - DVT/VTE - Prophylaxis VTE/DVT Device ordered at admit?: Yes
[2018-04-16] MEDS: POLYETHYLENE GLYCOL 3350 17 GM PACKET PO SCH (07:48)
[2018-04-16] MEDS: SODIUM CHLORIDE FLUSH 0.9% 10 ML SYRINGE IVP SCH ×2 (08:07→17:39)
[2018-04-16] MEDS: POTASSIUM CHLORIDE 20 MEQ TABLET PO SCH (08:07)
[2018-04-16 08:26] LABS: % IRON SATURATION 11 % (20-50); IRON 35 ug/dL (28-170); TOTAL IRON BINDING CAPACITY 305 ug/dL (250-450); TRANSFERRIN 218 mg/dL (192-382)
[2018-04-16] MEDS ORDERED: FUROSEMIDE 40 MG TABLET PO SCH (09:00)
[2018-04-16] MEDS ORDERED: DIPHENOX/ATROPINE 2.5/0.025 MG TABLET PO PRN (10:55)
[2018-04-16] MEDS: LACTOBACILLUS RHAMNOSUS GG CAPSULE PO SCH (11:45)
[2018-04-16] MEDS: predniSONE 20 MG TABLET PO SCH ×2 (11:45→20:58)
[2018-04-16 12:46] LABS: % IRON SATURATION 11 % (20-50); IRON 37 ug/dL (28-170); TOTAL IRON BINDING CAPACITY 326 ug/dL (250-450); TRANSFERRIN 233 mg/dL (192-382)
--- NOTE | 2018-04-16 16:11 | MISCELLANEOUS PROVIDER NOTE ---
Miscellaneous Provider Note - - Note: Subjective: Patient complains of diarrhea with dyspnea on exertion along with weakness and mild swelling of legs. Denies fevers chills abdominal pain nausea vomiting headaches micropapular rashes joint swelling. Objective: Vital signs are hemodynamically stable afebrile nontachypneic non- tachycardic blood pressure 118/74 RR 2494% O2 saturation on room air General: Patient alert and oriented x3 in no acute respiratory distress speaking full sentences HEENT: No buccal lesions, NCAT, pupils are equal round react to light and accommodation, extraocular muscles are bilateral intact express neck no JVD no bruits no lymphadenopathy. CV/lungs: Irregular rate with A diastolic murmur along with displaced PMI no palpable pacemaker device or leads noted. Decreased breath sounds with no wheezing no rales no increased work of breath no retraction x-ray of abdomen: Soft nontender nondistended positive bowel sounds all quadrants no HSM x-ray of extremities skin: Mild bipedal edema 2+ pulses dorsalis pedis no clubbing or cyanosis x-ray of neuro: Grossly intact x-ray of labs: Reviewed Imaging studies: Reviewed Assessment/plan: (1) Acute on chronic diastolic ACC/AHA stage C congestive heart failure Conclusion/Plan: Continue with current medical management, will place back on Home regimen of Lasix at 40 mg p.o. daily. She has had several echocardiograms. Most recently was November 2017 where she did not have systolic dysfunction. She has had grade 1 diastolic dysfunction, valvular heart disease, and atrial fibrillation. Echocardiogram shows an ejection fraction of 65-70% with pacemaker leads seen in the right atrium and right ventricle. Patient has had good diureses and will continue to monitor I's and O's and daily weights. Consider placing on lisinopril (2) Atrial fibrillation with rapid ventricular response Conclusion/Plan: She is not a candidate for anticoagulation because of age. She is not on any rate lowering medication. We will give low-dose Lopressor. (3) Tricuspid regurgitation Conclusion/Plan: Patient has diastolic murmur which may be reflecting tricuspid regurgitation this was not overtly seen on echocardiogram With her age and comorbidities, not a candidate for cardiology intervention. Treatment will be diuresis. Qualifiers: Cardiac valve disease etiology: etiology unspecified Qualified Code(s): I07.1 - Rheumatic tricuspid insufficiency (4) Polymyalgia rheumatica Conclusion/Plan: Continue oral steroids. We will start at 40 mg p.o.bid, And then taper (5) Chronic kidney disease, stage 3 Conclusion/Plan: GFR has ranged from 30-33 in the past. Currently with a creatinine of 1.3 with baseline of 1.0-1.5. Currently on Lasix 40 mg p.o. daily.We will continue to monitor avoid electrolyte disturbance and nephrotoxic agents. (6) Iron deficiency anemia Conclusion/Plan: with Monoclonal gammopathy of unknown significance. She is followed by Dr. Krystal Valadez on a regular basis. Treatment has been expectant management with oral iron supplements. We will resume ferrous sulfate. Last hemoglobin was 11 with her oncology visit. Today she is 10.5 With a macrocytosis. CODE STATUS: DNR
[2018-04-16] MEDS: FERROUS SULFATE 325 MG TABLET PO SCH (17:39)
[2018-04-16] MEDS: CHOLECALCIFEROL 400 UNIT TABLET PO SCH (20:58)
[2018-04-16] MEDS: CALCIUM CARB (OYSTER SHELL) 500 MG TABLET PO SCH (20:58)
[2018-04-17] MEDS: SODIUM CHLORIDE FLUSH 0.9% 10 ML SYRINGE IVP SCH ×2 (02:12→09:11)
[2018-04-17 06:12] LABS: BASOPHILS % (AUTO) 0.1 %; HGB - HEMOGLOBIN 10.7 g/dL (12.0-16.0); LYMPHOCYTES # (AUTO) 0.6 10^3/uL (1.5-3.5); LYMPHOCYTES % (AUTO) 7.4 %; MEAN CORPUSCULAR HGB CONC 33.1 g/dL (32.0-36.0); MEAN CORPUSCULAR VOLUME 96.8 fL (81.0-99.0); MEAN PLATELET VOLUME 9.1 fL (7.9-10.8); MONOCYTES # (AUTO) 0.3 10^3/uL (0.0-1.0); MONOCYTES % (AUTO) 4.1 %; NEUTROPHILS # (AUTO) 6.7 10^3/uL (1.5-6.6); NEUTROPHILS % (AUTO) 88.4 %; PLT - PLATELET COUNT 265 10^3/uL (130-450); RED BLOOD COUNT 3.34 10^6/uL (4.20-5.40); RED CELL DISTRIBUTION WIDTH 14.2 % (12.0-15.0); WHITE BLOOD COUNT 7.5 x10^3/uL (4.8-10.8)
[2018-04-17 06:22] LABS: ALBUMIN 3.2 g/dL (3.2-5.5); CALCIUM 9.4 mg/dL (8.5-10.3); CREATININE 1.5 mg/dL (0.4-1.0); MAGNESIUM 2.1 mg/dL (1.7-2.8); PHOSPHORUS 5.2 mg/dL (2.5-4.6)
[2018-04-17 06:42] VITALS: BP 94/61
[2018-04-17] MEDS ORDERED: SODIUM CHLORIDE 0.9% 500 ML IV SCH (07:00)
--- NOTE | 2018-04-17 07:01 | Discharge Plan ---
Discharge Plan Disposition: 01 Home, Self Care Condition: Good Prescriptions: Diphenoxylate/Atropine [Lomotil] 1 tab PO QID PRN #40 tablet PRN Reason: Diarrhea Furosemide [Lasix] 20 mg PO BID #60 tablet Isosorbide Mononitrate [Ismo] 10 mg PO DAILY #30 tablet Potassium Chloride [K-Dur] 20 meq PO DAILYWM #60 tablet predniSONE [Prednisone] 20 mg PO DAILY #7 tablet Diet: Low Sodium Shower Restrictions: No Driving Restrictions: Yes Assistance Devices: Walker Weight Bearing: Full Weight Instruction Topics: Treatment for Polymyalgia Rheumatica, Heart Failure, Heart Failure Diet Changes, Heart Failure Meds Control Additional Instructions or Follow Up instructions: Patient has been instructed on post discharge instructions with her heart failure as well as polymyalgia rheumatica and the necessity to obtain outpatient physical therapy if needed. Patient instructed on medication compliance to keep all appointments and instructed to take all prescribed medications. Pt comfortable with plan and will return if she worsens. No Smoking: If you smoke, Please STOP! Call for help. Follow-up with: VENUS BUCKLEY [Primary Care Provider] - 1 Week
--- NOTE | 2018-04-17 07:05 | DISCHARGE SUMMARY ---
Discharge Summary Admit Date: 04/16/18 Discharge Date: 04/17/18 Discharging Provider: Dr. Schuler Primary Care Provider: Reji Baeza Code Status: Do Not Attempt Resuscitation Condition at Discharge: Good Discharge Disposition: 01 Home, Self Care - DIAGNOSES Admission Diagnoses: 1. Acute on chronic diastolic ACC/AHA stage C congestive heart failure 2. Atrial fibrillation with rapid ventricular response, With a history of a implantable monitor tech query on pacemaker 3. Tricuspid regurgitation 4. Acute exacerbation of polymyalgia rheumatica 5. Acute renal insufficiency superimposed on chronic kidney disease stage III 6. Iron deficiency anemia Discharge Diagnoses with Status of Each Condition: (1) Acute on chronic diastolic ACC/AHA stage C congestive heart failure; Improved stable (2) Atrial fibrillation with rapid ventricular response (resolved s/p IV lopressor); stable, Not anticoagulated (3) Tricuspid regurgitation, Chronic stable (4) Polymyalgia rheumatica, Chronic stable and improved (5) Chronic kidney disease, stage 3, At baseline stable (6) Iron deficiency anemia, Chronic stable - HPI History of Present Illness: She is an elderly woman who still lives in her own home with her . They are both deaf, slow to move but still independent. She is a cardiac diagnosis of atrial fibrillation with occasional RVR. Previous echocardiograms done with 3 admissions since 2017 shows her ejection fraction to be well maintained at 65- 70%. Mitral valve is heavily calcified with minimal mitral stenosis and moderate tricuspid regurgitation. She has grade 1 diastolic dysfunction. She is followed by Dr. Conroy, [facility] cardiology. I try to look up her records through the [facility] network and I am unable to find the encounter she describes. She said that she was seen by him on April 10 and had procedure for her atrial fibrillation. I am unclear as to why. She is not clear as to why. She said this was to control her heart rate. 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 She had the monitor on April 10. By April 12 she was having dyspnea on exertion. By April 14 she was having mild pedal edema, no orthopnea, no chest pain but dyspnea on exertion worsened her to use a walker. She was seen by her primary care provider on April 14 she was told that this is most likely a flareup of her polymyalgia rheumatica. On April 15 she was so short of breath she could not stand up to walk even a few feet. She comes in in the quality assurance intern hours of April 16 with the dyspnea. She was seen in the emergency room by Dr. Sams and is found to have congestive heart failure with a mildly elevated BNP. She is not hypoxic. She is now placed in observation for treatment of mild congestive heart failure. - CONSULTS | PROCEDURES Procedures: Echocardiogram on 04/16 shows an ejection fraction of 65-70% with no changes and similar from prior echocardiograms. Pacemaker leads in the right atrium and right ventricle with no valvular heart disease noted. - HOSPITAL COURSE Hospital Course: Ms. Stefani Payne was admitted for dyspneic at rest while using a walker with a mildly elevated BNP along with mild changes of CHF that has been chronic diastolic in nature with RVR A. fib. Patient was admitted for gentle diuresis due to chronic kidney disease with a GFR of 39 creatinine ranging between 1.0- 1.5 was placed on Lasix and was diuresed while being placed on a prednisone "burst" for her polymyalgia rheumatica. Patient has a history of iron deficiency anemia monoclonal gammopathy of unknown significance GERD and COPD. Patient had no physical therapy needs. Ejection fraction on this admission showed 65-70% with no changes and similar to appearance with pacemaker leads to the right atrium and the right ventricle with no valvular heart disease. She has had several echocardiograms. In November 2017 where she did not have systolic dysfunction. Lasix was decreased from 40 mg IV to 20 mg converted to oral and was given IV fluids with normal saline. Surprisingly iron saturation was only 11 and resumed on oral ferrous sulfate supplementation with folic acid and vitamin B12 being within normal limits. Upon discharge patient was hemodynamically stable there was some mild hypotensive events asymptomatic was nontachypneic and non-hypoxemic at 96% O2 saturation on room air with a creatinine of 1.5 patient would benefit from afterload reduction due to LVH and hyperdynamic function of heart seen on echo. Isosorbide 10 mg p.o. daily will be dispensed. Patient will continue with a prednisone burst of 40 mg p.o. daily to continue for a period of 7 days. Continue with current medical management, will place back on Home regimen of Lasix at but sapce to 20 mg p.o. BID, along with KCL. 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 Patient also encouraged on keeping all appointments with cardiology service to recheck implantable monitor tech however unclear if this is a pacemaker as seen on ECHO. - ALLERGIES Allergies/Adverse Reactions: Allergies Allergy/AdvReac Type Severity Reaction Status Date / Time diltiazem Allergy Severe Rash Verified 04/16/18 03:19 shrimp Allergy Severe Anaphylaxis Verified 04/16/18 03:19 Sulfa (Sulfonamide Allergy Severe Respiratory Verified 04/16/18 03:19 Antibiotics) Pajirfs-Vtb-Aiw Reductase Allergy Cramps Verified 04/16/18 03:19 Inhibitor metoprolol AdvReac Respiratory Verified 04/16/18 03:19 - MEDICATIONS Home Medications: Ambulatory Orders Medication Instructions Recorded Confirmed Acetaminophen 650 mg PO BID PRN 07/20/16 04/16/18 Calcium Carbonate/Vitamin D3 1 tab PO BID 07/20/16 04/16/18 [Calcium 600-Vit D3 400 Tablet] Multivitamin [Theragran] 1 tab PO DAILY 07/20/16 04/16/18 Biotin 5 mg PO BID 04/20/17 04/16/18 Zinc 220 mg PO DAILY 10/11/17 04/16/18 Ferrous Sulfate 325 mg PO DAILY 10/19/17 04/16/18 Diphenoxylate/Atropine [Lomotil] 1 tab PO QID PRN #40 tablet 04/17/18 Furosemide [Lasix] 20 mg PO BID #60 tablet 04/17/18 Isosorbide Mononitrate [Ismo] 10 mg PO DAILY #30 tablet 04/17/18 Potassium Chloride [K-Dur] 20 meq PO DAILYWM #60 tablet 04/17/18 predniSONE [Prednisone] 20 mg PO DAILY #7 tablet 04/17/18 - PHYSICAL EXAM AT DISCHARGE General Appearance: positive: No acute distress, Alert, Other (Frail and thin cachectic) Eyes Bilateral: positive: Normal inspection, PERRL, EOMI ENT: positive: ENT inspection nml, Pharynx nml, No signs of dehydration Neck: positive: Nml inspection, Thyroid nml, No JVD, Trachea midline Respiratory: positive: Chest non-tender, No respiratory distress, Breath sounds nml Cardiovascular: positive: Regular rate & rhythm, No gallop, Diastolic murmur, Other (The presence of a pacemaker device is not palpable). negative: JVD present, Gallop/S4, Friction rub Peripheral Pulses: positive: 2+ Abdomen: positive: Non-tender, No organomegaly, Nml bowel sounds, No distention Skin: positive: Color nml, No rash, Warm Extremities: positive: Non-tender, Full ROM, Nml appearance Neurologic/Psychiatric: positive: Oriented x3, CN's nml (2-12) - LABS Result Diagrams: 04/17/18 05:20 04/17/18 05:20 - DIAGNOSTIC IMAGING Diagnostic Imaging Results: Final report reviewed - QUALITY (Female Hip Fx Only) Was patient sent home on osteoporosis medication?: No (Did not meet criteria) - FOLLOW UP Follow Up: Patient To follow-up with PCP in 1 or 2 weeks, to be followed up with her guitar instructor in 2-3 weeks, follow-up with primary hvac operations technician/oncologist as scheduled. - TIME SPENT Time Spent in Discharge (Minutes): 35
[2018-04-17] MEDS ORDERED: ISOSORBIDE MONONITRATE 10 MG TABLET PO SCH (09:00)
[2018-04-17] MEDS ORDERED: MULTIVITAMIN TABLET PO SCH (09:00)
[2018-04-17] MEDS ORDERED: predniSONE 20 MG TABLET PO SCH (09:00)
[2018-04-17] MEDS ORDERED: FUROSEMIDE 20 MG TABLET PO SCH (09:00)
[2018-04-17] MEDS: FERROUS SULFATE 325 MG TABLET PO SCH (09:09)
[2018-04-17] MEDS: CALCIUM CARB (OYSTER SHELL) 500 MG TABLET PO SCH (09:09)
[2018-04-17] MEDS: POTASSIUM CHLORIDE 20 MEQ TABLET PO SCH (09:09)
[2018-04-17] MEDS: CHOLECALCIFEROL 400 UNIT TABLET PO SCH (09:09)
[2018-04-17] MEDS: LACTOBACILLUS RHAMNOSUS GG CAPSULE PO SCH (09:09)
[2018-04-17] MEDS: POLYETHYLENE GLYCOL 3350 17 GM PACKET PO SCH (09:10)
== END 2018-04-17 10:15 | disposition home or self-care (01) | DRG 292 ==
LOC: EDUNIT# → ED 03:13 → MS2 06:06 → OBSVTOIN 10:57
PROVIDERS: ADMIT Specialist; ATTEND Family Medicine
DX: I50.9 Heart failure, unspecified (principal); I48.91 Unspecified atrial fibrillation; I50.33 Acute on chronic diastolic (congestive) heart failure; L51.1 Stevens-Johnson syndrome; J44.9 Chronic obstructive pulmonary disease, unspecified; K21.9 Gastro-esophageal reflux disease without esophagitis; K44.9 Diaphragmatic hernia without obstruction or gangrene; H91.90 Unspecified hearing loss, unspecified ear; F32.9 Major depressive disorder, single episode, unspecified; M19.90 Unspecified osteoarthritis, unspecified site; M81.0 Age-related osteoporosis without current pathological fracture; L30.9 Dermatitis, unspecified; L40.9 Psoriasis, unspecified; Z90.49 Acquired absence of other specified parts of digestive tract; Z95.0 Presence of cardiac pacemaker; Z79.52 Long term (current) use of systemic steroids; Z88.2 Allergy status to sulfonamides; Z91.013 Allergy to seafood; Z96.649 Presence of unspecified artificial hip joint; N18.9 Chronic kidney disease, unspecified; I48.2 Chronic atrial fibrillation; I08.1 Rheumatic disorders of both mitral and tricuspid valves; M35.3 Polymyalgia rheumatica; N18.3 Chronic kidney disease, stage 3 (moderate); D50.9 Iron deficiency anemia, unspecified; Z87.891 Personal history of nicotine dependence; Z66 Do not resuscitate
CPT/HCPCS: 36415; 71046; 80048; 80053; 80069; 82607; 82746; 83540; 83690; 83735; 83880; 84466; 84484; 85025; 85610; 93005; 93308; 96374; 99285; A9270; G0378; J7512; 99284

== ENCOUNTER 2018-05-12 08:00 | Outpatient (CLI) | payer MEDICARE, OTHER ==
[2018-05-12 11:07] LABS: CREATININE,URINE 37.2 mg/dL; PROTEIN/CREATININE RATIO,URINE 0.3 (<=0.2)
== END 2018-05-12 23:59 | disposition home or self-care (01) ==
LOC: LAB.R 08:00
PROVIDERS: ATTEND Internal Medicine Nephrology
DX: R80.9 Proteinuria, unspecified (principal)
CPT/HCPCS: 82570; 84156

== ENCOUNTER 2018-05-25 14:42 | Outpatient (CLI) | payer MEDICARE, OTHER ==
[2018-05-25 16:14] LABS: BASOPHILS % (AUTO) 0.4 %; HGB - HEMOGLOBIN 12.4 g/dL (12.0-16.0); LYMPHOCYTES # (AUTO) 0.6 10^3/uL (1.5-3.5); LYMPHOCYTES % (AUTO) 4.5 %; MEAN CORPUSCULAR HEMOGLOBIN 31.7 pg (27.0-31.0); MEAN CORPUSCULAR HGB CONC 32.2 g/dL (32.0-36.0); MEAN CORPUSCULAR VOLUME 98.6 fL (81.0-99.0); MEAN PLATELET VOLUME 8.9 fL (7.9-10.8); MONOCYTES # (AUTO) 0.8 10^3/uL (0.0-1.0); MONOCYTES % (AUTO) 6.3 %; NEUTROPHILS # (AUTO) 11.2 10^3/uL (1.5-6.6); NEUTROPHILS % (AUTO) 88.8 %; PLT - PLATELET COUNT 295 10^3/uL (130-450); RED BLOOD COUNT 3.91 10^6/uL (4.20-5.40); RED CELL DISTRIBUTION WIDTH 13.8 % (12.0-15.0); WHITE BLOOD COUNT 12.6 x10^3/uL (4.8-10.8)
[2018-05-25 16:38] LABS: CALCIUM 9.8 mg/dL (8.5-10.3); CREATININE 1.6 mg/dL (0.4-1.0)
== END 2018-05-25 14:43 | disposition home or self-care (01) ==
LOC: LAB 14:42
PROVIDERS: ATTEND Internal Medicine Nephrology
DX: N05.9 Unspecified nephritic syndrome with unspecified morphologic changes (principal); D70.9 Neutropenia, unspecified; D63.1 Anemia in chronic kidney disease; E83.30 Disorder of phosphorus metabolism, unspecified; N25.81 Secondary hyperparathyroidism of renal origin
CPT/HCPCS: 36415; 80048; 83970; 84100; 85025

== ENCOUNTER 2018-07-10 08:59 | Outpatient (CLI) | payer MEDICARE, OTHER ==
[2018-07-10 09:32] LABS: CALCIUM 9.4 mg/dL (8.5-10.3); CREATININE 1.5 mg/dL (0.4-1.0)
== END 2018-07-10 09:00 | disposition home or self-care (01) ==
LOC: LAB 08:59
PROVIDERS: ATTEND Internal Medicine Nephrology
DX: N05.9 Unspecified nephritic syndrome with unspecified morphologic changes (principal); I50.32 Chronic diastolic (congestive) heart failure
CPT/HCPCS: 36415; 80048; 83880

== ENCOUNTER 2018-07-11 09:18 | Outpatient (CLI) | payer MEDICARE, OTHER ==
--- NOTE | 2018-07-11 12:17 | Ultrasound Report ---
Reason: ACUTE KIDNEY INJURY Procedure Date: 07/11/2018 Accession Number: [id number] / [id number] Procedure: US - Retroperitoneal CPT Code: FULL RESULT: EXAM: RENAL ULTRASOUND EXAM DATE: 07/11/2018 10:03 AM. CLINICAL HISTORY: ACUTE KIDNEY INJURY. COMPARISON: None. TECHNIQUE: Real-time scanning was performed with static images obtained. FINDINGS: Right Kidney: 8 cm. A 0.6 cm echogenic focus at the superior most aspect of the upper pole does not demonstrate shadowing or twinkle artifact and is felt to possibly represent focal fat versus a very small fat-containing lesion such as angiomyolipoma. Normal echotexture with no stones, or hydronephrosis. Left Kidney: 8.6 cm. The superior pole of the kidney demonstrates a hypoechoic lesion with increased through transmission and internal echoes, possibly a complex cyst, 1.5 x 1.5 x 1.0 cm. No hydronephrosis or renal calculi. Bladder: Bilateral jets seen. The prevoid bladder volume was 222 cc. The postvoid bladder volume was 91 cc. Other: None. IMPRESSION: No hydronephrosis. Postvoid residual of 91 cc. The left renal upper pole cystic lesion is not characterized as a simple cyst. Options include follow-up or definitive characterization by multiphase CT or MRI. Subcentimeter right renal upper pole echogenic focus is of unclear clinical significance and too small to definitively characterize by other imaging modalities. [facility]
== END 2018-07-11 09:19 | disposition home or self-care (01) ==
LOC: DI 09:18
PROVIDERS: ATTEND Internal Medicine Nephrology
DX: N17.9 Acute kidney failure, unspecified (principal); N28.9 Disorder of kidney and ureter, unspecified
CPT/HCPCS: 76770

== ENCOUNTER 2018-07-18 08:00 | Outpatient (CLI) | payer MEDICARE, OTHER ==
[2018-07-18 10:28] LABS: PROTEIN/CREATININE RATIO,URINE 0.1 (<=0.2)
== END 2018-07-18 23:59 | disposition home or self-care (01) ==
LOC: LAB.R 08:00
PROVIDERS: ATTEND Internal Medicine Nephrology
DX: R80.9 Proteinuria, unspecified (principal)
CPT/HCPCS: 82570; 84156

== ENCOUNTER 2018-08-02 09:46 | Outpatient (CLI) | payer MEDICARE, OTHER ==
[2018-08-02 10:14] LABS: HGB - HEMOGLOBIN 13.3 g/dL (12.0-16.0); MEAN CORPUSCULAR HEMOGLOBIN 30.6 pg (27.0-31.0); MEAN CORPUSCULAR HGB CONC 30.9 g/dL (32.0-36.0); MEAN CORPUSCULAR VOLUME 99.3 fL (81.0-99.0); MEAN PLATELET VOLUME 10.5 fL (7.9-10.8); RED BLOOD COUNT 4.34 10^6/uL (4.20-5.40); RED CELL DISTRIBUTION WIDTH 13.3 % (12.0-15.0); WHITE BLOOD COUNT 11.6 x10^3/uL (4.8-10.8)
[2018-08-02 10:24] LABS: CALCIUM 9.9 mg/dL (8.5-10.3); CREATININE 1.6 mg/dL (0.4-1.0)
[2018-08-02 11:28] LABS: T4 (THYROXINE) 8.21 ug/dL (6.09-12.23)
[2018-08-02 11:32] LABS: THYROID STIMULATING HORMONE 1.6 uIU/mL (0.34-5.60)
== END 2018-08-02 09:47 | disposition home or self-care (01) ==
LOC: LAB 09:46
PROVIDERS: ATTEND Family Medicine
DX: I34.0 Nonrheumatic mitral (valve) insufficiency (principal); I48.91 Unspecified atrial fibrillation; M35.3 Polymyalgia rheumatica
CPT/HCPCS: 36415; 80048; 83880; 84436; 84443; 84481; 85027

== ENCOUNTER 2018-10-03 10:30 | Outpatient (CLI) | payer MEDICARE, OTHER ==
[2018-10-03 11:38] LABS: T4 (THYROXINE) 7.17 ug/dL (6.09-12.23)
[2018-10-03 11:42] LABS: THYROID STIMULATING HORMONE 1.54 uIU/mL (0.34-5.60)
== END 2018-10-03 10:31 | disposition home or self-care (01) ==
LOC: LAB 10:30
PROVIDERS: ATTEND Family Medicine
DX: I48.91 Unspecified atrial fibrillation (principal)
CPT/HCPCS: 36415; 84436; 84443; 84481

== ENCOUNTER 2018-10-11 09:23 | Emergency (ER) | payer MEDICARE, OTHER ==
--- NOTE | 2018-10-11 10:26 | ED Physician Documentation ---
PD HPI Fall - Stated complaint Stated Complaint: LEFT KNEE PX - Chief complaint Chief Complaint: Ext Problem - History obtained from History obtained from: Patient - History of Present Illness Mechanism of injury: Tripped Fall distance: Standing position Timing - onset: Yesterday Injury(ies) location: Left Lower Extremity (she tripped on incline and landed to left knee, with pain on front of knee. Was helped up and felt pain right ribs when lifted by her torso. Hurts with movement and deep breathing.) Associated symptoms: No: LOC, AMS, Neck pain, Weakness, Paresthesias Contributing factors: No: Anticoagulated Similar symptoms before: Has not had sx before Review of Systems GI: denies: Abdominal Pain Skin: denies: Abrasion (s), Laceration (s) Musculoskeletal: reports: Joint pain (left knee). denies: Neck pain, Back pain PD PAST MEDICAL HISTORY - Past Medical History Cardiovascular: Congestive heart failure, Atrial fibrillation Respiratory: COPD, Pneumonia Neuro: None Endocrine/Autoimmune: None GI: GERD, Hiatal hernia : Other HEENT: Chronic hearing loss Psych: Depression Musculoskeletal: Osteoarthritis, Osteoporosis, Other Derm: Eczema, Psoriasis, Other - Past Surgical History Past Surgical History: Yes General: Cholecystectomy, Appendectomy, Colonoscopy, EGD Ortho: Hip replacement, Other /[employer]: Tubal ligation, Other Cardiovascular: Pacemaker, Other HEENT: Cataracts Derm: Skin cancer surgery - Present Medications Home Medications: Ambulatory Orders Medication Instructions Recorded Confirmed Furosemide [Lasix] 20 mg PO BID #60 tablet 04/17/18 predniSONE [Prednisone] 20 mg PO DAILY #7 tablet 04/17/18 - Allergies Allergies/Adverse Reactions: Allergies Allergy/AdvReac Type Severity Reaction Status Date / Time diltiazem Allergy Severe Rash Verified 10/11/18 09:38 shrimp Allergy Severe Anaphylaxis Verified 10/11/18 09:38 Sulfa (Sulfonamide Allergy Severe Respiratory Verified 10/11/18 09:38 Antibiotics) Gbshhly-Mbt-Kav Reductase Allergy Cramps Verified 10/11/18 09:38 Inhibitor metoprolol AdvReac Respiratory Verified 10/11/18 09:38 - Social History Does the pt smoke?: No Smoking Status: Never smoker Does the pt drink ETOH?: Yes Does the pt have substance abuse?: No - Immunizations Immunizations are current?: Yes - POLST Patient has POLST: Yes POLST Status: DNR PD ED PE NORMAL - Vitals Vital signs reviewed: Yes - General General: Alert and oriented X 3, No acute distress, Well developed/nourished - HEENT HEENT: Atraumatic - Neck Neck: Supple, no meningeal sign, No bony TTP, No adenopathy - Cardiac Cardiac: RRR, No murmur - Respiratory Respiratory: Clear bilaterally, Other (some chestwall tenderness right midaxillary area, without crepitance. ) - Abdomen Abdomen: Soft, Non tender - Back Back: No CVA TTP, No spinal TTP - Derm Derm: Normal color, Warm and dry - Extremities Extremities: Other (left knee with some tenderness and swelling anteriorly. No noted effusion. No laxity with ligament testing. ) - Neuro Neuro: Alert and oriented X 3, No motor deficit, Normal speech Results - Vitals Vitals: Vital Signs - 24 hr 10/11/18 10/11/18 10/11/18 09:30 09:53 12:34 Temperature 36.7 C 36.6 C Heart Rate 67 59 L 60 Respiratory 18 20 18 Rate Blood Pressure 94/56 L 110/62 122/64 O2 Saturation 99 97 97 10/11/18 12:45 Temperature 36.6 C Heart Rate 60 Respiratory 20 Rate Blood Pressure 122/64 O2 Saturation 98 Oxygen O2 Source [With Activity] Room air O2 Source Room air - Rads (name of study) left knee Radiology: Prelim report reviewed (no fractures), See rad report right ribs Radiology: Prelim report reviewed (no fractures), See rad report PD MEDICAL DECISION MAKING - ED course Complexity details: reviewed results, re-evaluated patient (she declined more than Tylenol for the pains. ), considered differential, d/w patient Departure - Departure Disposition: 01 Home, Self Care Clinical Impression: Knee contusion Qualifiers: Encounter type: initial encounter Laterality: left Qualified Code(s): S80.02XA - Contusion of left knee, initial encounter Strain of chest wall Qualifiers: Encounter type: initial encounter Qualified Code(s): S29.011A - Strain of muscle and tendon of front wall of thorax, initial encounter Condition: Stable Record reviewed to determine appropriate education?: Yes Comments: No fractures seen. Tylenol as needed for pains. Activity as able. Discharge Date/Time: 10/11/18 12:45
[2018-10-11] MEDS ORDERED: ACETAMINOPHEN 325 MG TABLET PO STA (10:56)
--- NOTE | 2018-10-11 12:24 | XRAY Report ---
Reason: fell to left knee yest; hurt ribs being helped up Procedure Date: 10/11/2018 Accession Number: [id number] / [id number] Procedure: XR - Knee 4 View LT CPT Code: FULL RESULT: EXAM: LEFT KNEE RADIOGRAPHY EXAM DATE: 10/11/2018 11:33 AM. CLINICAL HISTORY: Fell to left knee yest; hurt ribs being helped up. COMPARISON: None. TECHNIQUE: 4 views. FINDINGS: Bones: Bones appear osteopenic. No fractures or bone lesions. Joints: Chondrocalcinosis. Soft Tissues: Atherosclerotic arterial calcifications. Probable lateral collateral ligament calcification adjacent to lateral femoral condyle. IMPRESSION: 1. No fracture evident. [facility]
--- NOTE | 2018-10-11 12:24 | XRAY Report ---
Reason: fell to left knee yest; hurt ribs being helped up Procedure Date: 10/11/2018 Accession Number: [id number] / [id number] Procedure: XR - Ribs w/PA Chest RT CPT Code: FULL RESULT: EXAM: RIGHT RIB RADIOGRAPHY EXAM DATE: 10/11/2018 11:36 AM. CLINICAL HISTORY: Fell to left knee yest; hurt ribs being helped up. Right lower anterior rib pain since fall yesterday. COMPARISON: CHEST 2 VIEW 04/16/2018 3:34 AM. TECHNIQUE: 1 view of the chest and 2 views of the ribs. FINDINGS: Bones: No definite acute fracture or malalignment. Bones appear osteopenic. Lungs: Mild bilateral basal predominant interstitial opacity, similar to prior. Cardiomegaly. Central pulmonary vascular congestion. Probable small bilateral pleural effusions. No detectable pneumothorax. Mediastinum: As above. Implantable loop recorder projects over the heart. Other: None. IMPRESSION: 1. No definite acute fracture or malalignment. Please note that a nondisplaced rib fracture may be radiographically inapparent. 2. Findings suggest mild congestive failure. [facility]
[2018-10-11 12:35] VITALS: BP 122/64
== END 2018-10-11 12:45 | disposition home or self-care (01) ==
LOC: ED 09:23
DX: S80.02XA Contusion of left knee, initial encounter (principal); S29.011A Strain of muscle and tendon of front wall of thorax, initial encounter; W01.0XXA Fall on same level from slipping, tripping and stumbling without subsequent striking against object, initial encounter; Y93.01 Activity, walking, marching and hiking; Y92.828 Other wilderness area as the place of occurrence of the external cause; Z66 Do not resuscitate
CPT/HCPCS: 99284